=== PATIENT | female | born 1995 | race Caucasian/White ===

== ENCOUNTER 2016-06-18 18:47 | Emergency (ER) | payer OTHER ==
[2016-06-18] MEDS ORDERED: Ondansetron ODT TAB* 4 MG PO ONE (19:26)
[2016-06-18] MEDS ORDERED: Ondansetron INJ* 2 MG/ML VIAL IV ONE (22:05)
[2016-06-18] MEDS ORDERED: NS 0.9% 1000 ML* 2,000 ML IV ONE (22:05)
[2016-06-18] MEDS ORDERED: Ketorolac INJ* 30 MG/ML 1 ML VIAL IM ONE (22:05)
[2016-06-18] MEDS ORDERED: Meclizine TAB* 12.5 MG PO ONE (22:14)
[2016-06-18] MEDS ORDERED: Ketorolac INJ* 30 MG/ML 1 ML VIAL IV PUSH ONE (23:06)
[2016-06-18] MEDS ORDERED: Albuterol/Ipratropium NEB.SOL* Albuterol 2.5 MG/Ipratropium 0.5 MG 3 ML INH ONE (23:12)
[2016-06-18 23:21] LABS: Hematocrit 37 % (35-47); Hemoglobin 12.2 g/dl (12.0-16.0); Mean Corpuscular HGB Conc 33 g/dl (31-36); Mean Corpuscular Hemoglobin 28 pg (27-31); Mean Corpuscular Volume 84 fL (80-97); Mean Platelet Volume 8 um3 (7.4-10.4); Red Blood Count 4.38 10^6/ul (4.0-5.4); Red Cell Distribution Width 14 % (10.5-15); White Blood Count 8.6 10^3/ul (3.5-10.8)
[2016-06-18 23:38] LABS: ALT 16 U/L (7-52); AST 15 U/L (13-39); Albumin 3.7 g/dL (3.2-5.2); Alkaline Phosphatase 66 U/L (34-104); Anion Gap 4 mmol/L (2-11); BUN/Creatinine Ratio 9.2 (8-20); Blood Urea Nitrogen 6 mg/dL (6-24); CO2 Carbon Dioxide 30 mmol/L (22-32); Calcium 9.1 mg/dL (8.6-10.3); Chloride 103 mmol/L (101-111); EGFR African American 146.6 (>60); Globulin 2.6 g/dL (2-4); Glucose 93 mg/dL (70-100); Lipase 10 U/L (11.0-82.0); Potassium 3.8 mmol/L (3.5-5.0); Sodium 137 mmol/L (133-145); Total Protein 6.3 g/dL (6.4-8.9)
[2016-06-19] MEDS ORDERED: Meclizine TAB* 12.5 MG PO ONE ×2 (00:26)
--- NOTE | 2016-06-19 00:30 | ED ---
Indigo Jung Matthew, scribed for Ulises Barber on 06/18/16 at 2214 . GI/ HPI - HPI Summary HPI Summary: A 21 y/o female presents to the ED with nausea and vomiting since 3 days ago. Associated symptoms include vomiting - 6x today, dizziness, and headache. The patient denies diarrhea, abdominal pain, fever, sore throat, chest pain, and SOB. She was seen by her PCP for vertigo and prescribed meclazine at that time. She took her last dose of meclazine this morning, but she was unable to drive herself to the pharmacy to get more medication. She has a Hx of migraines, depression, and anxiety. - History of Current Complaint Chief Complaint: EDNauseaVomitDiarrh Time Seen by Provider: 06/18/16 21:48 Stated Complaint: VOMITING/HEADACHE Hx Obtained From: Patient Onset/Duration: Started Days Ago, Atraumatic, Still Present Timing: Constant Severity: Moderate Current Severity: Moderate Associated Signs and Symptoms: Positive: Dizziness, Nausea, Vomiting - 6x today. Negative: Diarrhea, Fever, Abdominal Pain, Chest Pain - Allergy/Home Medications Allergies/Adverse Reactions: Allergies Allergy/AdvReac Type Severity Reaction Status Date / Time Reglan Allergy Severe Itching Uncoded 03/29/16 12:29 PMH/Surg Hx/FS Hx/Imm Hx Endocrine/Hematology History: Denies: Hx Anticoagulant Therapy, Hx Diabetes, Hx Thyroid Disease Cardiovascular History: Denies: Hx Hypertension, Hx Pacemaker/ICD Respiratory History: Reports: Hx Asthma - Exercise Denies: Hx Chronic Obstructive Pulmonary Disease (COPD) GI History: Denies: Hx Ulcer History: Denies: Hx Renal Disease Neurological History: Denies: Hx Dementia, Hx Seizures Psychiatric History: Reports: Hx Anxiety - on prozac, Hx Depression - on prozac , Other Psychiatric Issues/Disorders - add and migraines takes percocet Denies: Hx Substance Abuse - Surgical History Surgery Procedure, Year, and Place: Right arm reset as a child under anesthesia. - Immunization History Date of Tetanus Vaccine: up to date per pt Infectious Disease History: No Infectious Disease History: Denies: Hx Clostridium Difficile, Hx Hepatitis, Hx Human Immunodeficiency Virus (HIV), Hx of Known/Suspected MRSA, Hx Shingles, Hx Tuberculosis, Hx Known/ Suspected VRE, Hx Known/Suspected VRSA, History Other Infectious Disease, Traveled Outside the [place] in Last 30 Days - Family History Known Family History: Positive: Respiratory Disease - asthma - Social History Alcohol Use: Rare Substance Use Type: Reports: None Substance Use Comment - Amount & Last Used: HX MARIJUANA USE; NOT SINCE FOUND OUT SHE WAS Smoking Status (MU): Former Smoker Type: Cigarettes Amount Used/How Often: 1 pk/wk Have You Smoked in the Last Year: Yes Review of Systems Constitutional: Negative Negative: Fever Eyes: Negative ENT: Negative Negative: Sore Throat Cardiovascular: Negative Negative: Chest Pain Respiratory: Negative Negative: Shortness Of Breath Positive: Vomiting, Nausea. Negative: Abdominal Pain Musculoskeletal: Negative Skin: Negative Neurological: Other - Dizziness Positive: Headache Psychological: Normal All Other Systems Reviewed And Are Negative: Yes Physical Exam Triage Information Reviewed: Yes Vital Signs On Initial Exam: Initial Vitals Temp Pulse Resp BP Pulse Ox 98.5 F 83 16 132/66 93 06/18/16 18:58 06/18/16 18:58 06/18/16 18:58 06/18/16 18:58 06/18/16 18:58 Vital Signs Reviewed: Yes Appearance: Positive: Well-Appearing, No Pain Distress Skin: Positive: Warm, Skin Color Reflects Adequate Perfusion, Dry Head/Face: Positive: Normal Head/Face Inspection Eyes: Positive: EOMI, PATO ENT: Positive: Normal ENT inspection, TMs normal. Negative: TM dull, TM red Neck: Positive: Supple, Nontender Respiratory/Lung Sounds: Positive: Clear to Auscultation, Breath Sounds Present Cardiovascular: Positive: RRR Abdomen Description: Positive: Nontender, Soft. Negative: Distended, Guarding Bowel Sounds: Positive: Present Musculoskeletal: Positive: Normal, Strength/ROM Intact Neurological: Positive: Normal, Sensory/Motor Intact, Alert, Oriented to Person Place, Time Psychiatric: Positive: Normal, Affect/Mood Appropriate Diagnostics - Vital Signs Vital Signs Temp Pulse Resp BP Pulse Ox 06/18/16 21:26 98.2 F 76 20 94 06/18/16 18:58 98.5 F 83 16 132/66 93 - Laboratory Result Diagrams: 06/18/16 22:56 06/18/16 22:56 Lab Statement: Any lab studies that have been ordered have been reviewed, and results considered in the medical decision making process. GIGU Course/Dx - Course Assessment/Plan: A 21 y/o female presents to the ED with vertigo, dizziness, and vomiting. Labs were reviewed. IV fluids were given along with Zofran and meclizine. The patient feels better and she will be discharged home on Zofran and meclizine. She is to follow-up with her PCP in three days. - Diagnoses Provider Diagnoses: Vertigo, Vomiting, Dizziness Discharge - Discharge Plan Condition: Stable Disposition: HOME Patient Education Materials: Ondansetron (By mouth), Meclizine (By mouth), Vertigo (ED) Referrals: Ky Dominguez OIL BURNER INSTALLER [Primary Care Provider] - 3 Days Additional Instructions: Please follow-up with your primary care physician in 3 days. The documentation as recorded by the Indigo whitman Matthew accurately reflects the service I personally performed and the decisions made by , Ulises Barber.
[2016-06-19 01:39] VITALS: BP 126/74
== END 2016-06-19 01:10 | disposition home or self-care (01) ==
LOC: ED 18:47
DX: R42 Dizziness and giddiness (principal); R11.10 Vomiting, unspecified; F41.9 Anxiety disorder, unspecified; F32.9 Major depressive disorder, single episode, unspecified; Z87.891 Personal history of nicotine dependence
CPT/HCPCS: 36415; 80053; 83690; 84702; 85025; 96360; 96374; 96375; 99284; A9270-GY; J1885; J2405

== ENCOUNTER 2017-02-12 16:04 | Emergency (ER) | payer OTHER ==
--- NOTE | 2017-02-12 17:11 | UC ---
Skin Complaint HPI - HPI Summary HPI Summary: ONSET OF PAINFUL VESICULAR LESIONS PERINEAL AREA FOR ABOUT 10 DAYS. PT IS IN A MONOGAMOUS RELATIONSHIP WITH HER BF WHO HAS KNOWN GENITAL HERPES AND TAKES DAILY VALTREX. THEY THINK HE MAYBE MISSED A FEW DAYS AND THEN SHE BROKE OUT. IS MOSTLY BETTER NOW EXCEPT FOR A SMALL PATCH ON THE RIGHT SIDE. - History of Current Complaint Chief Complaint: UCGeneralIllness Time Seen by Provider: 02/12/17 16:28 Stated Complaint: PERSONAL Hx Obtained From: Patient Hx Last Menstrual Period: 02/05/17 Onset/Duration: Sudden Onset, Lasting Days, Still Present Skin Exposure Onset/Duration: Days Ago Timing: Constant Onset Severity: Moderate Current Severity: Moderate Pain Intensity: 9 Pain Scale Used: 0-10 Numeric Location: Discrete - PERINEUM Character: Pain Aggravating Factor(s): Clothing, Touch Alleviating Factor(s): Nothing Associated Signs & Symptoms: Positive: Rash, Tenderness - Allergy/Home Medications Allergies/Adverse Reactions: Allergies Allergy/AdvReac Type Severity Reaction Status Date / Time Reglan Allergy Severe Itching Uncoded 02/12/17 16:08 Home Medications: Home Medications FLUoxetine CAP* [Prozac CAP*] 60 mg PO DAILY 02/12/17 [History Confirmed ] Lisdexamfetamine(NF) [Vyvanse(NF)] 70 mg PO DAILY 02/12/17 [History Confirmed ] Review of Systems Constitutional: Negative Respiratory: Negative Cardiovascular: Negative Gastrointestinal: Negative Genitourinary: Ulceration/Lesion All Other Systems Reviewed And Are Negative: Yes PMH/Surg Hx/FS Hx/Imm Hx Previously Healthy: Yes Other History Of: Negative For: Anticoagulant Therapy - Surgical History Surgical History: Yes Surgery Procedure, Year, and Place: Right arm reset as a child under anesthesia. - Family History Known Family History: Positive: Respiratory Disease - asthma - Social History Alcohol Use: Rare Substance Use Type: None Substance Use Comment - Amount & Last Used: HX MARIJUANA USE; NOT SINCE FOUND OUT SHE WAS Smoking Status (MU): Current Some Day Smoker Type: Cigarettes Amount Used/How Often: 1 pk/wk Have You Smoked in the Last Year: Yes When Did the Patient Quit Smoking/Using Tobacco: 05/30/2014 - Immunization History Most Recent Influenza Vaccination: Most Recent Tetanus Shot: 11/06/14 Most Recent Pneumonia Vaccination: none Physical Exam Triage Information Reviewed: Yes Appearance: Well-Appearing, No Pain Distress, Well-Nourished Vital Signs: Initial Vital Signs Temp 96.8 F 02/12/17 16:08 Pulse 103 02/12/17 16:08 Resp 16 02/12/17 16:08 Pulse Ox 99 02/12/17 16:08 Vital Signs Reviewed: Yes Eyes: Positive: Conjunctiva Clear ENT: Positive: Hearing grossly normal Neck: Positive: Supple, Nontender, No Lymphadenopathy Respiratory Exam: Normal Cardiovascular Exam: Normal Abdomen Description: Positive: Soft Musculoskeletal: Positive: No Edema Neurological: Positive: Alert Psychological: Positive: Age Appropriate Behavior Skin: Positive: Other - 2CM IRREGULAR SHALLOW ULCERATION RIGHT PERINEUM. TENDER. Course/Dx - Diagnoses Provider Diagnoses: GENITAL HERPES - INITIAL OUTBREAK Discharge - Discharge Plan Condition: Stable Disposition: HOME Prescriptions: Acyclovir OINT 5%(NF) [Zovirax Oint 5%(NF)] 1 applic TOPICAL .SIX TIMES A DAY # 1 tube ValACYclovir (*) [Valtrex 1 GM(*)] 1 gm PO BID #14 tab Patient Education Materials: Genital Herpes Simplex (ED) Forms: *Work Release Referrals: Ky Dominguez NP [Primary Care Provider] - 2 Weeks Additional Instructions: FOLLOW-UP WITH YOUR PCP TO DISCUSS DAILY PROPHYLACTIC TREATMENT. THE ZOVIRAX OINTMENT MAY NEED A PRIOR AUTHORIZATION. IF SO YOU WILL NEED TO GET THIS FROM YOUR PCP.
== END 2017-02-12 17:19 | disposition home or self-care (01) ==
LOC: UCEAST 16:04
DX: A60.04 Herpesviral vulvovaginitis (principal); F17.210 Nicotine dependence, cigarettes, uncomplicated; Z88.8 Allergy status to other drugs, medicaments and biological substances
CPT/HCPCS: 99212; G0463

== ENCOUNTER 2017-03-09 22:28 | Observation (INO) | payer OTHER ==
[2017-03-09] MEDS ORDERED: Albuterol/Ipratropium NEB.SOL* Albuterol 2.5 MG/Ipratropium 0.5 MG 3 ML INH ONE (22:40)
[2017-03-10] MEDS ORDERED: guaiFENesin/CODIEN 100MG-10MG* 5 ML UDC PO ONE (00:01)
[2017-03-10] MEDS ORDERED: methylPREDNISolone 125 MG* 2 ML VIAL IV ONE (00:01)
[2017-03-10] MEDS ORDERED: Albuterol 2.5 MG/3 ML NEB.SOL* (0.083%) ONE ×2 (00:47)
[2017-03-10] MEDS: Albuterol 2.5 MG/3 ML NEB.SOL* (0.083%) INH SCH ×3 (00:51→01:28)
[2017-03-10 01:03] LABS: Hematocrit 37 % (35-47); Hemoglobin 12.4 g/dl (12.0-16.0); Mean Corpuscular HGB Conc 33 g/dl (31-36); Mean Corpuscular Hemoglobin 29 pg (27-31); Mean Corpuscular Volume 88 fL (80-97); Mean Platelet Volume 8 um3 (7.4-10.4); Red Blood Count 4.22 10^6/ul (4.0-5.4); Red Cell Distribution Width 14 % (10.5-15); White Blood Count 9.9 10^3/ul (3.5-10.8)
[2017-03-10 01:10] LABS: Urine Bacteria Absent (Absent); Urine Bilirubin Negative (Negative); Urine Glucose Negative (Negative); Urine Nitrite Negative (Negative)
[2017-03-10 01:20] LABS: ALT 19 U/L (7-52); AST 19 U/L (13-39); Albumin 3.8 g/dL (3.2-5.2); Alkaline Phosphatase 80 U/L (34-104); Anion Gap 5 mmol/L (2-11); BUN/Creatinine Ratio 11.9 (8-20); Blood Urea Nitrogen 7 mg/dL (6-24); CO2 Carbon Dioxide 25 mmol/L (22-32); Calcium 8.8 mg/dL (8.6-10.3); Chloride 107 mmol/L (101-111); EGFR African American 162.4 (>60); EGFR Non-African American 126.3 (>60); Globulin 2.7 g/dL (2-4); Glucose 83 mg/dL (70-100); Potassium 3.8 mmol/L (3.5-5.0); Sodium 137 mmol/L (133-145); Total Protein 6.5 g/dL (6.4-8.9)
[2017-03-10] MEDS ORDERED: Azithromycin IV(*) 500 MG in NS 0.9% 250 ML* 250 ML IVPB ONE (01:41)
--- NOTE | 2017-03-10 01:59 | ED ---
Katty Jung Rebecca, scribed for Denise Macias MD on 03/09/17 at 2350 . Shortness of Breath - HPI Summary HPI Summary: Pt is a 22 y/o F who presents to ED c/o nonproductive cough and SOB. Sx have been present for multiple days, worsening last night. Sx aggravated by nothing, alleviated temporarily by nebulizer. Notes CP characterized as tightness. Additionally c/o rash on her back that has been present for "weeks going on months" as well as L foot tingling that has been present for "a while." Denies fever. PMHx asthma - Dx at age 9 and she has a nebulizer which she has been alternating duonebs and albuterol every hour. She has never been admitted for asthma. Recent Dx of UTI but she did not picker feeder her meds. PCP is Dr. Dominguez where she had labs done a few weeks ago. Has not gotten her flu vaccination. Recent Dx of UTI. Uses Advair, Ventolin (rescue inhaler), Zyrtec, Fluticasone, Prozac, Vyvanse, Adderall, Ativan, Gabapentin (started a few weeks ago) and scopolamine patch. Uses Nexplanon for contraception. - History of Current Complaint Chief Complaint: EDShortnessOfBreath Time Seen by Provider: 03/09/17 23:15 Hx Obtained From: Patient, Family/Physician [facility] - mother is with pt Onset/Duration: Gradual Onset, Lasting Days, Still Present, Worse Since - Last night Timing: Constant Current Severity: Severe Dyspnea At: Rest Aggrevating Factors: Nothing Alleviating Factors: Bronchodilators, Other - Nebulizer Associated Signs & Symptoms: Cough (Nonproductive) - Allergy/Home Medications Allergies/Adverse Reactions: Allergies Allergy/AdvReac Type Severity Reaction Status Date / Time Reglan Allergy Severe Itching Uncoded 02/12/17 16:08 PMH/Surg Hx/FS Hx/Imm Hx Previously Healthy: No Endocrine/Hematology History: Denies: Hx Anticoagulant Therapy, Hx Diabetes, Hx Thyroid Disease Cardiovascular History: Denies: Hx Hypertension, Hx Pacemaker/ICD Respiratory History: Reports: Hx Asthma - Exercise, Hx Seasonal Allergies Denies: Hx Chronic Obstructive Pulmonary Disease (COPD) GI History: Denies: Hx Ulcer History: Denies: Hx Renal Disease Neurological History: Reports: Other Neuro Impairments/Disorders - Vertigo Denies: Hx Dementia, Hx Seizures Psychiatric History: Reports: Hx Anxiety - on prozac, Hx Depression - on prozac , Other Psychiatric Issues/Disorders - ADD and migraines, takes percocet, Vyvanse and Adderal Denies: Hx Substance Abuse - Surgical History Surgery Procedure, Year, and Place: Right arm reset as a child under anesthesia. 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 Lives: With Family Alcohol Use: Rare Substance Use Type: Reports: None Substance Use Comment - Amount & Last Used: HX MARIJUANA USE in past Smoking Status (MU): Current Some Day Smoker Type: Cigarettes Amount Used/How Often: 1 pk/wk Have You Smoked in the Last Year: Yes Review of Systems Negative: Fever Positive: Chest Pain - tightness Positive: Shortness Of Breath, Cough - nonproductive Gastrointestinal: Negative Positive: dysuria Positive: Rash - Back Neurological: Other - L foot tingling Psychological: Normal All Other Systems Reviewed And Are Negative: Yes Physical Exam Triage Information Reviewed: Yes Vital Signs On Initial Exam: Initial Vitals Temp Pulse Resp BP Pulse Ox 98.3 F 88 20 124/74 88 03/09/17 22:35 03/09/17 22:35 03/09/17 22:35 03/09/17 22:35 03/09/17 22:35 Vital Signs Reviewed: Yes Appearance: Positive: No Pain Distress, Well-Nourished, Ill-Appearing - mildly Skin: Positive: Warm, Skin Color Reflects Adequate Perfusion, Other - Ecchymosis on her L anterior tibia that is old, macular streaky rash on her back Head/Face: Positive: Normal Head/Face Inspection Eyes: Positive: Normal ENT: Positive: Normal ENT inspection, Pharynx normal, TMs normal. Negative: Nasal congestion, Nasal drainage, Muffled/hoarse voice Neck: Positive: Supple, Nontender, No Lymphadenopathy Respiratory/Lung Sounds: Positive: Breath Sounds Present, Wheezes - Inspiratory and expiratory wheezing, Other - She cannot take a deep breath without coughing , she has shallow respirations that are not labored Cardiovascular: Positive: RRR, Pulses are Symmetrical in both Upper and Lower Extremities. Negative: Leg Edema Left, Leg Edema Right Abdomen Description: Positive: Nontender, No Organomegaly, Soft. Negative: Distended, Guarding Bowel Sounds: Positive: Present Musculoskeletal: Positive: Strength/ROM Intact, Other - No calf tenderness. Negative: Edema Left, Edema Right Neurological: Positive: Sensory/Motor Intact, Alert, Oriented to Person Place, Time, Facial Symmetry, Speech Normal Psychiatric: Positive: Normal Diagnostics - Vital Signs Vital Signs Temp Pulse Resp BP Pulse Ox 03/09/17 22:57 85 16 97 03/09/17 22:35 98.3 F 88 20 124/74 88 - Laboratory Lab Results: Lab Results 03/10/17 03/10/17 03/10/17 Range/Units 00:40 00:40 00:40 WBC 9.9 (3.5-10.8) 10^3/ul RBC 4.22 (4.0-5.4) 10^6/ul Hgb 12.4 (12.0-16.0) g/dl Hct 37 (35-47) % MCV 88 (80-97) fL MCH 29 (27-31) pg MCHC 33 (31-36) g/dl RDW 14 (10.5-15) % Plt Count 246 (150-450) 10^3/ul MPV 8 (7.4-10.4) um3 Neut % (Auto) 60.9 (38-83) % Lymph % (Auto) 26.4 (25-47) % Pope % (Auto) 5.7 (1-9) % Eos % (Auto) 6.3 H (0-6) % Baso % (Auto) 0.7 (0-2) % Absolute Neuts (auto) 6.0 (1.5-7.7) 10^3/ul Absolute Lymphs (auto) 2.6 (1.0-4.8) 10^3/ul Absolute Monos (auto) 0.6 (0-0.8) 10^3/ul Absolute Eos (auto) 0.6 (0-0.6) 10^3/ul Absolute Basos (auto) 0.1 (0-0.2) 10^3/ul Absolute Nucleated RBC 0 10^3/ul Nucleated RBC % 0 INR (Anticoag Therapy) (0.89-1.11) D-Dimer, Quantitative (Less Than 230) ng/mL Sodium 137 (133-145) mmol/L Potassium 3.8 (3.5-5.0) mmol/L Chloride 107 (101-111) mmol/L Carbon Dioxide 25 (22-32) mmol/L Anion Gap 5 (2-11) mmol/L BUN 7 (6-24) mg/dL Creatinine 0.59 (0.51-0.95) mg/dL Est GFR ( Amer) 162.4 (>60) Est GFR (Non-Af Amer) 126.3 (>60) BUN/Creatinine Ratio 11.9 (8-20) Glucose 83 (70-100) mg/dL Lactic Acid 0.8 (0.5-2.0) mmol/L Calcium 8.8 (8.6-10.3) mg/dL Total Bilirubin 0.40 (0.2-1.0) mg/dL AST 19 (13-39) U/L ALT 19 (7-52) U/L Alkaline Phosphatase 80 (34-104) U/L Troponin I 0.00 (<0.04) ng/mL C-Reactive Protein 36.10 H (< 5.00) mg/L Total Protein 6.5 (6.4-8.9) g/dL Albumin 3.8 (3.2-5.2) g/dL Globulin 2.7 (2-4) g/dL Albumin/Globulin Ratio 1.4 (1-3) Beta HCG, Quant < 0.60 mIU/mL Urine Color Urine Appearance Urine pH (5-9) Ur Specific Delia (1.010-1.030) Urine Protein (Negative) Urine Ketones (Negative) Urine Blood (Negative) Urine Nitrate (Negative) Urine Bilirubin (Negative) Urine Urobilinogen (Negative) Ur Leukocyte Esterase (Negative) Urine WBC (Auto) (Absent) Urine RBC (Auto) (Absent) Ur Squamous Epith Cells (Absent) Urine Bacteria (Absent) Urine Glucose (Negative) Urine Ascorbic Acid (Negative) Influenza A (Rapid) (Negative) Influenza B (Rapid) (Negative) 03/10/17 03/10/17 03/10/17 Range/Units 00:40 00:50 01:06 WBC (3.5-10.8) 10^3/ul RBC (4.0-5.4) 10^6/ul Hgb (12.0-16.0) g/dl Hct (35-47) % MCV (80-97) fL MCH (27-31) pg MCHC (31-36) g/dl RDW (10.5-15) % Plt Count (150-450) 10^3/ul MPV (7.4-10.4) um3 Neut % (Auto) (38-83) % Lymph % (Auto) (25-47) % Pope % (Auto) (1-9) % Eos % (Auto) (0-6) % Baso % (Auto) (0-2) % Absolute Neuts (auto) (1.5-7.7) 10^3/ul Absolute Lymphs (auto) (1.0-4.8) 10^3/ul Absolute Monos (auto) (0-0.8) 10^3/ul Absolute Eos (auto) (0-0.6) 10^3/ul Absolute Basos (auto) (0-0.2) 10^3/ul Absolute Nucleated RBC 10^3/ul Nucleated RBC % INR (Anticoag Therapy) 1.07 (0.89-1.11) D-Dimer, Quantitative 239 H (Less Than 230) ng/mL Sodium (133-145) mmol/L Potassium (3.5-5.0) mmol/L Chloride (101-111) mmol/L Carbon Dioxide (22-32) mmol/L Anion Gap (2-11) mmol/L BUN (6-24) mg/dL Creatinine (0.51-0.95) mg/dL Est GFR ( Amer) (>60) Est GFR (Non-Af Amer) (>60) BUN/Creatinine Ratio (8-20) Glucose (70-100) mg/dL Lactic Acid (0.5-2.0) mmol/L Calcium (8.6-10.3) mg/dL Total Bilirubin (0.2-1.0) mg/dL AST (13-39) U/L ALT (7-52) U/L Alkaline Phosphatase (34-104) U/L Troponin I (<0.04) ng/mL C-Reactive Protein (< 5.00) mg/L Total Protein (6.4-8.9) g/dL Albumin (3.2-5.2) g/dL Globulin (2-4) g/dL Albumin/Globulin Ratio (1-3) Beta HCG, Quant mIU/mL Urine Color Yellow Urine Appearance Clear Urine pH 7.0 (5-9) Ur Specific Delia 1.024 (1.010-1.030) Urine Protein Negative (Negative) Urine Ketones Negative (Negative) Urine Blood Negative (Negative) Urine Nitrate Negative (Negative) Urine Bilirubin Negative (Negative) Urine Urobilinogen Negative (Negative) Ur Leukocyte Esterase Trace H (Negative) Urine WBC (Auto) 2+(11-20/hpf) H (Absent) Urine RBC (Auto) 2+(6-10/hpf) H (Absent) Ur Squamous Epith Cells Present H (Absent) Urine Bacteria Absent (Absent) Urine Glucose Negative (Negative) Urine Ascorbic Acid * H (Negative) Influenza A (Rapid) Negative (Negative) Influenza B (Rapid) Negative (Negative) Result Diagrams: 03/10/17 00:40 03/10/17 00:40 Lab Statement: Any lab studies that have been ordered have been reviewed, and results considered in the medical decision making process. - Radiology CXR Xray Interpretation: Positive (See Comments) - RML infiltrate Radiology Interpretation Completed By: ED Physician - EKG 0028 Cardiac Rate: NL - 79 bpm EKG Rhythm: Sinus Rhythm EKG Interpretation: Nl AV CT, nl QTC, nl axis, Prolonged IV CT (118) Re-Evaluation - Re-Evaluation First Eval Re-Evaluation Time: 01:39 Comment: O2 saturation 95% on 4L nasal cannula with 3rd albuterol neb going (8L O2). Pt still with inspiratory wheezes after 3rd albuterol nebulizer, talking to Dr. Marr for admission. Course/Dx - Course Assessment/Plan: D-Dimer is abnormal, CTA considered and discussed with Dr. Marr, will hold off at this time. Allergy noted. Pt medications reviewed this visit. Elevated BP noted. Given duoneb on presentation with some relief fo O2 sat 88%. Given 3 albuterol nebs. O2 4L NC. Solumedrol 125mg IV x 1. Robitussin with codeine 10ml po given with good relief - Diagnoses Differential Diagnosis/HQI/PQRI: Positive: Asthma, Bronchitis, Pneumonia, Pulmonary Embolism Provider Diagnoses: Acute asthma exacerbation, Pneumonia, Hypoxia - Physician Notifications Discussed Care of Patient With: Jaye Marr Time Discussed With Above Provider: 01:40 Instructed by Provider To: Other - Accepts pt for admission. - Critical Care Time Critical Care Time: 30-74 min - 30 minutes Discharge - Discharge Plan Condition: Stable Disposition: ADMITTED TO [facility] Referrals: Ky Dominguez, IMAGING ENGINEER [Primary Care Provider] - The documentation as recorded by the Katty whitman Rebecca accurately reflects the service I personally performed and the decisions made by , Denise Macias MD.
[2017-03-10] MEDS ORDERED: Acetaminophen TAB* 325 MG PO PRN (02:29)
[2017-03-10] MEDS ORDERED: HYDROcodone/ACETAMIN 5-325 MG* 1 TAB PO PRN (02:29)
[2017-03-10] MEDS ORDERED: guaiFENesin/CODIEN 100MG-10MG* 5 ML UDC PO PRN (02:31)
[2017-03-10] MEDS ORDERED: Iohexol 350* (CONTRAST) 500 ML MDV IV ONE (02:47)
[2017-03-10] MEDS: Albuterol/Ipratropium NEB.SOL* Albuterol 2.5 MG/Ipratropium 0.5 MG 3 ML INH SCH ×6 (03:00→23:40)
[2017-03-10] MEDS: NS 0.9% 1000 ML* 1,000 ML IV SCH ×3 (03:40→23:59)
[2017-03-10] MEDS: Albuterol 2.5 MG/3 ML NEB.SOL* (0.083%) INH PRN (04:41)
--- NOTE | 2017-03-10 06:06 | HP ---
CC: Ky Dominguez NP * HISTORY AND PHYSICAL: DATE OF ADMISSION: 03/10/17 PRIMARY CARE PROVIDER: Ky Dominguez NP CHIEF COMPLAINT: Shortness of breath and wheezing. HISTORY OF PRESENT ILLNESS: Ms. Herr is a 22-year-old female who has a history of asthma that she states is worsening over the last several months, who presents to the emergency room with progressive shortness of breath and wheezing. The patient states that over the last 1 week or so, she has developed shortness of breath that has progressively worsened. She states that she, over the last 2 days or so, has been using her nebulizer approximately every 2 hours. The patient states that her breathing is so bad that she would take half a nebulizer treatment to get out of bed to go to the bathroom and then take the other half of the nebulizer treatment when she got back into bed due to her severe shortness of breath. The patient finally decided that she would present to the emergency room for evaluation. In addition to the severe shortness of breath, the patient has had significant coughing. She states that she has been vomiting due to the coughing fits that she has been having. She denies any sputum production. She denies any fevers or chills. She states that she does work at [employer]. The patient states that her asthma has been so bad that she used 1 rescue inhaler completely in the last 1 week. She denies any recent long distance travel history. She does complain of a feeling of restricted breathing and pressure-like chest discomfort. She has had intermittent swelling of her legs, though none now. She notes that the swelling of the legs comes on when she is standing. The patient had been a smoker, but states that she quit 2 days ago due to being so severely short of breath. The patient was smoking routinely over the last 6 months, approximately a pack per day. PAST MEDICAL HISTORY: 1. Asthma. 2. Migraines. 3. Depression. PAST SURGICAL HISTORY: None. ALLERGIES: REGLAN. MEDICATIONS: 1. Advair 250/50 two puffs inhaled daily. 2. Albuterol neb 1 neb inhaled q.4 hours p.r.n. shortness of breath. 3. DuoNeb 1 neb inhaled q.4 hours p.r.n. shortness of breath. 4. Gabapentin 300 mg p.o. q.h.s. 5. Prozac 60 mg p.o. daily. 6. Flonase 2 squirts to each nostril daily. 7. Zyrtec 10 mg p.o. daily. FAMILY HISTORY: Mom is living. She has a history of hypertension and depression. Dad is also living. He has a history of thyroid issues. SOCIAL HISTORY: The patient is a current smoker who states that she quit 2 days prior to admission. She does see this as a jumping off point to quit smoking. She drinks alcohol on occasion. 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 She has a boyfriend. She has 2 children. She does indicate that her mom would be her healthcare proxy. REVIEW OF SYSTEMS: In addition to the review of systems as in the HPI, the patient also complains of very poor appetite over the last several days, tingling in the left foot and occasionally the right foot, and a rash on her back. She states the rash comes and goes. She does describe it as being itchy. PHYSICAL EXAMINATION GENERAL: The patient is a well-developed, obese, young female sitting in the stretcher, appearing to be in no acute distress. VITAL SIGNS: Blood pressure 123/81, pulse 95, respirations 20, temp 98.3, O2 sat 92% on 4 L of oxygen. HEENT: Pupils are equal. They are round and react to light. Extraocular muscles are intact. Oropharynx is clear. Oral mucosa is moist. The patient's tongue does have some white patches on it. She feels this is from being dehydrated. There is no submandibular, cervical, or supraclavicular adenopathy. Thyroid is not enlarged. No thyroid nodules are noted. PULMONARY: Breath sounds are markedly diminished at the bases, but otherwise clear. CARDIAC: Normal S1, S2. Heart rate is tachycardic, but regular. I do not appreciate any murmurs. There is no lower extremity edema. ABDOMEN: Bowel sounds are present. Abdomen is soft, nontender, and nondistended. MUSCULOSKELETAL: There is no cyanosis or clubbing of the digits. There is full active range of motion of all 4 extremities. SKIN: Warm and dry. The patient has a salmon-colored rash to her back with a very fine scale consistent with tinea versicolor. NEUROLOGIC: Cranial nerves II through XII are grossly intact. Sensation is intact to light touch throughout. Strength is 5/5 and symmetric in both upper and lower extremities bilaterally. PSYCH: The patient is alert. She is oriented x3. Affect appears appropriate. DIAGNOSTIC STUDIES/LABORATORY DATA: WBC 9.9, hemoglobin 12.4, hematocrit 37, platelets 246. INR 1.07. D-dimer 239. Sodium 137, potassium 3.8, chloride 107 , CO2 25, BUN 7, creatinine 0.59, glucose 83, lactic acid 0.8, calcium 8.8. Bilirubin 0.4, AST 19, ALT 19, alk phos 80. Troponin 0. CRP 36.1. Albumin 3.8. Urinalysis reveals specific gravity of 1.024, trace leukocyte esterase, 2+ wbc's, 2+ rbc's, negative bacteria. Influenza A and B negative. ASSESSMENT AND PLAN: Ms. Herr is a 22-year-old female who has had at least 1 week of progressive shortness of breath in the setting of likely poorly controlled asthma. 1. Acute asthma exacerbation with associated hypoxia. The patient is likely short of breath and hypoxic related to her asthma exacerbation. She is feeling much better since being in the emergency room, especially that her coughing has subsided after having Robitussin A-C. The patient does continue to feel tightness in her chest, however. We will admit her under observation status and provide DuoNeb treatments every 4 hours while awake and albuterol every 4 hours as needed for shortness of breath. The patient will also continue on Solu -Medrol 40 mg IV q.12 hours. The patient's chest x-ray has a questionable right middle lobe infiltrate. I will be getting a CTA to rule out pulmonary embolism, which will better characterize this. I will have the patient on azithromycin for this possible pneumonia. I will go ahead and send a sputum culture if the patient is able to produce one as well as send urine for Strep pneumo and Legionella antigens. 2. Hypoxia. I suspect this is related to the patient's asthma exacerbation and possible pneumonia; however, given how severely short of breath she is and how hypoxic she is, I do think it is warranted to rule out pulmonary embolism given her elevated D-dimer. The patient will go for this test momentarily. 3. Depression. The patient will be maintained on her usual dose of Prozac. 4. Probable tinea versicolor. The patient should be started on selenium sulfide 2.5% shampoo. She can apply to her rash for 10 minutes daily for a week and hopefully this will help with the rash. 5. DVT prophylaxis. According to the Adult Thrombosis Prophylaxis Risk Factor Assessment Guide, the patient has a total risk factor score of 1, making her low risk. Ambulation will be utilized for DVT prophylaxis. 6. Code status is full and again, the patient indicates that her mom would be her healthcare proxy. TIME SPENT: Fifty-five minutes were spent admitting this patient. [id number]/[facility] #: [id number] CANDY
[2017-03-10] MEDS: cefTRIAXone VIAL(*) 1,000 MG in NS 0.9% 50 ML* 50 ML IVPB SCH (07:53)
[2017-03-10] MEDS: Mometasone/Formoter 200/5 MDI INH SCH ×2 (07:58→19:55)
[2017-03-10] MEDS: Fluticasone NASAL SPRAY 50MCG* 16 gm SPRAY BTL BOTH NARES SCH (07:59)
[2017-03-10] MEDS: methylPREDNISolone SOD 40 MG* 1 ML VIAL IV SCH ×2 (08:00→21:09)
[2017-03-10] MEDS: FLUoxetine CAP* 20 MG PO SCH (08:00)
--- NOTE | 2017-03-10 08:11 | RAD ---
INDICATION: Short of breath COMPARISON: March 29, 2016 TECHNIQUE: PA and lateral dual-energy views were obtained. FINDINGS: Bones/Soft Tissues: There are no acute bony findings. Cardiomediastinal: The cardiomediastinal silhouette is normal. Lungs: There is patchy infiltrative change in the right lower lobe compatible with acute pneumonitis. There is right middle lobe infiltrate. Pleura: There are no pleural effusions. Other: None IMPRESSION: BILATERAL PNEUMONIA. SUGGEST FOLLOW-UP.
--- NOTE | 2017-03-10 08:47 | RAD ---
INDICATION: Nonproductive cough x3 days. Patient reports history of asthma. COMPARISON: Same day chest x-ray which shows infiltrate at the right lower lung. TECHNIQUE: Axial source images were acquired following the administration of 79 mL Omnipaque [address] angiographic technique. Coronal and sagittal reconstructed images were constructed and reviewed. FINDINGS: There there are no filling defects in the pulmonary arteries to indicate acute pulmonary embolic disease. There is patchy infiltrate in the medial aspect of the right middle lobe, the dependent lateral aspect of the left lower lobe and potentially at the left lung apex. There are tiny bibasilar pleural effusions. The heart is normal in size. There is no evidence of pericardial effusion. There is no evidence of aortic aneurysm or dissection. There is no mediastinal, hilar, or axillary lymphadenopathy. The spleen measures up to 14.8 cm in greatest axial dimension. IMPRESSION: 1. No CT of evidence of pulmonary embolism. 2. Multifocal pneumonia and tiny pleural effusions. 3. Splenomegaly.
--- NOTE | 2017-03-10 15:40 | PN ---
Subjective Date of Service: 03/10/17 Interval History: Patient seen and examined at bedside. Denies fever, chills, chest discomfort, N/ V/D. Pt states that she continues to have shortness of breath, worse with exertion. Family History: Unchanged from Admission Social History: Unchanged from Admission Past Medical History: Unchanged from Admission Objective Active Medications: Acetaminophen (Tylenol Tab*) 650 mg PO Q4H PRN Reason: PAIN Hydrocodone Bitart/Acetaminophen ([place] 5-325 Tab*) 1 tab PO Q6H PRN Reason: PAIN Albuterol (Ventolin 2.5 Mg/3 Ml Neb.Rajwinder*) 2.5 mg INH Q2H PRN Reason: SOB/ WHEEZING Albuterol/Ipratropium (Duoneb (Albuterol 2.5 Mg/Ipratropium 0.5 Mg)) 1 neb INH [id number] AWAKE NELLY Fluoxetine HCl (Prozac Cap*) 60 mg PO DAILY [facility] Fluticasone Propionate (Flonase Nasal [place] 50mcg*) 2 spray BOTH NARES DAILY [facility] Gabapentin (Neurontin Cap(*)) 300 mg PO BEDTIME NELLY Guaifenesin/Codeine Phosphate (Robitussin Ac 100mg-10mg*) 5 ml PO Q4H PRN Reason: COUGH Sodium Chloride (Ns 0.9% 1000 Ml*) 1,000 mls @ 125 mls/hr IV PER RATE NELLY Azithromycin 500 mg/ Sodium (Chloride) 250 mls @ 250 mls/hr IVPB Q24H NELLY Ceftriaxone Sodium 1,000 mg/ (Sodium Chloride) 50 mls @ 200 mls/hr IVPB Q24H [facility] Methylprednisolone Sodium Succinate (Solu-Medrol 40 Mg) 40 mg IV Q12H NELLY Mometasone Furoate/Formoterol Fumar (Dulera 200/5 Mdi*) 2 puff INH BID NLELY Vital Signs 03/10/17 03/10/17 03/10/17 02:41 03:20 03:34 Temperature 98.2 F 98.2 F Pulse Rate 101 107 107 Respiratory 24 24 24 Rate Blood Pressure 116/78 116/71 116/71 (mmHg) O2 Sat by Pulse 92 95 95 Oximetry 03/10/17 03/10/17 03/10/17 03:45 04:40 07:24 Temperature 98.3 F Pulse Rate 95 77 Respiratory 24 16 17 Rate Blood Pressure 127/69 (mmHg) O2 Sat by Pulse 94 91 Oximetry 03/10/17 03/10/17 03/10/17 07:36 08:00 11:12 Temperature Pulse Rate 100 94 Respiratory 18 18 16 Rate Blood Pressure (mmHg) O2 Sat by Pulse 94 95 Oximetry Oxygen Devices in Use Now: None Appearance: NAD, sitting up in bed Respiratory: Symmetrical Chest Expansion and Respiratory Effort, Clear to Auscultation - , diminished with few exp wheezes Cardiovascular: NL Sounds; No Murmurs; No JVD, RRR Abdominal: NL Sounds; No Tenderness; No Distention Extremities: No Edema Skin: No Rash or Ulcers Neurological: Alert and Oriented x 3, NL Muscle Strength and Tone Lines/Tubes/Other Access: Clean, Dry and Intact Peripheral IV - site benign Nutrition: Taking PO's Result Diagrams: 03/10/17 00:40 03/10/17 00:40 Additional Lab and Data: Assess/Plan/Problems-Billing Assessment: Ms. Herr is a 22 yo female with PMH significant for asthma, migraines, and depression who presented to the emergency room with 1 week of progressive shortness of breath. - Patient Problems (1) Asthma exacerbation Code(s): J45.901 - UNSPECIFIED ASTHMA WITH (ACUTE) EXACERBATION SNOMED Code(s) : 114057654 Comment: - With hypoxia - Continue nebs, steroids, ceftriaxone and azithromycin (2) Pneumonia Code(s): J18.9 - PNEUMONIA, UNSPECIFIED ORGANISM SNOMED Code(s): 583538936 Comment: - Afebrile and no leukocytosis - Urine for legionella and Strep pneumo negative - Sputum culture pending - Continue ceftriaxone and azithromycin (3) Hypoxia Code(s): R09.02 - HYPOXEMIA SNOMED Code(s): 535435001 Comment: - Improving - Suspect secondary to asthma exacerbation and PNA - CTA chest - No PE (4) Depression Code(s): F32.9 - MAJOR DEPRESSIVE DISORDER, SINGLE EPISODE, UNSPECIFIED SNOMED Code(s): 13680847 Comment: - Continue Prozac (5) Tinea versicolor Comment: - Continue selenium sulfide for 1 week (6) DVT prophylaxis Code(s): MKT2847 - SNOMED Code(s): 194052487 Comment: - Ambulation (7) Full code status Code(s): Z78.9 - OTHER SPECIFIED HEALTH STATUS SNOMED Code(s): 300623872 Status and Disposition: OBV. Discharge to home when medically stable.
[2017-03-10] MEDS ORDERED: Gabapentin CAP(*) 300 MG PO SCH (21:00)
[2017-03-11] MEDS ORDERED: Azithromycin IV(*) 500 MG in NS 0.9% 250 ML* 250 ML IVPB SCH (03:00)
[2017-03-11] MEDS: Albuterol/Ipratropium NEB.SOL* Albuterol 2.5 MG/Ipratropium 0.5 MG 3 ML INH SCH ×3 (03:00→11:36)
[2017-03-11] MEDS: Albuterol 2.5 MG/3 ML NEB.SOL* (0.083%) INH PRN (04:15)
[2017-03-11 07:04] LABS: Hematocrit 35 % (35-47); Hemoglobin 11.4 g/dl (12.0-16.0); Mean Corpuscular HGB Conc 32 g/dl (31-36); Mean Corpuscular Hemoglobin 29 pg (27-31); Mean Corpuscular Volume 89 fL (80-97); Mean Platelet Volume 8 um3 (7.4-10.4); Red Blood Count 3.94 10^6/ul (4.0-5.4); Red Cell Distribution Width 14 % (10.5-15); White Blood Count 19.9 10^3/ul (3.5-10.8)
[2017-03-11] MEDS: Mometasone/Formoter 200/5 MDI INH SCH (08:06)
[2017-03-11] MEDS: cefTRIAXone VIAL(*) 1,000 MG in NS 0.9% 50 ML* 50 ML IVPB SCH (08:09)
[2017-03-11] MEDS: FLUoxetine CAP* 20 MG PO SCH (08:10)
[2017-03-11] MEDS: NS 0.9% 1000 ML* 1,000 ML IV SCH (08:21)
[2017-03-11] MEDS ORDERED: predniSONE TAB* 50 MG PO SCH (09:00)
[2017-03-11] MEDS: Fluticasone NASAL SPRAY 50MCG* 16 gm SPRAY BTL BOTH NARES SCH (09:26)
[2017-03-11 12:39] VITALS: BP 121/72
--- NOTE | 2017-03-11 13:12 | PN ---
Subjective Date of Service: 03/11/17 Interval History: Patient seen and examined at bedside. Pt states that she is feeling much better today and has not been needing oxygen to ambulate to the bathroom. Pt reports that she has been needing nebs every 4 hours and starts to feel tight and cough when getting close. Denies fever, chills, chest discomfort, N/V/D. Reports mild shortness of breath. Denies urinary symptoms, Pt states that she was diagnosed 2 weeks ago with an UTI and never took the ABX. Family History: Unchanged from Admission Social History: Unchanged from Admission Past Medical History: Unchanged from Admission Objective Active Medications: Acetaminophen (Tylenol Tab*) 650 mg PO Q4H PRN Reason: PAIN Hydrocodone Bitart/Acetaminophen ([place] 5-325 Tab*) 1 tab PO Q6H PRN Reason: PAIN Albuterol (Ventolin 2.5 Mg/3 Ml Neb.Rajwinder*) 2.5 mg INH Q2H PRN Reason: SOB/ WHEEZING Albuterol/Ipratropium (Duoneb (Albuterol 2.5 Mg/Ipratropium 0.5 Mg)) 1 neb INH [id number] AWAKE NELLY Fluoxetine HCl (Prozac Cap*) 60 mg PO DAILY NE[facility] Fluticasone Propionate (Flonase Nasal [place] 50mcg*) 2 spray BOTH NARES DAILY NE[facility] Gabapentin (Neurontin Cap(*)) 300 mg PO BEDTIME NELLY Guaifenesin/Codeine Phosphate (Robitussin Ac 100mg-10mg*) 5 ml PO Q4H PRN Reason: COUGH Sodium Chloride (Ns 0.9% 1000 Ml*) 1,000 mls @ 125 mls/hr IV PER RATE NELLY Azithromycin 500 mg/ Sodium (Chloride) 250 mls @ 250 mls/hr IVPB Q24H NELLY Ceftriaxone Sodium 1,000 mg/ (Sodium Chloride) 50 mls @ 200 mls/hr IVPB Q24H NE[facility] Mometasone Furoate/Formoterol Fumar (Dulera 200/5 Mdi*) 2 puff INH BID NELLY Prednisone (Deltasone Tab*) 50 mg PO DAILY NELLY Vital Signs 03/10/17 03/10/17 03/10/17 16:07 19:16 19:23 Temperature 99.4 F Pulse Rate 88 87 Respiratory 14 20 Rate Blood Pressure 137/83 (mmHg) O2 Sat by Pulse 95 97 Oximetry 03/10/17 03/10/17 03/10/17 19:55 19:57 21:09 Temperature Pulse Rate 86 Respiratory 16 18 Rate Blood Pressure (mmHg) O2 Sat by Pulse 98 97 Oximetry 03/10/17 03/10/17 03/11/17 23:09 23:21 04:25 Temperature 98.0 F Pulse Rate 92 119 Respiratory 16 16 Rate Blood Pressure 134/74 (mmHg) O2 Sat by Pulse 94 94 Oximetry 03/11/17 03/11/17 03/11/17 04:49 05:08 07:36 Temperature 98.1 F 98.1 F Pulse Rate 103 119 88 Respiratory 24 28 16 Rate Blood Pressure 117/64 97/56 (mmHg) O2 Sat by Pulse 94 94 94 Oximetry 03/11/17 03/11/17 03/11/17 08:00 08:09 11:32 Temperature 97.9 F Pulse Rate 81 77 Respiratory 16 16 18 Rate Blood Pressure 121/72 (mmHg) O2 Sat by Pulse 96 97 Oximetry 03/11/17 11:36 Temperature Pulse Rate 75 Respiratory 16 Rate Blood Pressure (mmHg) O2 Sat by Pulse 98 Oximetry Oxygen Devices in Use Now: None Appearance: NAD, sitting up in bed Ears/Nose/Mouth/Throat: Mucous Membranes Moist Respiratory: Symmetrical Chest Expansion and Respiratory Effort, Clear to Auscultation - , diminished Cardiovascular: NL Sounds; No Murmurs; No JVD, RRR Abdominal: NL Sounds; No Tenderness; No Distention Extremities: No Edema Skin: - - [place] rash to back Neurological: Alert and Oriented x 3, NL Muscle Strength and Tone Lines/Tubes/Other Access: Clean, Dry and Intact Peripheral IV - site benign Nutrition: Taking PO's Result Diagrams: 03/11/17 06:29 03/10/17 00:40 Additional Lab and Data: Assess/Plan/Problems-Billing Assessment: Ms. Herr is a 22 yo female with PMH significant for asthma, migraines, and depression who presented to the emergency room with 1 week of progressive shortness of breath. - Patient Problems (1) Asthma exacerbation Code(s): J45.901 - UNSPECIFIED ASTHMA WITH (ACUTE) EXACERBATION SNOMED Code(s) : 288473767 Comment: - With hypoxia on admission - Continue nebs, steroids, abx (2) Pneumonia Code(s): J18.9 - PNEUMONIA, UNSPECIFIED ORGANISM SNOMED Code(s): 212115775 Comment: - Afebrile and leukocytosis (suspect secondary to steroids) - Urine for legionella and Strep pneumo negative - Sputum culture pending - Continue azithromycin and change to Augmentin (3) Hypoxia Code(s): R09.02 - HYPOXEMIA SNOMED Code(s): 180286711 Comment: - Improving - Suspect secondary to asthma exacerbation and PNA - CTA chest - No PE (4) UTI (urinary tract infection) Comment: - Urine culture with Staph saprophyticus - Asymptomatic - Started on Augmentin (5) Depression Code(s): F32.9 - MAJOR DEPRESSIVE DISORDER, SINGLE EPISODE, UNSPECIFIED SNOMED Code(s): 53952102 Comment: - Continue Prozac (6) Tinea versicolor Comment: - Continue selenium sulfide for 1 week (7) DVT prophylaxis Code(s): XXD7444 - SNOMED Code(s): 002984063 Comment: - Ambulation (8) Full code status Code(s): Z78.9 - OTHER SPECIFIED HEALTH STATUS SNOMED Code(s): 245784320 Status and Disposition: OBV. Stable for discharge to home today.
--- NOTE | 2017-03-12 20:14 | DS ---
CC: Ky Dominguez NP* DISCHARGE SUMMARY: DATE OF ADMISSION: 03/10/17 DATE OF DISCHARGE: 03/11/17 ATTENDING PHYSICIAN: Bianca Fna MD* (dictated by Cornelius Anthony NP). PRIMARY CARE PROVIDER: Ky Dominguez NP PRIMARY DIAGNOSES: 1. Asthma exacerbation. 2. Pneumonia. 3. Hypoxia, resolved. 4. Tinea versicolor. SECONDARY DIAGNOSES: 1. Asthma. 2. Depression. STUDIES WHILE IN THE HOSPITAL: 1. Chest x-ray on 03/10/17. Radiologist's impression, bilateral pneumonia, suggest followup. 2. Chest thoracic CTA on 03/10/17. Radiologist's impression, no CT evidence of pulmonary embolism, multifocal pneumonia, and tiny pleural effusions. DISCHARGE MEDICATIONS: New home medications: 1. Augmentin 875 mg oral twice daily for 5 days. 2. Azithromycin 250 mg oral daily for 4 days. 3. Prednisone 20 mg tablets, take 50 mg oral daily for 2 days, followed by 40 mg oral daily for 3 days, followed by 3 mg oral daily for 3 days, followed by 20 mg oral daily for 3 days, followed by 10 mg oral daily for 3 days and then stop. Continued home medications: 1. Gabapentin 300 mg oral daily at bedtime. 2. Fluticasone 2 sprays to both nares daily. 3. Prozac 60 mg oral daily. 4. Cetirizine 10 mg oral daily. 5. Advair Diskus 250/50 two puffs inhalation daily. 6. Albuterol 2.5 mg/3 mL 0.083% nebulizer, 2.5 mg inhalation every 4 hours as needed for shortness of breath or wheeze. 7. DuoNeb 2.5 mg/0.5 mg 1 neb inhalation every 4 hours as needed for shortness of breath or wheeze. HISTORY OF PRESENT ILLNESS/HOSPITAL COURSE: Ms. Herr is a 22-year-old female with past medical history significant for asthma, migraines, and depression. Asthma has been uncontrolled and worsening over the last several months. The patient reported progressive shortness of breath and wheezing especially over the last week and then over the last 2 days she had been needing to use her nebulizer approximately every 2 hours. The patient's breathing was so bad, she would use approximately half a nebulizer just to get out of bed to go to the bathroom and the other half of the nebulizer when she got back due to her severe shortness of breath. The patient denied any fever or chills. She has had some vomiting due to coughing fit. Patient reported the feeling of restricted breathing and pressure in her chest. She also reported intermittent swelling in her legs though that had resolved at the time of her presentation. The patient is a former smoker quitting 2 days ago when her shortness of breath became severe. Patient has been smoking approximately a pack a day over the last 6 months. Due to the patient's symptoms, she presented to the emergency room for further evaluation of her symptoms. While in the emergency room, the patient had labs that were significant for negative flu swab. Urinalysis negative for bacteria with 2+ RBC, 2+ WBC, and trace leukocyte esterase. Her white blood cell count was 9.9. The hospitalists were asked to evaluate the patient for admission. While in the hospital, the patient was treated for an acute asthma exacerbation with associated hypoxia. Patient was able to be weaned off of her oxygen during her stay. She was treated with Solu-Medrol initially and then transitioned to prednisone taper. Patient was requiring DuoNeb every 4 hours while awake. She had a CTA of her chest, ruled out pulmonary embolism. Patient also was found to have a right-sided pneumonia and she was placed on ceftriaxone and azithromycin. The patient was also found to have a probable tinea versicolor and was started on selenium sulfide 2.5% shampoo. During her stay, the patient's white blood cell count actually increased from 9.9 to 19.9. Patient was very adamant that she was feeling well. She has been afebrile. No longer requiring supplemental oxygen. It is suspected the part of the patient's bump in leukocytosis was related to her steroids. Ms. Herr is stable for discharge to home today. Vital signs are as follows: Temperature 97.9, heart rate is 77, respiratory rate 18, O2 sat 97% on room air , blood pressure 121/72. DISCHARGE PLAN: Ms. Herr will be discharged to home today. Activity as tolerated. Regular diet. As far as the patient's pneumonia, she has been continued on Augmentin 875 mg oral twice daily for 5 more days, in addition to azithromycin 250 mg oral daily for 4 more days. She has been placed on a prednisone taper 20 mg tablets. She has been instructed to take 50 mg oral daily for 2 days, followed by 40 mg oral daily for 3 days, followed by 30 mg oral daily for 3 days, followed by 20 mg oral daily for 3 days, followed by 10 mg oral daily for 3 days. The patient reports being almost out of her nebulizers. I have re- sent in refills on those for her. As far as the patient 's possible tinea versicolor, she has been started on selenium sulfide 2.5% shampoo, she has been asked to apply that for 10 minutes daily to her rash for a week. I recommend getting the patient in for a pulmonology consult to try to better control her asthma. Patient has been set up with the followup appointment with her primary care provider, ARGENTINA Garzon. She has an appointment on March 19 at 10:10 a.m. I recommend doing a follow up CBC to make sure that the patient's leukocytosis is resolving. She would also benefit from a followup chest x-ray to ensure that her pneumonia has resolved. Patient has been asked to return to the emergency room for any chest pain, shortness of breath. This is a summarized report of a complex medical history and hospital stay. For further details, please see the entire medical record. TIME SPENT: Time for this discharge was approximately 50 minutes, greater than half of that was spent with the patient and boyfriend, discussing discharge plans and instructions. CONDITION ON DISCHARGE: Stable. CORNELIUS ANTHONY NP [id number]/[facility] #: [id number] CANDY
== END 2017-03-11 14:40 | disposition home or self-care (01) ==
LOC: ED 22:28 → MED 03-10 02:29
PROVIDERS: ADMIT Hospitalist; ATTEND Internal Medicine
DX: J45.901 Unspecified asthma with (acute) exacerbation (principal); J18.9 Pneumonia, unspecified organism; R09.02 Hypoxemia; N39.0 Urinary tract infection, site not specified; Z72.0 Tobacco use; Z79.899 Other long term (current) drug therapy; F32.9 Major depressive disorder, single episode, unspecified; R05 Cough; J90 Pleural effusion, not elsewhere classified; R16.1 Splenomegaly, not elsewhere classified; B36.0 Pityriasis versicolor
CPT/HCPCS: 36415; 71020; 71275; 80053; 81003; 81015; 83605; 84484; 84702; 85025; 85379; 85610; 86140; 87086; 87088; 87502; 87899; 93005; 94640; 94760; 96365; 96366; 96367; 96375; 96376; 99291; A9270-GY; G0378; J0456; J0696; J2920; J2930; J7512; Q9967

== ENCOUNTER 2017-05-19 17:54 | Observation (INO) | payer MEDICAID, OTHER ==
[2017-05-19] MEDS ORDERED: predniSONE TAB* 20 MG PO ONE (18:55)
[2017-05-19] MEDS ORDERED: NS 0.9% 1000 ML* 1,000 ML IV ONE (18:59)
[2017-05-19] MEDS: Albuterol/Ipratropium NEB.SOL* Albuterol 2.5 MG/Ipratropium 0.5 MG 3 ML INH ONE ×2 (19:32→20:09)
--- NOTE | 2017-05-19 19:55 | RAD ---
INDICATION: Asthma, shortness of breath, upper respiratory infection. COMPARISON: Comparison is made with a prior chest x-ray study from March 10, 2017. TECHNIQUE: Dual-energy PA and lateral views of the chest were obtained. FINDINGS: The heart is within normal limits in size. Mediastinal and hilar contours appear within normal limits. There is a patchy infiltrate present in the right upper and middle lobes most consistent with pneumonia. The left lung appears clear. No pleural effusion is seen. IMPRESSION: PATCHY RIGHT UPPER AND MIDDLE LOBE INFILTRATES MOST CONSISTENT WITH PNEUMONIA.
[2017-05-19] MEDS ORDERED: Albuterol/Ipratropium NEB.SOL* Albuterol 2.5 MG/Ipratropium 0.5 MG 3 ML ONE (20:06)
[2017-05-19] MEDS ORDERED: Levofloxacin TAB* 250 MG PO ONE (20:17)
[2017-05-19] MEDS ORDERED: EPINEPHrine,Rac 2.25% NEB.SOL* 0.5 ML INH ONE (20:17)
[2017-05-19] MEDS ORDERED: NS 0.9% 1000 ML*IV.FLUID IV ONE (20:51)
[2017-05-19] MEDS ORDERED: Magnesium Sulfate 1 GM IV* 1 GM/100 ML BAG IV ONE (20:52)
[2017-05-19 21:30] LABS: ABS Basophils 0.1 10^3/ul (0-0.2); ABS Lymphocytes 2.7 10^3/ul (1.0-4.8); ABS Monocytes 0.5 10^3/ul (0-0.8); ABS Neutrophils 5.3 10^3/ul (1.5-7.7); ABS Nucleated RBC 0.01 10^3/ul; Eosinophil % 10.4 % (0-6); Hematocrit 37 % (35-47); Hemoglobin 12.7 g/dl (12.0-16.0); Lymphocyte % 28.4 % (25-47); Mean Corpuscular HGB Conc 34 g/dl (31-36); Mean Corpuscular Hemoglobin 30 pg (27-31); Mean Corpuscular Volume 88 fL (80-97); Mean Platelet Volume 8 um3 (7.4-10.4); Nucleated Red Blood Cells % 0.1; Platelet Count 243 10^3/ul (150-450); Red Blood Count 4.24 10^6/ul (4.0-5.4); Red Cell Distribution Width 14 % (10.5-15); White Blood Count 9.7 10^3/ul (3.5-10.8)
[2017-05-19 21:41] LABS: EGFR Non-African American 131.4 (>60)
--- NOTE | 2017-05-19 21:44 | ED ---
Kush Jung Gabriel, scribed for Rakan Jalloh MD on 05/19/17 at 1859 . Respiratory - HPI Summary HPI Summary: This patient is a 22 year old F presenting to [facility] with a chief complaint of SOB since 05/16/17. Patient denies fever. Patient has a history of asthma and has been hospitalized for it previously. She has been using a duoneb and albuterol inhaler at home with no relief. Previously admitted for similar, had pneumonia then. Ill in total almost 2wks now with upper respiratory sx including hoarse voice, nasal discharge and cough. Now deteriorated. - History of Current Complaint Chief Complaint: EDShortnessOfBreath Stated Complaint: DIFFICULTY BREATHING Time Seen by Provider: 05/19/17 18:54 Hx Obtained From: Patient Onset/Duration: Lasting Days - since 05/16/17, Still Present Timing: Constant Initial Severity: Moderate Current Severity: Moderate Pain Intensity: 0 Character: Wheezing Sputum Amount: None Aggravating Factor(s): Nothing Alleviating Factor(s): Nothing Associated Signs and Symptoms: Negative - fever, SOB - Allergy/Home Medications Allergies/Adverse Reactions: Allergies Allergy/AdvReac Type Severity Reaction Status Date / Time Reglan Allergy Severe Itching Uncoded 02/12/17 16:08 PMH/Surg Hx/FS Hx/Imm Hx Previously Healthy: No Endocrine/Hematology History: Denies: Hx Anticoagulant Therapy, Hx Diabetes, Hx Thyroid Disease Cardiovascular History: Denies: Hx Hypertension, Hx Pacemaker/ICD Respiratory History: Reports: Hx Asthma - Exercise, Hx Seasonal Allergies Denies: Hx Chronic Obstructive Pulmonary Disease (COPD) GI History: Denies: Hx Ulcer History: Denies: Hx Renal Disease Sensory History: Reports: Hx Contacts or Glasses Denies: Hx Hearing Aid Opthamlomology History: Reports: Hx Contacts or Glasses Neurological History: Reports: Other Neuro Impairments/Disorders - Vertigo Denies: Hx Dementia, Hx Seizures Psychiatric History: Reports: Hx Anxiety - on prozac, Hx Depression - on prozac , Other Psychiatric Issues/Disorders - ADD and migraines, takes percocet, Vyvanse and Adderal Denies: Hx Substance Abuse - Surgical History Surgery Procedure, Year, and Place: Right arm reset as a child under anesthesia. - Immunization History Date of Tetanus Vaccine: up to date per pt Immunizations Up to Date: Yes Infectious Disease History: No Infectious Disease History: Denies: Hx Clostridium Difficile, Hx Hepatitis, Hx Human Immunodeficiency Virus (HIV), Hx of Known/Suspected MRSA, Hx Shingles, Hx Tuberculosis, Hx Known/ Suspected VRE, Hx Known/Suspected VRSA, History Other Infectious Disease, Traveled Outside the [place] in Last 30 Days - Family History Known Family History: Positive: Respiratory Disease - asthma in brother - Social History Lives: With Family Alcohol Use: Weekly Substance Use Type: Reports: None Substance Use Comment - Amount & Last Used: HX MARIJUANA USE in past Smoking Status (MU): Former Smoker Type: Cigarettes Amount Used/How Often: 1 pk/wk Have You Smoked in the Last Year: Yes Review of Systems Negative: Fever Positive: Shortness Of Breath All Other Systems Reviewed And Are Negative: Yes Physical Exam - Summary Physical Exam Summary: Appearance: Well appearing, no pain distress Skin: warm, dry, reflects adequate perfusion Head/face: normal Eyes: EOMI, PATO ENT: normal Neck: supple, non-tender Respiratory: diffuse wheezes, decreased aeration Cardiovascular: RRR, pulses symmetrical Abdomen: non-tender, soft Bowel: present Musculoskeletal: normal, strength/ROM intact Neuro: normal, sensory motor intact, A&Ox3 Triage Information Reviewed: Yes Vital Signs On Initial Exam: Initial Vitals Temp Pulse Resp BP Pulse Ox 97.6 F 92 24 134/87 91 05/19/17 18:02 05/19/17 18:02 05/19/17 18:02 05/19/17 18:02 05/19/17 18:02 Vital Signs Reviewed: Yes - Neftali Coma Scale Coma Scale Total: 15 Diagnostics - Vital Signs Vital Signs Temp Pulse Resp BP Pulse Ox 05/19/17 18:02 97.6 F 92 24 134/87 91 - Laboratory Lab Results: Lab Results 05/19/17 Range/Units 21:07 WBC 9.7 (3.5-10.8) 10^3/ul RBC 4.24 (4.0-5.4) 10^6/ul Hgb 12.7 (12.0-16.0) g/dl Hct 37 (35-47) % MCV 88 (80-97) fL MCH 30 (27-31) pg MCHC 34 (31-36) g/dl RDW 14 (10.5-15) % Plt Count 243 (150-450) 10^3/ul MPV 8 (7.4-10.4) um3 Neut % (Auto) 55.2 (38-83) % Lymph % (Auto) 28.4 (25-47) % [place] % (Auto) 4.8 (1-9) % Eos % (Auto) 10.4 H (0-6) % Baso % (Auto) 1.2 (0-2) % Absolute Neuts (auto) 5.3 (1.5-7.7) 10^3/ul Absolute Lymphs (auto) 2.7 (1.0-4.8) 10^3/ul Absolute Monos (auto) 0.5 (0-0.8) 10^3/ul Absolute Eos (auto) 1.0 H (0-0.6) 10^3/ul Absolute Basos (auto) 0.1 (0-0.2) 10^3/ul Absolute Nucleated RBC 0.01 10^3/ul Nucleated RBC % 0.1 Result Diagrams: 05/19/17 21:07 Lab Statement: Any lab studies that have been ordered have been reviewed, and results considered in the medical decision making process. - Radiology CXR Radiology Interpretation Completed By: Radiologist - PATCHY RIGHT UPPER AND MIDDLE LOBE INFILTRATES MOST CONSISTENT WITH PNEUMONIA. ED physician has reviewed this radiology report. Re-Evaluation - Re-Evaluation First Eval Re-Evaluation Time: 20:12 Change: Improved - Patient has improved with treatment. Second Eval Re-Evaluation Time: 20:51 Change: Worse - She still has poor aeration but her wheezing is better. The patients rate of breathing is higher after walking and became hypoxic. Disposition - Course Course Of Treatment: Pt with asthma and diffuse wheezing/SOB. 91% on room air. 2 duoNebs followed by racemic epi helped objective exam. Pt was hoping to be discharged and so oral prednisone and levaquin given. Pt then walked only a short distance to rest room with significant difficulty, resulting increased WOB and hypoxia. She got pale and weak as well. Labs obtained including cx. Added IV hydration that she had refused earlier in the visit. Hospitalist contacted and will see pt in ED for admission. - Differential Dx - Cardiopulmonary Differential Diagnoses - Cardiopulmonary: Asthma, Pneumothorax, Other - flu/ viral syndrome - Diagnoses Provider Diagnoses: PNA (pneumonia), Asthma exacerbation, Hypoxia - Physician Notifications Discussed Care Of Patient With: Andriy Neal Time Discussed With Above Provider: 21:05 Instructed by Provider To: Admit As Inpatient - Critical Care Time Critical Care Time: 30-74 min - CCT is EXCLUSIVE of separately billable procedures Discharge - Discharge Plan Condition: Guarded Disposition: ADMITTED TO [facility] Prescriptions: Levofloxacin TAB* [Levaquin TAB*] 750 mg PO DAILY #6 tab predniSONE TAB* [Deltasone TAB*] 50 mg PO DAILY #4 tab Patient Education Materials: Asthma (ED), Community Acquired Pneumonia (ED) Referrals: Tequila Neal MD [Primary Care Provider] - Additional Instructions: Use breathing treatments every 4hrs until well. DuoNeb can be given every 6hrs. Drink plenty of fluids. Return with fever, increased difficulty of breathing, worse or other concerns as discussed. Call your doctor first thing in the morning for follow up appt. The documentation as recorded by the Kush whitman Gabriel accurately reflects the service I personally performed and the decisions made by me, Rakan Jalloh MD.
[2017-05-19] MEDS ORDERED: Acetaminophen TAB* 325 MG PO PRN (22:00)
[2017-05-19] MEDS ORDERED: Nicotine Inhaler* 10 MG AMP INH PRN (22:15)
[2017-05-19] MEDS ORDERED: Mouth Piece, Nicotine* 1 EACH CARTRIDGE INH ONE (23:00)
--- NOTE | 2017-05-19 23:18 | HP ---
CC: Dr. Tequila Neal * [facility] MEDICINE HISTORY AND PHYSICAL: DATE OF ADMISSION: 05/19/17 PRIMARY CARE PHYSICIAN: Dr. Tequila Neal. ATTENDING PHYSICIAN: Dr. Andriy Neal * (dictation provided by Jeanne Canales NP ). CHIEF COMPLAINT: Shortness of breath and cough. HISTORY OF PRESENT ILLNESS: Ms. Herr is a 22-year-old female with a past medical history of asthma, who is a continued smoker, and presents to the hospital today with concern for cough and shortness of breath. Ms. Herr states that she has been feeling unwell for about a week. She has had worsening cough, but most prominently, she has noted wheezing and shortness of breath. She has had no fever. She is a continued vrkc-h-moyv-a-day smoker, but has not smoked in the past couple of days because she has been feeling unwell. She has been "getting by" using her nebulizer q.2 hours as well as Robitussin and Ativan for anxiety related to her shortness of breath. She has tried to stay out of the hospital because it is the [place] and she has small children. Today, she "finally had enough" and decided to come to the emergency room for evaluation. In the emergency room, Ms. Herr had a chest x-ray that showed concern for a right middle and upper lobe infiltrates. She had a new requirement for 2 L nasal cannula. She was given racemic epinephrine, prednisone, and Levaquin. Despite this, when she ambulated in the emergency room, she became quite lightheaded and short of breath. Her labs are unremarkable. She has no leukocytosis. Her CRP is pending. PAST MEDICAL HISTORY: 1. Asthma. 2. Migraines. 3. Depression. MEDICATIONS: 1. Albuterol nebulizer p.r.n. 2. Duo nebulizer p.r.n. 3. Cetirizine 10 mg p.o. daily. 4. Fluticasone nasal spray, 2 sprays both nares daily. 5. Fluoxetine 60 mg p.o. daily. 6. Fluticasone with salmeterol 2 puffs inhaled daily that is 250/50 dose. 7. Gabapentin 300 mg p.o. at bedtime. 8. Latuda 40 mg p.o. daily. ALLERGIES: To REGLAN. FAMILY HISTORY: The patient reports her mother and father alive, but mother has hypertension, dad is a former smoker. She reports her brother has asthma and both her personal children have asthma and her boyfriend is also a smoker. SOCIAL HISTORY: She is a continued cfgn-t-prre-a-day smoker. She denies alcohol or drug use, though she does confirm some very intermittent marijuana use. Her boyfriend or her mom will be the healthcare proxy. Her boyfriend's name is Bharat. REVIEW OF SYSTEMS: A 14-point review of systems was completed with Ms. Herr and all that mentioned above were negative. PHYSICAL EXAMINATION GENERAL: Ms. Herr is sitting at the bed, she is speaking in complete sentences, is in no acute distress. VITAL SIGNS: Temperature 97.6, pulse rate 84, respiratory rate 16, oxygen saturation 96% on 2 L nasal cannula, and blood pressure 130/81. LUNGS: Diminished in the bases bilaterally. She has minimal wheezing noted in the upper harmon. She has reasonable aeration. There is no accessory muscle use. HEART: S1 and S2. No murmur, rub, or gallop, and regular. ABDOMEN: Soft and nontender. Bowel sounds positive x4. EXTREMITIES: No cyanosis or edema. NEURO: She is awake, she is oriented x3. She moves all extremities equally. There is no facial asymmetry or focal weakness. Extraocular movements intact. SKIN: Intact. DIAGNOSTIC STUDIES/LAB DATA: WBC 9.7, hemoglobin 12.7, hematocrit 37, platelet count 243. Sodium 138, potassium 3.4, chloride 107, serum bicarbonate 23, BUN 8, creatinine 0.57, glucose 103, lactic acid 1.1. CRP is pending. Chest x-ray is read as follows: "Patchy right upper and middle lobe infiltrates , most consistent with pneumonia." I will also note that the patient had a CTA of the chest and thorax on 03/10/17 during her last admission for pneumonia which is read as follows: "No CT evidence of pulmonary embolism, multifocal pneumonia, and tiny pleural effusions , splenomegaly." ASSESSMENT AND PLAN: Ms. Herr is a 22-year-old female with the past medical history of asthma and continued smoking as well as admission to our hospital in February of 2017 for pneumonia, who presents today to the hospital with shortness of breath, found to have pneumonia and likely asthma exacerbation. Despite treatment in the emergency room, she remains short of breath with limited exertion and has 2 L nasal cannula O2 requirement. Our plans are for observation in the hospital for the followin. Pneumonia with asthma exacerbation: The patient has acute hypoxic respiratory failure requiring 2 L nasal cannula in the ED. On room air, her O2 saturation drops to approximately 88%. She is breathing easily and able to speak in complete sentences on my examination. Plan to treat with Levaquin, Solu-Medrol, oxygen, Duo nebulizers, and guaifenesin. I strongly encouraged the patient to stop smoking and am providing nicotine replacement therapy which should be prescribed at discharge. I also strongly recommended that she follows up with her new primary care physician, Dr. Tequila Neal, for support with smoking cessation and also to ensure resolution of her pneumonia especially given her recent bout of pneumonia back in February of this year. 2. Tobacco abuse. Again, smoking cessation counseling and nicotine replacement therapy was offered. Patient could benefit from referral to [facility] for tobacco cessation as well. 3. Depression. Continue Latuda and Prozac. 4. Code status is full code. 5. Disposition: To the medical floor. TIME SPENT: Approximately 60 minutes was spent in the admission of this patient , more than half the time was spent with the patient at the bedside reviewing the events leading up to this hospitalization, performing the physical examination, and reviewing my plan of care. JEANNE CANALES NP [id number]/CPS #: [id number] CANDY
[2017-05-19] MEDS: methylPREDNISolone SOD 40 MG* 1 ML VIAL IV SCH (23:51)
[2017-05-19] MEDS: guaiFENesin LIQ* 100 MG/5 ML UDC PO PRN (23:51)
[2017-05-20] MEDS ORDERED: Gabapentin CAP(*) 300 MG PO ONE (00:25)
[2017-05-20 00:31] LABS: Urine Appearance Clear; Urine Blood Negative (Negative); Urine Color Yellow; Urine Ketones Trace (Negative); Urine Protein Negative (Negative); Urine Specific Gravity 1.018 (1.010-1.030); Urine Urobilinogen Negative (Negative)
[2017-05-20] MEDS: Saline NASAL SPRAY 0.65%* BTL BOTH NARES PRN ×2 (00:42→19:55)
[2017-05-20] MEDS: Albuterol/Ipratropium NEB.SOL* Albuterol 2.5 MG/Ipratropium 0.5 MG 3 ML INH PRN ×4 (00:50→20:02)
[2017-05-20] MEDS: NS 0.9% 1000 ML* 1,000 ML IV SCH ×2 (01:09→09:29)
[2017-05-20] MEDS: methylPREDNISolone SOD 40 MG* 1 ML VIAL IV SCH ×3 (05:40→21:48)
[2017-05-20] MEDS ORDERED: cefTRIAXone(*) 1 GM in NS 0.9% 50 ML* 50 ML IVPB SCH (06:00)
[2017-05-20] MEDS: Mometasone/Formoter 200/5 MDI INH SCH ×2 (07:50→20:03)
[2017-05-20] MEDS ORDERED: Potassium Chlor TAB* 20 MEQ TAB.ER PO ONE (08:22)
[2017-05-20] MEDS ORDERED: Influenza VAC *QUAD* 2017-18* 0.5 ML SYRINGE IM ONE (09:00)
[2017-05-20] MEDS ORDERED: Lurasidone(*) 20 MG TAB PO SCH ×2 (09:00→21:00)
[2017-05-20] MEDS: Levofloxacin TAB* 750 MG PO SCH (09:29)
[2017-05-20] MEDS: FLUoxetine CAP* 20 MG PO SCH (09:29)
--- NOTE | 2017-05-20 09:55 | PN ---
Subjective Date of Service: 05/20/17 Interval History: Reports that her breathing is improved today. Feels that she is unable to get rest in the hospital and would like to go home. Denies Nausea, vomiting or diarrhea or abd pain. Denies chest pain , denies increased shortness of breath. States i am able to walk without being very short of breath. Objective Active Medications: Acetaminophen (Tylenol Tab*) 650 mg PO Q6H PRN PRN Reason: PAIN Albuterol/Ipratropium (Duoneb (Albuterol 2.5 Mg/Ipratropium 0.5 Mg)) 1 neb INH Q2H PRN PRN Reason: SOB/WHEEZING Last Admin: 05/20/17 07:49 Dose: 1 neb Fluoxetine HCl (Prozac Cap*) 60 mg PO DAILY [facility] Last Admin: 05/20/17 09:29 Dose: 60 mg Gabapentin (Neurontin Cap(*)) 300 mg PO BEDTIME [facility] Guaifenesin (Robitussin*) 5 ml PO Q4H PRN PRN Reason: COUGH Last Admin: 05/19/17 23:51 Dose: 5 ml Sodium Chloride (Ns 0.9% 1000 Ml*) 1,000 mls @ 125 mls/hr IV PER RATE [facility] Stop: 05/21/17 08:38 Last Admin: 05/20/17 09:29 Dose: 125 mls/hr Influenza Virus Vaccine (Fluarix *Quad* *) 0.5 ml IM .ONCE ONE Stop: 05/21/17 09:01 Levofloxacin (Levaquin Tab*) 750 mg PO Q24H [facility] Last Admin: 05/20/17 09:29 Dose: 750 mg Lurasidone HCl (Latuda) 40 mg PO 2100 [facility] Methylprednisolone Sodium Succinate (Solu-Medrol 40 Mg) 40 mg IV Q8H [facility] Last Admin: 05/20/17 05:40 Dose: 40 mg Mometasone Furoate/Formoterol Fumar (Dulera 200/5 Mdi*) 2 puff INH BID [facility] Last Admin: 05/20/17 07:50 Dose: 2 puff Nicotine (Nicotine Inhaler*) 10 mg INH Q2H PRN PRN Reason: CRAVING Last Admin: 05/19/17 23:51 Dose: 10 mg Sodium Chloride (Sodium Chloride 0.65% Nasal [place]*) 1 spray BOTH NARES Q4H PRN PRN Reason: CONGESTION Last Admin: 05/20/17 00:42 Dose: 1 spray Vital Signs - 8 hr 05/20/17 05/20/17 05/20/17 03:15 05:34 07:45 Temperature 98.3 F Pulse Rate 92 88 Respiratory 16 18 18 Rate Blood Pressure 143/61 (mmHg) O2 Sat by Pulse 91 89 Oximetry 05/20/17 09:44 Temperature Pulse Rate Respiratory Rate Blood Pressure (mmHg) O2 Sat by Pulse 82 Oximetry Oxygen Devices in Use Now: Nasal Cannula Eyes: No Scleral Icterus Ears/Nose/Mouth/Throat: Clear Oropharnyx, Mucous Membranes Moist Neck: NL Appearance and Movements; NL JVP, Trachea Midline Respiratory: Symmetrical Chest Expansion and Respiratory Effort, - - diminshed T /O bilat/ Right with exp wheezing noted Cardiovascular: NL Sounds; No Murmurs; No JVD, RRR, No Edema Abdominal: NL Sounds; No Tenderness; No Distention Extremities: No Edema, No Clubbing, Cyanosis Skin: No Rash or Ulcers Neurological: Alert and Oriented x 3, NL Sensation, NL Gait Result Diagrams: 05/19/17 21:07 05/19/17 21:07 Additional Lab and Data: Lab Results 05/19/17 Range/Units 21:07 WBC 9.7 (3.5-10.8) 10^3/ul RBC 4.24 (4.0-5.4) 10^6/ul Hgb 12.7 (12.0-16.0) g/dl Hct 37 (35-47) % MCV 88 (80-97) fL MCH 30 (27-31) pg MCHC 34 (31-36) g/dl RDW 14 (10.5-15) % Plt Count 243 (150-450) 10^3/ul MPV 8 (7.4-10.4) um3 Neut % (Auto) 55.2 (38-83) % Lymph % (Auto) 28.4 (25-47) % [place] % (Auto) 4.8 (1-9) % Eos % (Auto) 10.4 H (0-6) % Baso % (Auto) 1.2 (0-2) % Absolute Neuts (auto) 5.3 (1.5-7.7) 10^3/ul Absolute Lymphs (auto) 2.7 (1.0-4.8) 10^3/ul Absolute Monos (auto) 0.5 (0-0.8) 10^3/ul Absolute Eos (auto) 1.0 H (0-0.6) 10^3/ul Absolute Basos (auto) 0.1 (0-0.2) 10^3/ul Absolute Nucleated RBC 0.01 10^3/ul Nucleated RBC % 0.1 Diagnostic Imaging: Patchy right upper and middle lobe infiltrates Assess/Plan/Problems-Billing Assessment: This is a 23 y.o. female that presented to the emergency room after an approx 1 week history of shortness of breath. Pt is a current smoker with a history of asthma. Chest x-ray shows right upper and middle lobe patchy pneumonia. - Patient Problems (1) Asthma exacerbation Current Visit: Yes Code(s): J45.901 - UNSPECIFIED ASTHMA WITH (ACUTE) EXACERBATION SNOMED Code(s): 387941255 Comment: Suspect this is related to underlying pneumonia and chronic lung insults related to smoking - With hypoxia on admission - Oxygen via nasal cannula to maintain sats in the 90's - Continue nebs, steroids, abx (2) Hypoxia Current Visit: Yes Code(s): R09.02 - HYPOXEMIA SNOMED Code(s): 944348973 Comment: - Improving - Suspect secondary to asthma exacerbation and PNA - Continues to require oxygen therapy to maintain oxygen saturations above 90% -walking o2 was 82-85% om room air, will continue oxygen for today. (3) Pneumonia Current Visit: Yes Code(s): J18.9 - PNEUMONIA, UNSPECIFIED ORGANISM SNOMED Code(s): 098246765 Comment: - Afebrile - Sputum culture ordered - Continue levaquin, steroids - Continue oxygen at 2 liters nasal cannula to maintain o2 sats in the 90's (4) Hypokalemia Current Visit: Yes Code(s): E87.6 - HYPOKALEMIA SNOMED Code(s): 81130495 Comment: Will give potassium po 40meq x 1 today Repeat BMP in AM Status and Disposition: Patient will be reevaluated tomorrow for oxygen needs. Possible discharge home tomorrow
[2017-05-20] MEDS ORDERED: Gabapentin CAP(*) 300 MG PO SCH (21:00)
[2017-05-20] MEDS: guaiFENesin LIQ* 100 MG/5 ML UDC PO PRN (23:11)
[2017-05-21] MEDS: methylPREDNISolone SOD 40 MG* 1 ML VIAL IV SCH (05:38)
[2017-05-21 06:33] LABS: ABS Basophils 0 10^3/ul (0-0.2); ABS Eosinophils 0 10^3/ul (0-0.6); ABS Lymphocytes 1.4 10^3/ul (1.0-4.8); ABS Monocytes 0.5 10^3/ul (0-0.8); ABS Neutrophils 15.4 10^3/ul (1.5-7.7); ABS Nucleated RBC 0.01 10^3/ul; Eosinophil % 0 % (0-6); Hematocrit 36 % (35-47); Lymphocyte % 8.2 % (25-47); Mean Corpuscular HGB Conc 33 g/dl (31-36); Mean Corpuscular Hemoglobin 29 pg (27-31); Mean Corpuscular Volume 88 fL (80-97); Mean Platelet Volume 8 um3 (7.4-10.4); Nucleated Red Blood Cells % 0; Platelet Count 249 10^3/ul (150-450); Red Blood Count 4.11 10^6/ul (4.0-5.4); Red Cell Distribution Width 14 % (10.5-15); White Blood Count 17.3 10^3/ul (3.5-10.8)
[2017-05-21 06:48] LABS: EGFR Non-African American 152.9 (>60)
[2017-05-21] MEDS: Mometasone/Formoter 200/5 MDI INH SCH (07:52)
[2017-05-21] MEDS: Albuterol/Ipratropium NEB.SOL* Albuterol 2.5 MG/Ipratropium 0.5 MG 3 ML INH PRN (08:59)
[2017-05-21] MEDS ORDERED: Influenza VAC *QUAD* 2017-18* 0.5 ML SYRINGE IM ONE (09:00)
[2017-05-21] MEDS: FLUoxetine CAP* 20 MG PO SCH (09:26)
[2017-05-21] MEDS: Levofloxacin TAB* 750 MG PO SCH (09:26)
--- NOTE | 2017-05-21 11:01 | PN ---
Subjective Date of Service: 05/21/17 Interval History: States that she feel better. States that breathing is improved. Able to ambulate without oxygen. Reports that she is starting to cough up some sputum. Denies fever. Denies nausea, vomiting or diarrhea. Denies ABD pain. Denies difficulty urinating. Does report minimal shortness of breath. Was frustrated this AM d/t not having nebulizer treatments. Family History: Unchanged from Admission Social History: Unchanged from Admission Past Medical History: Unchanged from Admission Objective Active Medications: Acetaminophen (Tylenol Tab*) 650 mg PO Q6H PRN PRN Reason: PAIN Last Admin: 05/20/17 13:00 Dose: 650 mg Albuterol/Ipratropium (Duoneb (Albuterol 2.5 Mg/Ipratropium 0.5 Mg)) 1 neb INH Q2H PRN PRN Reason: SOB/WHEEZING Last Admin: 05/21/17 08:59 Dose: 1 neb Fluoxetine HCl (Prozac Cap*) 60 mg PO DAILY [facility] Last Admin: 05/21/17 09:26 Dose: 60 mg Gabapentin (Neurontin Cap(*)) 300 mg PO BEDTIME [facility] Last Admin: 05/20/17 20:42 Dose: 300 mg Guaifenesin (Robitussin*) 5 ml PO Q4H PRN PRN Reason: COUGH Last Admin: 05/20/17 23:11 Dose: 5 ml Levofloxacin (Levaquin Tab*) 750 mg PO Q24H [facility] Last Admin: 05/21/17 09:26 Dose: 750 mg Lurasidone HCl (Latuda) 40 mg PO 2100 [facility] Last Admin: 05/20/17 20:42 Dose: 40 mg Methylprednisolone Sodium Succinate (Solu-Medrol 40 Mg) 40 mg IV Q8H [facility] Last Admin: 05/21/17 05:38 Dose: 40 mg Mometasone Furoate/Formoterol Fumar (Dulera 200/5 Mdi*) 2 puff INH BID [facility] Last Admin: 05/21/17 07:52 Dose: 2 puff Nicotine (Nicotine Inhaler*) 10 mg INH Q2H PRN PRN Reason: CRAVING Last Admin: 05/19/17 23:51 Dose: 10 mg Sodium Chloride (Sodium Chloride 0.65% Nasal [place]*) 1 spray BOTH NARES Q4H PRN PRN Reason: CONGESTION Last Admin: 05/20/17 19:55 Dose: 1 spray Vital Signs - 8 hr 05/21/17 05/21/17 05/21/17 03:33 07:20 07:53 Temperature 98.2 F Pulse Rate 62 Respiratory 15 Rate Blood Pressure 135/79 (mmHg) O2 Sat by Pulse 96 92 95 Oximetry 05/21/17 05/21/17 07:55 09:01 Temperature Pulse Rate 60 72 Respiratory 15 16 Rate Blood Pressure (mmHg) O2 Sat by Pulse 96 96 Oximetry Oxygen Devices in Use Now: None Eyes: No Scleral Icterus, PERRLA Ears/Nose/Mouth/Throat: Clear Oropharnyx, Mucous Membranes Moist Neck: NL Appearance and Movements; NL JVP, Trachea Midline Respiratory: Symmetrical Chest Expansion and Respiratory Effort, - - diminshed T /O bilat with scattered rhonchi noted Cardiovascular: NL Sounds; No Murmurs; No JVD, RRR, No Edema Abdominal: NL Sounds; No Tenderness; No Distention Result Diagrams: 05/21/17 06:13 05/21/17 06:13 Additional Lab and Data: Lab Results 05/19/17 Range/Units 21:07 WBC 9.7 (3.5-10.8) 10^3/ul RBC 4.24 (4.0-5.4) 10^6/ul Hgb 12.7 (12.0-16.0) g/dl Hct 37 (35-47) % MCV 88 (80-97) fL MCH 30 (27-31) pg MCHC 34 (31-36) g/dl RDW 14 (10.5-15) % Plt Count 243 (150-450) 10^3/ul MPV 8 (7.4-10.4) um3 Neut % (Auto) 55.2 (38-83) % Lymph % (Auto) 28.4 (25-47) % [place] % (Auto) 4.8 (1-9) % Eos % (Auto) 10.4 H (0-6) % Baso % (Auto) 1.2 (0-2) % Absolute Neuts (auto) 5.3 (1.5-7.7) 10^3/ul Absolute Lymphs (auto) 2.7 (1.0-4.8) 10^3/ul Absolute Monos (auto) 0.5 (0-0.8) 10^3/ul Absolute Eos (auto) 1.0 H (0-0.6) 10^3/ul Absolute Basos (auto) 0.1 (0-0.2) 10^3/ul Absolute Nucleated RBC 0.01 10^3/ul Nucleated RBC % 0.1 Diagnostic Imaging: Patchy right upper and middle lobe infiltrates Assess/Plan/Problems-Billing Assessment: This is a 23 y.o. female that presented to the emergency room after an approx 1 week history of shortness of breath. Pt is a current smoker with a history of asthma. Chest x-ray shows right upper and middle lobe patchy pneumonia. Feeling better today. off oxygen. will discharge home - Patient Problems (1) Asthma exacerbation Code(s): J45.901 - UNSPECIFIED ASTHMA WITH (ACUTE) EXACERBATION SNOMED Code(s) : 633853540 Comment: Suspect this is related to underlying pneumonia and chronic lung insults related to smoking - With hypoxia on admission - Oxygen via nasal cannula to maintain sats in the 90's - Continue nebs, steroids, abx (2) Hypoxia Code(s): R09.02 - HYPOXEMIA SNOMED Code(s): 473180051 Comment: - Improving - Suspect secondary to asthma exacerbation and PNA - oxygen is off, patient is able to maintain o2 saturations without oxygen. -walking o2 was 90-92% on room air. (3) Pneumonia Code(s): J18.9 - PNEUMONIA, UNSPECIFIED ORGANISM SNOMED Code(s): 866773410 Comment: Improved - will discharge home today - Afebrile - Sputum culture pending - Continue levaquin, steroids as outpatient Continue nebulizer at home as needed for shortness of breath - follow up with PMD on May 27, 2017 (4) Hypokalemia Code(s): E87.6 - HYPOKALEMIA SNOMED Code(s): 74306704 Comment: Will give potassium po 40meq x 1 today Repeat BMP in AM Status and Disposition: Discharge Home
[2017-05-21 11:17] VITALS: BP 122/68
--- NOTE | 2017-05-22 06:09 | DS ---
CC: Dr. Tequila Neal * DISCHARGE SUMMARY: DATE OF ADMISSION: 05/19/17 DATE OF DISCHARGE: 05/21/17 PROVIDER: Pratima Be NP ATTENDING PHYSICIAN WHILE IN THE HOSPITAL: Dr. Jaye Marr * (dictation by Pratima Be NP). PRIMARY CARE PROVIDER: Dr. Tequila Neal. PRIMARY DIAGNOSES: 1. Asthma exacerbation. 2. Pneumonia. SECONDARY DIAGNOSES: 1. Depression. 2. Migraines. STUDIES WHILE IN THE HOSPITAL: She had a chest x-ray done on 05/19/17. Radiologist's impression: Patchy right upper and middle lobe infiltrates most consistent with pneumonia. DISCHARGE MEDICATIONS: New home medications: 1. Levaquin 750 mg p.o. q.24 hours x5 days. 2. Prednisone 10 mg taper, days 1 through 3 she will take 50 mg, days 4 through 6 she will take 40 mg, days 7 through 9 she will take 30 mg, days 10 through 12 she will take 20 mg, and days in 13 through 15 she will take 10 mg daily. Continued home meds: 1. Albuterol nebulizer p.r.n. 2. DuoNebs p.r.n. 3. Cetirizine 10 mg p.o. daily. 4. Fluticasone nasal spray 2 sprays both nares daily. 5. Fluoxetine 60 mg p.o. daily. 6. Fluticasone with salmeterol 2 puffs inhaled daily 250/50 dose. 7. Gabapentin 300 mg p.o. at bedtime. 8. Latuda 40 mg p.o. daily. HISTORY OF PRESENT ILLNESS/HOSPITAL COURSE: Ms. Herr is a 22-year-old female with a past medical history of asthma, who is a continued smoker, who presented to the hospital with cough and shortness of breath. Ms. Herr states that she has been feeling unwell for a week prior to her presenting to the emergency room. She says that the cough had worsened and she had had increased wheezing and shortness of breath. She denied any fevers. She did continue to smoke about a half a pack a day. She had been using her nebulizer at home along with Robitussin and Ativan for the shortness of breath. While in the emergency room, Ms. Herr had a chest x-ray, which showed right upper and middle lobe infiltrates consistent with pneumonia. She has required 2 L of nasal cannula oxygen. She was given racemic epinephrine, prednisone, and Levaquin and despite the treatment when ambulating, she became lightheaded and short of breath, so she was admitted to the hospital. While in the hospital, the patient was monitored. Her oxygen level was monitored. She was hypoxic during the day yesterday and walking O2 sat was completed. Her O2 sat was 82% to 85% without oxygen. She was continued on Levaquin antibiotics and placed back on oxygen. She received nebulizer treatments and steroids. Her flu swabs were negative for both A and B. Urinalysis was also negative. She was hypokalemic on the with a potassium level of 3.4. Her potassium was replaced with 40 mEq of potassium and her repeat potassium on 05/21/17 was 4.3. She did not have an elevated white count on admission and on the and on the , she did have elevated white count of 17.3. I suspect that this is related to her steroids that she has received in the hospital, as she has been afebrile and has no further complaints. Ms. Herr was awake and alert this morning and asking to be discharge. A repeat walking O2 saturation was done off of oxygen. She had been off oxygen 40 minutes prior to the walking saturation and her oxygen saturation was 89% to 92 % on room air. Her shortness of breath is resolving. She is now able to tolerate being off of supplemental oxygen. Ms. Herr is stable for discharge home today and vital signs are as follows: Temperature was 98.2 orally, blood pressure 122/68, heart rate is 75, respirations were 18, and O2 sat on room air was 94% to 96%. DISCHARGE PLAN: Ms. Herr will be discharged back to home with her family. Activity as tolerated. She can resume a regular diet. For her pneumonia, she has been placed on Levaquin. She should take Levaquin 750 mg for the next 5 days. She also has been placed on a prednisone taper, which she will continue, days 1 through 3, she will take 50 mg daily; days 4 through 6, she will take 40 mg daily; days 7 through 9, she will take 30 mg daily; days 10 through 12, she will take 20 mg daily; and days 13 through 15, she will take 10 mg daily. The patient has an appointment with her primary care provider, Dr. Tequila Neal on 05/27/17 at 9 a.m. The patient was advised to return to the emergency room with any increased shortness of breath. This is a summarized report of Ms. Herr's hospital stay. For further details , please see the entire medical record. TIME SPENT: Time spent on this discharge was approximately 60 minutes, greater than half the time was spent with the patient discussing discharge plans and instructions. CONDITION AT DISCHARGE: Stable. PRATIMA BE, VICK [id number]/CPS #: [id number] CANDY
== END 2017-05-21 11:00 | disposition home or self-care (01) ==
LOC: ED 17:54 → INTOOBSV 22:25 → MED 22:25
PROVIDERS: ADMIT Internal Medicine; ATTEND Internal Medicine
DX: J45.901 Unspecified asthma with (acute) exacerbation (principal); J18.9 Pneumonia, unspecified organism; F17.210 Nicotine dependence, cigarettes, uncomplicated; F32.9 Major depressive disorder, single episode, unspecified; Z79.899 Other long term (current) drug therapy; R06.02 Shortness of breath; R09.02 Hypoxemia; G43.909 Migraine, unspecified, not intractable, without status migrainosus
CPT/HCPCS: 36415; 71020; 80048; 80053; 81003; 82550; 83605; 83735; 84702; 85025; 86140; 87040; 87502; 94640; 94760; 94761; 96365; 96375; 99285; A9270-GY; G0378; J2920; J3475; J7512

== ENCOUNTER 2017-08-25 16:12 | Emergency (ER) | payer OTHER ==
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
[2017-08-25 16:34] VITALS: BP 147/78
[2017-08-25] MEDS ORDERED: Levalbuterol 1.25MG/0.5ML NEB INH ONE (16:46)
[2017-08-25] MEDS ORDERED: methylPREDNISolone 125 MG* 2 ML VIAL IV ONE (16:46)
[2017-08-25] MEDS ORDERED: Albuterol 2.5 MG/3 ML NEB.SOL* (0.083%) ONE (16:52)
[2017-08-25] MEDS ORDERED: Albuterol 2.5 MG/3 ML NEB.SOL* (0.083%) INH ONE (16:53)
[2017-08-25] MEDS: Ipratropium 0.5MG/2.5ML NEB* 0.5 MG/2.5 ML NEB.SOLN INH ONE ×2 (17:01→17:02)
--- NOTE | 2017-08-25 18:11 | RAD ---
HISTORY: Chest tightness, wheezing, shortness of breath COMPARISONS: June 17, 2017 VIEWS: 4: Frontal dual-energy and lateral views of the chest. FINDINGS: CARDIOMEDIASTINAL SILHOUETTE: The cardiomediastinal silhouette is normal. ISREAL: The isreal are normal. PLEURA: The costophrenic angles are sharp. No pleural abnormalities are noted. LUNG PARENCHYMA: The lungs are clear. ABDOMEN: The upper abdomen is clear. There is no subphrenic gas. BONES AND SOFT TISSUES: No bone or soft tissue abnormalities are noted. OTHER: None. IMPRESSION: NO ACTIVE CARDIOPULMONARY DISEASE.
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
== END 2017-08-25 18:25 | disposition home or self-care (01) ==
LOC: UCEAST 16:12
DX: J45.901 Unspecified asthma with (acute) exacerbation (principal); G43.909 Migraine, unspecified, not intractable, without status migrainosus; Z87.442 Personal history of urinary calculi; F41.9 Anxiety disorder, unspecified; F31.9 Bipolar disorder, unspecified; F98.8 Other specified behavioral and emotional disorders with onset usually occurring in childhood and adolescence; Z88.8 Allergy status to other drugs, medicaments and biological substances; Z87.891 Personal history of nicotine dependence
CPT/HCPCS: 71046; 96374; 99213; A9270-GY; G0463; J2930

== ENCOUNTER → 2017-12-07 10:23 | Emergency (ER) | payer OTHER ==
[~2017-12-07 10:23] MED LIST: LORazepam TAB(*) 1 MG PO ONE; Mouth Piece, Nicotine* 1 EACH CARTRIDGE INH PRN; Nicotine Inhaler* 10 MG AMP INH PRN; hydrOXYzine HCL TAB* 50 MG PO ONE
--- NOTE | 2017-12-07 10:43 | ED ---
Psychiatric Complaint - HPI Summary HPI Summary: This is j carlos Kaufman documenting for attending Maikol Harrison MD. This patient is a 22 year old F presenting to [facility] accompanied by her boyfriend seeking a mental health evaluation for depression and SI that began 6 months ago. Pt reports that she has a long history of these episodes and PMHx of bipolar, anxiety, and borderline personality disorder. Pt denies current EtOH or drug use, injuries, and overdose. Pt has taken Lorazepam and Hydroxyzine in the past but is not currently taking either. - History Of Current Complaint Chief Complaint: EDMentalHealth Time Seen by Provider: 12/07/17 10:33 Hx Obtained From: Patient Hx Last Menstrual Period: today Onset/Duration: Gradual Onset, Lasting Weeks - 6 months Timing: Intermittent Episode Lasting - several months Severity Initially: Moderate Severity Currently: Moderate Character: Depressed - SI, Anxious - Allergies/Home Medications Allergies/Adverse Reactions: Allergies Allergy/AdvReac Type Severity Reaction Status Date / Time metoclopramide [From Reglan] Allergy Itching Verified 12/07/17 10:32 Home Medications: Home Medications Albuterol HFA INHALER* [Ventolin HFA Inhaler*] 1 puff INH Q6H PRN 12/07/17 [ History Confirmed 12/07/17] Amphetamine MIXED SALTS TAB* [Adderall TAB*] 30 mg PO QPM 12/07/17 [History Confirmed 12/07/17] Ascorbic Acid TAB* [Vitamin C TAB*] 500 mg PO QPM 12/07/17 [History Confirmed 12/07/17] Cholecalciferol TAB* [Vitamin D TAB*] 1,000 unit PO QAM 12/07/17 [History Confirmed 12/07/17] FLUoxetine CAP* [PROzac CAP*] 60 mg PO DAILY 12/07/17 [History Confirmed ] Fluticasone-Salmeterol 250-50* [Advair Diskus 250-50*] 1 puff INH BID 12/07/17 [ History Confirmed 12/07/17] Gabapentin CAP(*) [Neurontin 300 CAP(*)] 300 mg PO TID 12/07/17 [History Confirmed 12/07/17] Lisdexamfetamine (NF) [Vyvanse (NF)] 70 mg PO QAM 12/07/17 [History Confirmed ] Pantoprazole TAB (NF) [Protonix TAB (NF)] 20 mg PO QAM 12/07/17 [History Confirmed 12/07/17] ValACYclovir (*) [Valtrex 500 mg (*)] 500 mg PO QAM 12/07/17 [History Confirmed 12/07/17] PMH/Surg Hx/FS Hx/Imm Hx Endocrine/Hematology History: Denies: Hx Anticoagulant Therapy, Hx Diabetes, Hx Thyroid Disease Cardiovascular History: Denies: Hx Hypertension, Hx Pacemaker/ICD Respiratory History: Reports: Hx Asthma, Hx Pneumonia, Hx Seasonal Allergies Denies: Hx Chronic Obstructive Pulmonary Disease (COPD) GI History: Denies: Hx Ulcer History: Reports: Hx Kidney Stones Denies: Hx Renal Disease Sensory History: Reports: Hx Contacts or Glasses Denies: Hx Hearing Aid Opthamlomology History: Reports: Hx Contacts or Glasses Neurological History: Reports: Hx Migraine, Other Neuro Impairments/Disorders - Vertigo Denies: Hx Dementia, Hx Seizures Psychiatric History: Reports: Hx Anxiety - on prozac, Hx Depression - on prozac , Hx Bipolar Disorder, Other Psychiatric Issues/Disorders - ADD and migraines, takes percocet, Vyvanse and Adderal Denies: Hx Substance Abuse - Surgical History Surgery Procedure, Year, and Place: Right arm reset as a child under anesthesia. - Immunization History Date of Tetanus Vaccine: up to date per pt Infectious Disease History: No Infectious Disease History: Denies: Hx Clostridium Difficile, Hx Hepatitis, Hx Human Immunodeficiency Virus (HIV), Hx of Known/Suspected MRSA, Hx Shingles, Hx Tuberculosis, Hx Known/ Suspected VRE, Hx Known/Suspected VRSA, History Other Infectious Disease, Traveled Outside the [place] in Last 30 Days - Family History Known Family History: Positive: Respiratory Disease - asthma in brother - Social History Alcohol Use: Occasionally Substance Use Type: Reports: Marijuana Substance Use Comment - Amount & Last Used: HX MARIJUANA USE in past Hx Tobacco Use: Yes - quit 2 weeks ago Smoking Status (MU): Former Smoker Type: Cigarettes Amount Used/How Often: 1 pk/wk Have You Smoked in the Last Year: Yes Review of Systems Negative: Fever Positive: Anxious, Depressed All Other Systems Reviewed And Are Negative: Yes Physical Exam - Summary Physical Exam Summary: General: well-appearing, no pain distress Skin: warm, color reflects adequate perfusion, dry Head: normal Eyes: EOMI, PATO ENT: normal Neck: supple, nontender Respiratory: CTA, breath sounds present Cardiovascular: RRR Abdomen: soft, nontender Bowel: present Musculoskeletal: normal, strength/ROM intact Neurological: sensory/motor intact, A&O x3 Psychological: affect/mood appropriate Triage Information Reviewed: Yes Vital Signs On Initial Exam: Initial Vitals Temp Pulse Resp BP Pulse Ox 97.7 F 114 20 123/104 99 12/07/17 10:25 12/07/17 10:25 12/07/17 10:25 12/07/17 10:25 12/07/17 10:25 Vital Signs Reviewed: Yes Diagnostics - Vital Signs Vital Signs Temp Pulse Resp BP Pulse Ox 12/07/17 10:25 97.7 F 114 20 123/104 99 - Laboratory Result Diagrams: 12/07/17 10:51 12/07/17 10:51 Lab Statement: Any lab studies that have been ordered have been reviewed, and results considered in the medical decision making process. Course/Dx - Differential Dx/Clinical Impression Provider Diagnosis: Mental health problem Discharge - Sign-Out/Discharge Documenting (check all that apply): Patient Departure - Discharge Plan Condition: Stable Disposition: HOME Patient Education Materials: Mood Disorders (ED), Polysubstance Abuse (ED) Referrals: [facility] [Outside] (Please inquire about services for Rehab) [facility] [Outside] (Please schedule an appointment with psychiatrist to discuss medications as soon as possible) Shea Suazo NP [Primary Care Provider] - - Billing Disposition and Condition Condition: STABLE Disposition: Home
[2017-12-07 11:07] LABS: ABS Basophils 0.1 10^3/ul (0-0.2); ABS Eosinophils 0.7 10^3/ul (0-0.6); ABS Lymphocytes 2.5 10^3/ul (1.0-4.8); ABS Monocytes 0.5 10^3/ul (0-0.8); ABS Neutrophils 5.9 10^3/ul (1.5-7.7); ABS Nucleated RBC 0 10^3/ul; Eosinophil % 6.9 % (0-6); Hematocrit 42 % (35-47); Lymphocyte % 25.7 % (25-47); Mean Corpuscular HGB Conc 34 g/dl (31-36); Mean Corpuscular Hemoglobin 30 pg (27-31); Mean Corpuscular Volume 88 fL (80-97); Mean Platelet Volume 7.9 um3 (7.4-10.4); Nucleated Red Blood Cells % 0; Platelet Count 270 10^3/ul (150-450); Red Blood Count 4.74 10^6/ul (4.00-5.40); Red Cell Distribution Width 14 % (10.5-15); White Blood Count 9.7 10^3/ul (3.5-10.8)
[2017-12-07 11:09] LABS: Urine Appearance Cloudy; Urine Blood Negative (Negative); Urine Color Yellow; Urine Ketones Negative (Negative); Urine Protein Negative (Negative); Urine Specific Gravity 1.017 (1.010-1.030); Urine Urobilinogen Negative (Negative)
[2017-12-07 11:35] LABS: EGFR Non-African American 109.1 (>60)
[2017-12-07 20:30] VITALS: BP 128/91
== END | disposition home or self-care (01) ==
LOC: ED 10:23
DX: F39 Unspecified mood [affective] disorder (principal); F31.9 Bipolar disorder, unspecified; F41.9 Anxiety disorder, unspecified; F60.3 Borderline personality disorder; J45.909 Unspecified asthma, uncomplicated; G43.909 Migraine, unspecified, not intractable, without status migrainosus; Z88.8 Allergy status to other drugs, medicaments and biological substances; Z82.5 Family history of asthma and other chronic lower respiratory diseases; Z87.891 Personal history of nicotine dependence
CPT/HCPCS: 36415; 80053; 80307; 80320; 80329; 81003; 84443; 84702; 85025; 99284; A9270-GY; G0480

== ENCOUNTER 2018-03-24 08:49 | Inpatient (IN) | payer OTHER ==
[2018-03-24] MEDS ORDERED: Albuterol/Ipratropium NEB.SOL* Albuterol 2.5 MG/Ipratropium 0.5 MG 3 ML INH ONE ×2 (09:24→11:10)
[2018-03-24] MEDS ORDERED: NS 0.9% 1000 ML* 1,000 ML IV ONE (09:24)
[2018-03-24] MEDS ORDERED: methylPREDNISolone 125 MG* 2 ML VIAL IV ONE (09:24)
--- NOTE | 2018-03-24 09:47 | RAD ---
HISTORY: sob, cough COMPARISONS: August 25, 2017 VIEWS: 4: Frontal dual-energy and lateral views of the chest. FINDINGS: CARDIOMEDIASTINAL SILHOUETTE: The cardiomediastinal silhouette is normal. ISREAL: The isreal are normal. PLEURA: The costophrenic angles are sharp. No pleural abnormalities are noted. LUNG PARENCHYMA: The lungs are clear. ABDOMEN: The upper abdomen is clear. There is no subphrenic gas. BONES AND SOFT TISSUES: No bone or soft tissue abnormalities are noted. OTHER: None. IMPRESSION: NO ACTIVE CARDIOPULMONARY DISEASE.
[2018-03-24] MEDS ORDERED: LORazepam INJ* 2 MG/ML 1 ML VIAL IV PUSH ONE (09:49)
--- NOTE | 2018-03-24 09:49 | ED ---
Asthma - HPI Summary HPI Summary: Patient is a 23-year-old female who presents emergency department for increased cough and wheezing times several days. Has a history of asthma and is currently on Advair and uses a belies his at home when necessary. Patient states this is her fourth asthma exacerbation this year. Patient states she stopped smoking a couple weeks ago and she has had a more productive cough and wheeze symptoms. She denies fever, chills, abdominal pain, vomiting, diarrhea. Symptoms are moderate in severity. No current modifying factors. - History of Current Complaint Chief Complaint: EDShortnessOfBreath Stated Complaint: SOB Time Seen by Provider: 03/24/18 09:17 Hx Obtained From: Patient Hx Last Menstrual Period: today Pain Intensity: 0 - Allergy/Home Medications Allergies/Adverse Reactions: Allergies Allergy/AdvReac Type Severity Reaction Status Date / Time metoclopramide [From Reglan] Allergy Itching Verified 03/24/18 08:57 Home Medications: Home Medications Amphetamine MIXED SALT TAB* [Adderall TAB*] 20 mg PO DAILY 03/24/18 [History Confirmed 03/24/18] Fexofenadine (NF) [Tina 180 (NF)] 180 mg PO DAILY 03/24/18 [History Confirmed 03/24/18] Lisdexamfetamine (NF) [Vyvanse (NF)] 70 mg PO DAILY 03/24/18 [History Confirmed 03/24/18] [place] Carbonate ER (NF) [[place] Carbonate ER] 600 mg PO BID 03/24/18 [ History Confirmed 03/24/18] buPROPion SR TAB* [Wellbutrin SR TAB*] 200 mg PO DAILY 03/24/18 [History Confirmed 03/24/18] traZODone TAB* [Desyrel TAB*] 100 mg PO BEDTIME PRN 03/24/18 [History Confirmed 03/24/18] PMH/Surg Hx/FS Hx/Imm Hx Previously Healthy: Yes Endocrine/Hematology History: Denies: Hx Anticoagulant Therapy, Hx Diabetes, Hx Thyroid Disease Cardiovascular History: Denies: Hx Hypertension, Hx Pacemaker/ICD Respiratory History: Reports: Hx Asthma, Hx Pneumonia, Hx Seasonal Allergies Denies: Hx Chronic Obstructive Pulmonary Disease (COPD) GI History: Denies: Hx Ulcer History: Reports: Hx Kidney Stones Denies: Hx Renal Disease Sensory History: Reports: Hx Contacts or Glasses Denies: Hx Hearing Aid Opthamlomology History: Reports: Hx Contacts or Glasses Neurological History: Reports: Hx Migraine, Other Neuro Impairments/Disorders - Vertigo Denies: Hx Dementia, Hx Seizures Psychiatric History: Reports: Hx Anxiety - on prozac, Hx Eating Disorder - used to purge, Hx Depression - on prozac, Hx Bipolar Disorder, Hx of Violent Episodes Against Others, Other Psychiatric Issues/Disorders - ADD and migraines , takes percocet, Vyvanse and Adderal Denies: Hx Substance Abuse - Surgical History Surgery Procedure, Year, and Place: Right arm reset as a child under anesthesia. - Immunization History Date of Tetanus Vaccine: up to date per pt Infectious Disease History: No Infectious Disease History: Denies: Hx Clostridium Difficile, Hx Hepatitis, Hx Human Immunodeficiency Virus (HIV), Hx of Known/Suspected MRSA, Hx Shingles, Hx Tuberculosis, Hx Known/ Suspected VRE, Hx Known/Suspected VRSA, History Other Infectious Disease, Traveled Outside the in Last 30 Days - Family History Known Family History: Positive: Respiratory Disease - asthma in brother - Social History Occupation: Unemployed Alcohol Use: Occasionally Substance Use Type: Reports: Marijuana Substance Use Comment - Amount & Last Used: HX MARIJUANA USE in past Hx Tobacco Use: Yes - quit 2 weeks ago Smoking Status (MU): Former Smoker Type: Cigarettes Amount Used/How Often: 1 pk/wk Have You Smoked in the Last Year: Yes Review of Systems Constitutional: Negative Negative: Fever, Chills Eyes: Negative ENT: Negative Cardiovascular: Negative Positive: Shortness Of Breath, Cough Gastrointestinal: Negative Genitourinary: Negative Musculoskeletal: Negative Skin: Negative Neurological: Negative All Other Systems Reviewed And Are Negative: Yes Physical Exam Triage Information Reviewed: Yes Vital Signs On Initial Exam: Initial Vitals Temp Pulse Resp BP Pulse Ox 98.1 F 108 18 123/79 91 03/24/18 08:54 03/24/18 08:54 03/24/18 08:54 03/24/18 08:54 03/24/18 08:54 Vital Signs Reviewed: Yes Appearance: Positive: No Pain Distress - Pt. sitting up in bed wearin o2 mask. Speaking in full sentences but appears anxious. Skin: Positive: Warm, Dry Head/Face: Positive: Normal Head/Face Inspection Eyes: Positive: Normal, EOMI Neck: Positive: Supple Respiratory/Lung Sounds: Positive: Other - Diffuse inspiratory expiratory wheeze throughout. No accessory muscle use. No stridor. Cardiovascular: Positive: Tachycardia Neurological: Positive: Normal, CN Intact II-III Psychiatric: Positive: Affect/Mood Appropriate Diagnostics - Vital Signs Vital Signs Temp Pulse Resp BP Pulse Ox 03/24/18 09:38 100 32 95 03/24/18 08:54 98.1 F 108 18 123/79 91 - Laboratory Result Diagrams: 03/24/18 09:47 03/24/18 09:47 Lab Statement: Any lab studies that have been ordered have been reviewed, and results considered in the medical decision making process. Asthma Course/Dx - Course Course Of Treatment: Pt. presenting for asthma exacerbation. She is in mild respiratory distress. Her O2 saturation is on the low 90s on 2 L face mask. Was started on DuoNeb given IV Solu-Medrol and fluids. Labs and chest x-ray ordered. 1110: Patient reexamined. She states she is feeling that her. On re- auscultation she still has wheezing throughout which is slightly improved. We' ll give another DuoNeb treatment. Blood work is unremarkable including negative d-dimer. Chest x-ray is negative for acute findings, reading per radiology. Negative influenza. On re-exam patient still wheezing, she was given IV magnesium. Attempted to ambulate and she became very short of breath. Patient is now satting in the low 90s on 3 L and is fairly uncomfortable. Hospitalist was consulted for admission. I spoke with Dr. Frost and pt. has been accepted to her service. - Diagnoses Differential Diagnosis/HQI/PQRI: Positive: Airway Obstruction, Anaphylaxis, Acute Asthma, Bronchitis, Pneumonia, Pulmonary Embolism, Reactive Airway Disease Provider Diagnoses: Asthma exacerbation Discharge - Sign-Out/Discharge Documenting (check all that apply): Patient Departure - Discharge Plan Condition: Stable Disposition: ADMITTED TO [facility] - Billing Disposition and Condition Condition: STABLE Disposition: Admitted to [facility]
[2018-03-24 09:57] LABS: ABS Basophils 0.1 10^3/ul (0-0.2); ABS Eosinophils 0.6 10^3/ul (0-0.6); ABS Lymphocytes 1.5 10^3/ul (1.0-4.8); ABS Monocytes 0.6 10^3/ul (0-0.8); ABS Neutrophils 9.2 10^3/ul (1.5-7.7); ABS Nucleated RBC 0 10^3/ul; Eosinophil % 5.4 % (0-6); Hematocrit 39 % (35-47); Hemoglobin 12.7 g/dl (12.0-16.0); Lymphocyte % 12.3 % (25-47); Mean Corpuscular HGB Conc 33 g/dl (31-36); Mean Corpuscular Hemoglobin 30 pg (27-31); Mean Corpuscular Volume 90 fL (80-97); Mean Platelet Volume 6.9 um3 (7.4-10.4); Nucleated Red Blood Cells % 0; Platelet Count 292 10^3/ul (150-450); Red Blood Count 4.26 10^6/ul (4.00-5.40); Red Cell Distribution Width 14 % (10.5-15); White Blood Count 11.9 10^3/ul (3.5-10.8)
[2018-03-24 10:30] LABS: EGFR Non-African American 106.3 (>60)
[2018-03-24] MEDS ORDERED: Magnesium Sulfate 2 GM IV* 2 GM/50 ML BAG IVPB ONE (12:19)
[2018-03-24] MEDS ORDERED: cefTRIAXone(*) 1 GM in NS 0.9% 50 ML* 50 ML IVPB ONE (14:23)
[2018-03-24] MEDS ORDERED: Azithromycin IV(*) 500 MG in NS 0.9% 250 ML* 250 ML IVPB ONE (14:24)
[2018-03-24] MEDS ORDERED: Albuterol 2.5 MG/3 ML NEB.SOL* (0.083%) INH PRN (14:25)
[2018-03-24] MEDS: methylPREDNISolone SOD 40 MG* 1 ML VIAL IV SCH (15:54)
[2018-03-24] MEDS: Albuterol 2.5 MG/3 ML NEB.SOL* (0.083%) INH SCH ×2 (16:05→21:37)
[2018-03-24] MEDS: Azithromycin IV(*) 500 MG in NS 0.9% 250 ML* 250 ML IVPB SCH (16:11)
[2018-03-24] MEDS ORDERED: Albuterol HFA INHALER* 8 gm MDI INH PRN (16:16)
[2018-03-24] MEDS ORDERED: Nicotine GUM* 2 MG PO PRN (16:35)
[2018-03-24] MEDS: CMCS Lithium Carbonate ER (NF) 300 MG TAB.ER PO SCH (20:58)
[2018-03-24] MEDS: LORazepam TAB(*) 1 MG PO PRN (20:59)
[2018-03-24] MEDS: Gabapentin CAP(*) 300 MG PO SCH (20:59)
[2018-03-24] MEDS: traZODone TAB* 100 MG PO PRN (20:59)
[2018-03-24] MEDS: Heparin VIAL(*) 5000 UNITS/ML VIAL (FIVE THOUSAND) SUBCUT SCH (21:00)
[2018-03-24] MEDS: Mometasone/Formoter 200/5 MDI INH SCH (21:37)
--- NOTE | 2018-03-24 21:50 | HP ---
CC: Shea Suazo NP * HISTORY AND PHYSICAL: DATE OF ADMISSION: 03/24/18 TIME OF EVALUATION: 4 p.m. PRIMARY CARE PROVIDER: Shea Suazo NP, at [facility]. CHIEF COMPLAINT: Shortness of breath. HISTORY OF PRESENT ILLNESS: Ms. Herr is a 23-year-old lady with a past medical history of asthma, migraines, depression, obesity with a BMI of 39, tobacco abuse, who presents to the emergency room with complaints of shortness of breath. She states that she quit smoking a couple weeks ago and she was actually feeling better, but yesterday morning she woke up with shortness of breath, dry cough that progressed during the day. At night, she did not have the means to come to the emergency room, so she had albuterol nebulizers every hour so she could breathe better and today she came to the emergency room. She denies fever, chills. There are no sick contacts. No chest pain, palpitations, or other complaints. PAST MEDICAL HISTORY: 1. Asthma. The patient was admitted 3 times last year, was never intubated, does not know her best peak flow. 2. Migraines. 3. Depression. 4. Obesity with a BMI of 39. MEDICATION LIST: 1. Albuterol HFA 1 puff inhaled q.6 hours p.r.n. shortness of breath. 2. Adderall 20 mg p.o. daily. 3. Bupropion SR 200 mg p.o. daily. 4. Fexofenadine 180 mg p.o. daily. 5. Advair Diskus 250/50 one puff inhaled b.i.d. 6. Gabapentin 300 mg p.o. t.i.d. 7. Vyvanse 70 mg p.o. daily. 8. [place] carbonate ER 600 mg p.o. b.i.d. 9. Pantoprazole 20 mg p.o. daily. 10. Trazodone 100 mg p.o. at bedtime as needed for insomnia. 11. Valtrex 500 mg p.o. daily. ALLERGIES: To METOCLOPRAMIDE. FAMILY HISTORY: Mother has hypertension, brother has asthma, and her kids have asthma too. SOCIAL HISTORY: She was a smoker half-a-pack a day and quit a couple weeks ago. No history of alcohol or drug use. Surrogate decision maker is her significant other, Bharat Danielle, phone number is [phone]. REVIEW OF SYSTEMS: A 14-point review of systems was performed and all the pertinent negative and positive findings are in the HPI. PHYSICAL EXAMINATION GENERAL: The patient is a pleasant, young lady, sitting up in the bed, in no acute distress. VITAL SIGNS: Temperature 98.4, heart rate is 104, respiratory rate is 22, oxygen saturation is 94% on 4 L nasal cannula, blood pressure is 145/70. CHEST: Breath sounds present bilaterally with diffuse wheezing and rhonchi bilaterally. CVS: Normal S1, S2. Regular rate and rhythm. ABDOMEN: Obese. Bowel sounds are present. EXTREMITIES: No edema. NEURO: She is alert and oriented x3. Able to move all 4 extremities. DIAGNOSTIC STUDIES/LAB DATA: The patient had a CBC that showed WBC of 11.9, hemoglobin of 12.7, hematocrit of 39, platelets of 292 with 75% neutrophils. D - dimer is 220. Chemistry showed a sodium of 140, potassium of 4.2, chloride of 110, bicarb of 25, BUN of 5, creatinine of 0.6, glucose of 105, calcium of 9. LFTs are normal. HCG is negative. Influenza rapid test was negative. Chest x-ray showed no active cardiopulmonary disease. ASSESSMENT AND PLAN: Ms. Herr is a 23-year-old lady with past medical history of asthma, migraines, depression, obesity with a BMI of 39, tobacco abuse, who presents to the emergency room with complaints of shortness of breath , found to have acute asthma exacerbation secondary to bronchitis. 1. Acute asthma exacerbation secondary to bronchitis. The patient will be admitted as observation to the medical floor and she will be started on ceftriaxone and Zithromax, continued on steroids and bronchodilators. We are going to check peak flow pre and post treatment. 2. Tobacco abuse. The patient states that she quit recently, but still has some cravings and she uses nicotine gum at home and this will be offered while in the hospital. 3. Depression. We will continue Adderall, bupropion, Vyvanse. 4. DVT prophylaxis: The patient has a score of 2 on the DVT Prophylaxis Risk Assessment Guide and she will be started on subcutaneous heparin. 5. Code status is full. TIME SPENT: Approximately 45 minutes was spent with the patient's interview, medical records review, physical examination to complete this admission, more than half of this time was spent [id number] with the patient and coordination of care. [id number]/[facility] #: [id number] CANDY
[2018-03-25] MEDS: Albuterol/Ipratropium NEB.SOL* Albuterol 2.5 MG/Ipratropium 0.5 MG 3 ML INH SCH ×6 (00:27→20:41)
[2018-03-25] MEDS: methylPREDNISolone SOD 40 MG* 1 ML VIAL IV SCH ×2 (05:13→16:59)
[2018-03-25] MEDS: Gabapentin CAP(*) 300 MG PO SCH ×3 (07:19→21:24)
[2018-03-25] MEDS: CMCS Lithium Carbonate ER (NF) 300 MG TAB.ER PO SCH ×2 (07:20→21:25)
[2018-03-25] MEDS: buPROPion SR TAB.SR* 100 MG PO SCH (07:20)
[2018-03-25] MEDS: Cetirizine* 10 MG TAB PO SCH (07:20)
[2018-03-25] MEDS: Amphetamine MIXED SALT TAB* 10 MG TAB PO SCH (07:21)
[2018-03-25] MEDS: Heparin VIAL(*) 5000 UNITS/ML VIAL (FIVE THOUSAND) SUBCUT SCH ×3 (07:25→21:32)
[2018-03-25] MEDS: ValACYclovir (*) 500 MG TAB PO SCH (07:29)
[2018-03-25] MEDS: Mometasone/Formoter 200/5 MDI INH SCH ×2 (07:44→19:57)
[2018-03-25] MEDS: LISDEXAMFETAMINE 10 MG PO SCH (08:57)
[2018-03-25] MEDS ORDERED: Albuterol/Ipratropium NEB.SOL* Albuterol 2.5 MG/Ipratropium 0.5 MG 3 ML INH SCH (09:00)
[2018-03-25] MEDS ORDERED: Pantoprazole TAB (NF) 20 MG TAB PO SCH (09:00)
--- NOTE | 2018-03-25 13:35 | PN ---
Subjective Date of Service: 03/25/18 Interval History: HOSPITALIST PROGRESS NOTE Patient seen and examined at bedside. Care reviewed and d/w Heather Alfaro RN. She feels a little better today, but still dyspneic. Received a nebulizer treatment a couple hours ago and already feels her chest is tight again. Dry cough persists. Family History: Unchanged from Admission Social History: Unchanged from Admission Past Medical History: Unchanged from Admission Objective Active Medications: Albuterol (Ventolin 2.5 Mg/3 Ml Neb.Rajwinder*) 2.5 mg INH Q4H PRN PRN Reason: SOB/WHEEZING Last Admin: 03/24/18 16:05 Dose: 2.5 mg Albuterol (Ventolin Hfa Inhaler*) 2 puff INH Q4H PRN PRN Reason: SOB/WHEEZING Albuterol/Ipratropium (Duoneb (Albuterol 2.5 Mg/Ipratropium 0.5 Mg)) 1 neb INH [id number] AWAKE [facility] Last Admin: 03/25/18 11:19 Dose: 1 neb Amphetamine/Dextroamphetamine (Adderall Tab*) 20 mg PO DAILY [facility] Last Admin: 03/25/18 07:21 Dose: 20 mg Bupropion HCl (Wellbutrin Sr Tab*) 200 mg PO DAILY [facility] Last Admin: 03/25/18 07:20 Dose: 200 mg Cetirizine HCl (Zyrtec*) 10 mg PO DAILY [facility]; Protocol Last Admin: 03/25/18 07:20 Dose: 10 mg Gabapentin (Neurontin Cap(*)) 300 mg PO TID [facility] Last Admin: 03/25/18 12:41 Dose: 300 mg Heparin Sodium (Porcine) (Heparin Vial(*)) 5,000 units SUBCUT Q8HR [facility] Last Admin: 03/25/18 12:55 Dose: Not Given Ceftriaxone Sodium 1 gm/ (Sodium Chloride) 50 mls @ 200 mls/hr IVPB Q24H [facility] Azithromycin 500 mg/ Sodium (Chloride) 250 mls @ 250 mls/hr IVPB Q24H [facility] Last Admin: 03/24/18 16:11 Dose: 250 mls/hr Lisdexamfetamine Dimesylate (Vyvanse(Nf)) 70 mg PO DAILY [facility] Last Admin: 03/25/18 08:57 Dose: 70 mg [place] Carbonate ([place] Carbonate Er (Nf)) 600 mg PO BID [facility]; Protocol Last Admin: 03/25/18 07:20 Dose: 600 mg Lorazepam (Ativan Tab(*)) 1 mg PO Q6H PRN PRN Reason: ANXIETY Last Admin: 03/24/18 20:59 Dose: 1 mg Methylprednisolone Sodium Succinate (Solu-Medrol 40 Mg) 40 mg IV Q12H [facility] Last Admin: 03/25/18 05:13 Dose: 40 mg Mometasone Furoate/Formoterol Fumar (Dulera 200/5 Mdi*) 2 puff INH BID [facility] Last Admin: 03/25/18 07:44 Dose: 2 puff Nicotine Polacrilex (Nicotine Gum*) 2 mg PO Q2H PRN PRN Reason: CRAVING Pantoprazole Sodium (Protonix Tab (Nf)) 20 mg PO QAM [facility] Last Admin: 03/25/18 07:29 Dose: Not Given Trazodone HCl (Desyrel Tab*) 100 mg PO BEDTIME PRN PRN Reason: SLEEP Last Admin: 03/24/18 20:59 Dose: 100 mg Valacyclovir HCl (Valtrex 500 Mg (*)) 500 mg PO QAM [facility]; Protocol Last Admin: 03/25/18 07:29 Dose: Not Given Vital Signs - 8 hr 03/25/18 03/25/18 03/25/18 07:15 07:19 07:39 Temperature Pulse Rate 68 87 Respiratory 18 18 18 Rate Blood Pressure 114/72 (mmHg) O2 Sat by Pulse 97 Oximetry 03/25/18 03/25/18 03/25/18 07:46 07:57 08:59 Temperature 97.8 F Pulse Rate 93 Respiratory 18 17 18 Rate Blood Pressure 108/67 (mmHg) O2 Sat by Pulse 95 Oximetry 03/25/18 03/25/18 03/25/18 11:21 11:53 11:55 Temperature 98.0 F Pulse Rate 114 86 Respiratory 18 18 Rate Blood Pressure 130/65 (mmHg) O2 Sat by Pulse 96 96 Oximetry 03/25/18 03/25/18 03/25/18 12:10 12:25 12:41 Temperature Pulse Rate Respiratory 16 16 Rate Blood Pressure (mmHg) O2 Sat by Pulse 97 95 Oximetry Oxygen Devices in Use Now: Nasal Cannula - 3 liters Appearance: Young obese lady lying in bed in NAD Eyes: No Scleral Icterus Ears/Nose/Mouth/Throat: Mucous Membranes Moist Neck: Trachea Midline Respiratory: Symmetrical Chest Expansion and Respiratory Effort, - - BS+ bilaterally with diffuse wheezing and rhonchi Cardiovascular: RRR - Normal S1 and S2 Neurological: Alert and Oriented x 3, NL Muscle Strength and Tone Result Diagrams: 03/24/18 09:47 03/24/18 09:47 Assess/Plan/Problems-Billing Assessment: Mrs Herr is a 23yo F with PMH of obesity with BMI 39, migraines, depression, asthma, tobacco abuse, who presented to ED with c/o dyspnea, found to have asthma exacerbation secondary to bronchitis. - Patient Problems (1) Asthma exacerbation Comment: - Improving slowly. - Continue Ceftriaxone, Zithromax, steroids, and bronchodilators. - Peak flow around 240 - continue to monitor. (2) Tobacco abuse Comment: - States she quit recently, and uses Nicotine gum for cravings. Will continue while in the hospital. (3) Depression Comment: - Continue Bupropion, Vyvanse, and Adderall. (4) DVT prophylaxis Comment: - SQ heparin. (5) Full code status Status and Disposition: Observation
[2018-03-25] MEDS ORDERED: CMC:Pantoprazole TAB (NF) 40 MG TAB PO SCH (15:00)
[2018-03-25] MEDS ORDERED: cefTRIAXone(*) 1 GM in NS 0.9% 50 ML* 50 ML IVPB SCH (15:00)
[2018-03-25] MEDS: Azithromycin IV(*) 500 MG in NS 0.9% 250 ML* 250 ML IVPB SCH (15:39)
[2018-03-25] MEDS: CMC:Pantoprazole TAB (NF) 40 MG TAB PO SCH (15:59)
[2018-03-25] MEDS: LORazepam TAB(*) 1 MG PO PRN (21:25)
[2018-03-25] MEDS: traZODone TAB* 100 MG PO PRN (21:25)
[2018-03-26] MEDS: Albuterol/Ipratropium NEB.SOL* Albuterol 2.5 MG/Ipratropium 0.5 MG 3 ML INH SCH ×3 (01:03→07:21)
[2018-03-26] MEDS: Heparin VIAL(*) 5000 UNITS/ML VIAL (FIVE THOUSAND) SUBCUT SCH ×2 (05:39→12:57)
[2018-03-26] MEDS: methylPREDNISolone SOD 40 MG* 1 ML VIAL IV SCH (05:39)
[2018-03-26] MEDS: Mometasone/Formoter 200/5 MDI INH SCH (07:21)
[2018-03-26] MEDS ORDERED: Albuterol/Ipratropium NEB.SOL* Albuterol 2.5 MG/Ipratropium 0.5 MG 3 ML INH PRN (09:15)
--- NOTE | 2018-03-26 09:19 | PN ---
Subjective Date of Service: 03/26/18 Interval History: Feels like "mucous is breaking up in lungs" making it easier to breath Remains wheezy but better No SOB Family History: Unchanged from Admission Social History: Unchanged from Admission Past Medical History: Unchanged from Admission Objective Active Medications: Albuterol (Ventolin 2.5 Mg/3 Ml Neb.Rajwinder*) 2.5 mg INH Q4H PRN PRN Reason: SOB/WHEEZING Last Admin: 03/24/18 16:05 Dose: 2.5 mg Albuterol (Ventolin Hfa Inhaler*) 2 puff INH Q4H PRN PRN Reason: SOB/WHEEZING Albuterol/Ipratropium (Duoneb (Albuterol 2.5 Mg/Ipratropium 0.5 Mg)) 1 neb INH [id number] AWAKE [facility] Amphetamine/Dextroamphetamine (Adderall Tab*) 20 mg PO DAILY [facility] Last Admin: 03/25/18 07:21 Dose: 20 mg Bupropion HCl (Wellbutrin Sr Tab*) 200 mg PO DAILY [facility] Last Admin: 03/25/18 07:20 Dose: 200 mg Cetirizine HCl (Zyrtec*) 10 mg PO DAILY [facility]; Protocol Last Admin: 03/25/18 07:20 Dose: 10 mg Gabapentin (Neurontin Cap(*)) 300 mg PO TID [facility] Last Admin: 03/25/18 21:24 Dose: 300 mg Heparin Sodium (Porcine) (Heparin Vial(*)) 5,000 units SUBCUT Q8HR [facility] Last Admin: 03/26/18 05:39 Dose: Not Given Ceftriaxone Sodium 1 gm/ (Sodium Chloride) 50 mls @ 200 mls/hr IVPB Q24H [facility] Last Admin: 03/25/18 15:03 Dose: 200 mls/hr Azithromycin 500 mg/ Sodium (Chloride) 250 mls @ 250 mls/hr IVPB Q24H [facility] Last Admin: 03/25/18 15:39 Dose: 250 mls/hr Lisdexamfetamine Dimesylate (Vyvanse(Nf)) 70 mg PO DAILY [facility] Last Admin: 03/25/18 08:57 Dose: 70 mg Morenci Carbonate (Morenci Carbonate Er (Nf)) 600 mg PO BID [facility]; Protocol Last Admin: 03/25/18 21:25 Dose: 600 mg Lorazepam (Ativan Tab(*)) 1 mg PO Q6H PRN PRN Reason: ANXIETY Last Admin: 03/25/18 21:25 Dose: 1 mg Methylprednisolone Sodium Succinate (Solu-Medrol 40 Mg) 40 mg IV Q12H [facility] Last Admin: 03/26/18 05:39 Dose: 40 mg Mometasone Furoate/Formoterol Fumar (Dulera 200/5 Mdi*) 2 puff INH BID [facility] Last Admin: 03/26/18 07:21 Dose: 2 puff Nicotine Polacrilex (Nicotine Gum*) 2 mg PO Q2H PRN PRN Reason: CRAVING Pantoprazole Sodium (Protonix Tab (Nf)) 40 mg PO QAM [facility] Last Admin: 03/25/18 15:59 Dose: 40 mg Trazodone HCl (Desyrel Tab*) 100 mg PO BEDTIME PRN PRN Reason: SLEEP Last Admin: 03/25/18 21:25 Dose: 100 mg [place]acyclovir HCl ([facility]altrex 500 Mg (*)) [facility] [place] [facility] [place] Last Admin: 03/25/18 07:29 Dose: Not Given Vital Signs - 8 hr 03/26/18 03/26/18 03/26/18 02:15 03:04 03:17 Temperature 97.9 F Pulse Rate 91 88 Respiratory 18 20 20 Rate Blood Pressure 113/70 (mmHg) O2 Sat by Pulse 97 95 Oximetry 03/26/18 07:24 Temperature Pulse Rate 81 Respiratory 16 Rate Blood Pressure (mmHg) O2 Sat by Pulse 89 Oximetry Oxygen Devices in Use Now: None - 95 % RA Appearance: sitting up NAD Eyes: No Scleral Icterus, PERRLA Ears/Nose/Mouth/Throat: NL Teeth, Lips, Gums, Clear Oropharnyx Neck: NL Appearance and Movements; NL JVP, Trachea Midline Respiratory: - - diffuse wheeze, mildly prolonged expiratory phase Cardiovascular: RRR Abdominal: NL Sounds; No Tenderness; No Distention, No Hepatosplenomegaly Lymphatic: No Cervical Adenopathy Extremities: No Edema Skin: No Rash or Ulcers Neurological: Alert and Oriented x 3 Result Diagrams: 03/24/18 09:47 03/24/18 09:47 Microbiology and Other Data: Microbiology 03/24/18 09:47 Influenza Types A,B Antigen - Final Nasopharyngeal Specimen received for Influenza A/B Molecular testing Assess/Plan/Problems-Billing Assessment: Mrs Herr is a 23yo F with PMH of obesity with BMI 39, migraines, depression, asthma, tobacco abuse, who presented to ED with c/o dyspnea, found to have asthma exacerbation secondary to bronchitis. - Patient Problems (1) Asthma exacerbation Comment: - Continue Ceftriaxone, Zithromax, steroids, and bronchodilators. -Change standing nebs to PRN -off oxygen - Peak flow improved from 240 to 300 today - continue to monitor. -c/w IV steroids with plan for oral taper on discharge -discussed with pt. If she does not require frequent nebs, oxygen, and can ambulate around unit without distress today she can potentially be discharged later this afternoon (2) Tobacco abuse Current Visit: Yes Status: Acute Code(s): Z72.0 - TOBACCO USE SNOMED Code( s): 079902655 Comment: - States she quit recently, and uses Nicotine gum for cravings. Will continue while in the hospital. (3) Depression Comment: - Continue Bupropion, Vyvanse, and Adderall. (4) DVT prophylaxis Comment: - SQ heparin. Status and Disposition: Observation
[2018-03-26] MEDS: CMCS Lithium Carbonate ER (NF) 300 MG TAB.ER PO SCH (09:53)
[2018-03-26] MEDS: Cetirizine* 10 MG TAB PO SCH (09:53)
[2018-03-26] MEDS: LISDEXAMFETAMINE 10 MG PO SCH (09:53)
[2018-03-26] MEDS: Amphetamine MIXED SALT TAB* 10 MG TAB PO SCH (09:53)
[2018-03-26] MEDS: CMC:Pantoprazole TAB (NF) 40 MG TAB PO SCH (09:53)
[2018-03-26] MEDS: buPROPion SR TAB.SR* 100 MG PO SCH (09:53)
[2018-03-26] MEDS: Gabapentin CAP(*) 300 MG PO SCH ×2 (09:53→14:56)
[2018-03-26] MEDS: ValACYclovir (*) 500 MG TAB PO SCH (09:54)
[2018-03-26] MEDS ORDERED: Albuterol/Ipratropium NEB.SOL* Albuterol 2.5 MG/Ipratropium 0.5 MG 3 ML INH SCH (13:00)
[2018-03-26 13:26] VITALS: BP 118/69
--- NOTE | 2018-03-27 02:46 | DS ---
CC: Shea Suazo NP * DISCHARGE SUMMARY: DATE OF ADMISSION: DATE OF DISCHARGE: 03/26/18. PRIMARY CARE PROVIDER: Shea Suazo NP. PRIMARY DIAGNOSIS: Acute asthma exacerbation. SECONDARY DIAGNOSES: Include: 1. Mild persistent asthma. 2. Migraines. 3. Depression. 4. Obesity. MEDICATIONS AT DISCHARGE: 1. Prednisone 50 mg daily for 5 additional days. 2. Gabapentin 300 mg three times a day. 3. Adderall 20 mg daily. 4. Vyvanse 70 mg daily. 5. Tina 180 mg daily. 6. Valacyclovir 500 mg in the morning. 7. Protonix 20 mg daily. 8. Bupropion SR 200 mg daily. 9. Albuterol HFA one puff every 6 hours as needed. 10. [place] 600 mg twice daily. 11. Trazodone 100 mg daily at bedtime as needed. 12. Advair 500/50 one puff twice daily. Please note the increased dose of Advair from 200/50 to 500/50. PERTINENT LABORATORY DATA: White blood cell count on presentation is 11.9. Influenza A and B were negative. PERTINENT IMAGING: Chest x-ray. Impression: No active cardiopulmonary disease. HISTORY OF PRESENT ILLNESS AND HOSPITAL COURSE: This is a 23-year-old female with a past medical history as outlined in the history of present illness on the day of admission presented to the hospital with increased shortness of breath that had been starting steadily over the last weeks, but noted acute worsening on the day of admission requiring frequent nebulized albuterol with only intermittent relief. Of note, the patient has a 3 and 6-year-old at home, although they have not been ill. Additionally of note, the patient has concerns of mold in her basement with "sewage problems" with water backing up in the lower level of their duplex. Additionally, her mother has a new boyfriend who is living with the family and has a Malay good also that could potentially a trigger for her asthma. The patient was admitted to the hospital, treated with IV methylprednisolone as well as ceftriaxone and azithromycin. She improved and on the day of discharge, was ambulating around the unit multiple times without shortness of breath, fell back to her baseline, did not use any nebulizer therapy on the day of discharge, except for one in the morning that was still scheduled. After changing to p.r.n. she requested no more throughout the course of the day. The patient has not been using peak flow meter at home. On the day prior to discharge, her peak flow was 260. On the day of discharge , it was slightly over 300. She will be leaving with her peak flow and was given instructions how to use it and she is to use it daily until she feels back to her baseline. Her predicted peak flow is 478 based on height of 160 cm and her gender. Unknown what her baseline is when she is well. There were no complications during the course of this hospital stay. 1. At followup, please evaluate for stability of lung exam, extend steroid course if necessary. 2. Continue to surveil for smoking cessation which the patient has accomplished several weeks prior to presentation. 3. No other specific labs or vitals that needed follow up. REASONS TO RETURN TO THE HOSPITAL: Including but not limited to recurrent or worsening symptoms, decreasing peak flow volume, fevers, chills, night sweats, shortness of breath, increased wheezing, decreased exercise tolerance, chest pain, nausea, vomiting, lightheadedness, loss of consciousness, near loss of consciousness, inability to obtain or tolerate medications discussed with the patient. She acknowledged understanding. TIME SPENT: Greater than 60 minutes was spent discharging the patient, greater than half was spent [id number] with the patient. [id number]/[facility] #: [id number] MARYCARMEND
== END 2018-03-26 15:05 | disposition home or self-care (01) | DRG 141 ==
LOC: ED 08:49 → MED 14:17 → OBSVTOIN 03-25 10:00
PROVIDERS: ADMIT Internal Medicine; ATTEND Internal Medicine
DX: J45.901 Unspecified asthma with (acute) exacerbation (principal); G43.909 Migraine, unspecified, not intractable, without status migrainosus; F32.9 Major depressive disorder, single episode, unspecified; E66.9 Obesity, unspecified; Z68.39 Body mass index [BMI] 39.0-39.9, adult; Z87.891 Personal history of nicotine dependence; Z79.899 Other long term (current) drug therapy; Z88.8 Allergy status to other drugs, medicaments and biological substances; Z82.49 Family history of ischemic heart disease and other diseases of the circulatory system; Z82.5 Family history of asthma and other chronic lower respiratory diseases
CPT/HCPCS: 36415; 71046; 80053; 84702; 85025; 85379; 94640; 96374; 96375; 99284; A9270-GY; G0378; J0456; J0696; J1644; J2060; J2920; J2930; J3475

== ENCOUNTER 2018-04-26 01:22 | Inpatient (IN) | payer OTHER ==
--- NOTE | 2018-04-26 02:05 | ED ---
Psychiatric Complaint - HPI Summary HPI Summary: This patient is a 23 year old female brought in as a 941 by the [facility] police. The patient is expressing hopelessness but denies SI. She states there has been a lot of stress in her life which has increased her anxiety. She states she has not slept in 4 days and that her medications are not working. She is stressed because her mother abruptly moved out and she is responsible for her two children as well as trying to go to school. The mothers boyfriend also called CPS on her. She takes lithium, abilify, gabapentin, and hydroxyzine. Dx bipolar. Last dose of hydroxyzine 50 at 1600 - History Of Current Complaint Chief Complaint: EDMentalHealth Time Seen by Provider: 04/26/18 01:55 Hx Obtained From: Patient Hx Last Menstrual Period: today Onset/Duration: Lasting Days, Still Present Timing: Constant Severity Initially: Moderate Severity Currently: Moderate Character: Anxious Aggravating Factor(s): Recent Stress Related History: Positive For: Prior Psychiatric Issues Has Suicidal: Denies: Thoughts Has Homicidal: Denies: Thoughts - Allergies/Home Medications Allergies/Adverse Reactions: Allergies Allergy/AdvReac Type Severity Reaction Status Date / Time metoclopramide [From Reglan] Allergy Itching Verified 03/24/18 08:57 PMH/Surg Hx/FS Hx/Imm Hx Endocrine/Hematology History: Denies: Hx Anticoagulant Therapy, Hx Diabetes, Hx Thyroid Disease Cardiovascular History: Denies: Hx Hypertension, Hx Pacemaker/ICD Respiratory History: Reports: Hx Asthma, Hx Pneumonia, Hx Seasonal Allergies Denies: Hx Chronic Obstructive Pulmonary Disease (COPD) GI History: Denies: Hx Ulcer History: Reports: Hx Kidney Stones Denies: Hx Renal Disease Sensory History: Reports: Hx Contacts or Glasses Denies: Hx Hearing Aid Opthamlomology History: Reports: Hx Contacts or Glasses Neurological History: Reports: Hx Migraine, Other Neuro Impairments/Disorders - Vertigo Denies: Hx Dementia, Hx Seizures Psychiatric History: Reports: Hx Anxiety - on prozac, Hx Eating Disorder - used to purge, Hx Depression - on prozac, Hx Bipolar Disorder, Hx of Violent Episodes Against Others, Other Psychiatric Issues/Disorders Denies: Hx Substance Abuse - Surgical History Surgery Procedure, Year, and Place: Right arm reset as a child under anesthesia. - Immunization History Date of Tetanus Vaccine: up to date per pt Infectious Disease History: No Infectious Disease History: Denies: Hx Clostridium Difficile, Hx Hepatitis, Hx Human Immunodeficiency Virus (HIV), Hx of Known/Suspected MRSA, Hx Shingles, Hx Tuberculosis, Hx Known/ Suspected VRE, Hx Known/Suspected VRSA, History Other Infectious Disease, Traveled Outside the [place] in Last 30 Days - Family History Known Family History: Positive: Respiratory Disease - asthma in brother - Social History Alcohol Use: Occasionally Substance Use Type: Reports: Marijuana Substance Use Comment - Amount & Last Used: HX MARIJUANA USE in past Hx Tobacco Use: Yes - quit 2 weeks ago Smoking Status (MU): Heavy Every Day Tobacco Smoker Type: Cigarettes Amount Used/How Often: 1 pk/wk Have You Smoked in the Last Year: Yes Review of Systems Negative: Fever Psychological: Other - stressed Positive: Anxious, Other - hopelessness but denies SI All Other Systems Reviewed And Are Negative: Yes Physical Exam - Summary Physical Exam Summary: VITAL SIGNS: Reviewed. GENERAL: Patient is a well-developed and nourished FEMALE who is lying comfortable in the stretcher. Patient is not in any acute respiratory distress. Pt is tearful and upset HEAD AND FACE: No signs of trauma. No ecchymosis, hematomas or skull depressions. No sinus tenderness. EYES: PERRLA, EOMI x 2, No injected conjunctiva, no nystagmus. EARS: Hearing grossly intact. Ear canals and tympanic membranes are within normal limits. MOUTH: Oropharynx within normal limits. NECK: Supple, trachea is midline, no adenopathy, no JVD, no carotid bruit, no c- spine tenderness, neck with full ROM. CHEST: Symmetric, no tenderness at palpation LUNGS: Clear to auscultation bilaterally. No wheezing or crackles. CVS: Regular rate and rhythm, S1 and S2 present, no murmurs or gallops appreciated. ABDOMEN: Soft, non-tender. No signs of distention. No rebound no guarding, and no masses palpated. Bowel sounds are normal. EXTREMITIES: FROM in all major joints, no edema, no cyanosis or clubbing. NEURO: Alert and oriented x 3. No acute neurological deficits. Speech is normal and follows commands. SKIN: Dry and warm Triage Information Reviewed: Yes Vital Signs On Initial Exam: Initial Vitals Temp Pulse Resp BP Pulse Ox 97.4 F 107 20 132/93 99 04/26/18 01:22 04/26/18 01:22 04/26/18 01:22 04/26/18 01:22 04/26/18 01:22 Vital Signs Reviewed: Yes Diagnostics - Vital Signs Vital Signs Temp Pulse Resp BP Pulse Ox 04/26/18 01:22 97.4 F 107 20 132/93 99 - Laboratory Result Diagrams: 04/26/18 02:41 04/26/18 02:41 Lab Statement: Any lab studies that have been ordered have been reviewed, and results considered in the medical decision making process. Course/Dx - Course Assessment/Plan: This patient is a 23 year old female brought in as a 941 by the [facility] police. The patient is expressing hopelessness but denies SI. She states there has been a lot of stress in her life which has increased her anxiety. She states she has not slept in 4 days and that her medications are not working. She is stressed because her mother abruptly moved out and she is responsible for her two children as well as trying to go to school. The mothers boyfriend also called CPS on her. She takes lithium, abilify, gabapentin, and hydroxyzine. Dx bipolar. Last dose of hydroxyzine 50 at 1600. This patient will be signed out to Dr. Barnard on shift change awaiting MHE. - Differential Dx/Clinical Impression Provider Diagnosis: Depression Discharge - Sign-Out/Discharge Documenting (check all that apply): Sign-Out Patient Signing out patient TO: Hugh Barnard - Discharge Plan Referrals: Shea Suazo NP [Primary Care Provider] - - Attestation Statements Document Initiated by Scribe: Yes Documenting Scribe: Paul Currie Provider For Whom Saroj is Documenting (Include Credential): Alcira Snider MD Scribe Attestation: Paul Jung , scribed for Alcira Snider MD on 04/26/18 at 0627. Status of Scribe Document: Ready
[2018-04-26] MEDS ORDERED: LORazepam TAB(*) 1 MG PO ONE (02:17)
[2018-04-26 02:39] LABS: Urine Appearance Cloudy; Urine Blood Negative (Negative); Urine Color Amber; Urine Ketones Trace (Negative); Urine Protein 2+(100 mg/dL) (Negative); Urine Red Blood Cell Absent (Absent); Urine Specific Gravity 1.031 (1.010-1.030); Urine Urobilinogen Negative (Negative); Urine White Blood Cell 1+(6-10/hpf) (Absent)
[2018-04-26 02:58] LABS: ABS Basophils 0 10^3/ul (0-0.2); ABS Eosinophils 0.1 10^3/ul (0-0.6); ABS Lymphocytes 3.1 10^3/ul (1.0-4.8); ABS Monocytes 0.5 10^3/ul (0-0.8); ABS Neutrophils 4.6 10^3/ul (1.5-7.7); ABS Nucleated RBC 0 10^3/ul; Eosinophil % 1.6 %; Hematocrit 39 % (35-47); Lymphocyte % 37.2 %; Mean Corpuscular HGB Conc 33 g/dl (31-36); Mean Corpuscular Hemoglobin 29 pg (27-31); Mean Corpuscular Volume 88 fL (80-97); Mean Platelet Volume 7.7 fL (7.4-10.4); Nucleated Red Blood Cells % 0.1; Platelet Count 290 10^3/ul (150-450); Red Blood Count 4.47 10^6/ul (4.00-5.40); Red Cell Distribution Width 14 % (10.5-15); White Blood Count 8.4 10^3/ul (3.5-10.8)
[2018-04-26 03:30] LABS: Lithium < 0.10 mmol/L (0.6-1.2)
--- NOTE | 2018-04-26 07:21 | ED ---
Progress - Progress Note Progress Note: This pt was signed out by Dr. Snider, pending disposition, awaiting mental health evaluation. Course/Dx - Course Course Of Treatment: Pt was signed out by Dr. Snider at shift change pending MHE. Pt had a mental health evaluation and her case was reviewed by Dr. Keating, psychiatrist. Dr. Keating will admit the pt voluntarily to [facility] with diagnosis of unspecified depressive disorder. - Diagnoses Provider Diagnoses: Depressive disorder Discharge - Sign-Out/Discharge Documenting (check all that apply): Patient Departure - Admit to [facility], Receiving Sign-Out Receiving patient FROM: Alcira Snider - Discharge Plan Condition: Stable Disposition: [place]IATRIC FACILITY[place] [place] - Billing Disposition and Condition Condition: STABLE Disposition: Psychiatric Facility [facility] [place] - Attestation Statements Document Initiated by Scribe: Yes Documenting Scribe: Yanet Gautam Provider For Whom Scribe is Documenting (Include Credential): Hugh Barnard MD Scribe Attestation: Yanet Jung, scribed for Hugh Barnard MD on 04/26/18 at 1839. Scribe Documentation Reviewed: Yes Provider Attestation: The documentation as recorded by the Yanet whitman accurately reflects the service I personally performed and the decisions made by , Hugh Barnard MD Status of Scribe Document: Viewed
[2018-04-26] MEDS ORDERED: Mouth Piece, Nicotine* 1 EACH CARTRIDGE INH ONE (08:00)
--- NOTE | 2018-04-26 13:32 | PN ---
ED Flex Patient Progress Note Date of Service: 04/26/18 Subjective: This is a 23 year-old F who is pending admission to [facility] / transfer to another psychiatric facility / discharge to home / or being observed secondary to increased stress, depression. Pt. examined in room 22 around 0900. She is resting comfortably. Offers no complaints. Objective: Vitals: Most recent vital signs documented below. General NAD, Alert and oriented x3. Laboratory: Current laboratory results documented below. Assessment: Pending admission Plan: Pending psychiatric or medical consultation to observe / transfer / admit / discharge will follow up daily . Vital Signs Temp Pulse Resp BP Pulse Ox 96.8 F 105 17 140/70 100 04/26/18 11:04 04/26/18 11:04 04/26/18 11:04 04/26/18 11:04 04/26/18 11:04 Lab Results - Entire Visit 04/26/18 04/26/18 04/26/18 02:41 02:41 02:27 WBC 8.4 RBC 4.47 Hgb 13.0 Hct 39 MCV 88 MCH 29 MCHC 33 RDW 14 Plt Count 290 MPV 7.7 Neut % (Auto) 54.8 Lymph % (Auto) 37.2 [place] % (Auto) 6.2 Eos % (Auto) 1.6 Baso % (Auto) 0.2 Absolute Neuts (auto) 4.6 Absolute Lymphs (auto) 3.1 Absolute Monos (auto) 0.5 Absolute Eos (auto) 0.1 Absolute Basos (auto) 0 Absolute Nucleated RBC 0 Nucleated RBC % 0.1 Sodium 137 Potassium 3.6 Chloride 110 Carbon Dioxide 18 L Anion Gap 9 BUN 12 Creatinine 0.91 Est GFR ( Amer) 91.9 Est GFR (Non-Af Amer) 76.0 BUN/Creatinine Ratio 13.2 Glucose 121 H Calcium 9.0 Total Bilirubin 0.20 AST 18 ALT 15 Alkaline Phosphatase 68 Total Protein 6.6 Albumin 3.7 Globulin 2.9 Albumin/Globulin Ratio 1.3 TSH 2.81 Beta HCG, Quant < 0.60 Urine Color Urine Appearance Urine pH Ur Specific [place] Urine Protein Urine Ketones Urine Blood Urine Nitrate Urine Bilirubin Urine Urobilinogen Ur Leukocyte Esterase Urine WBC (Auto) Urine RBC (Auto) Ur Squamous Epith Cells Urine Bacteria Hyaline Casts Urine Glucose Urine Ascorbic Acid Salicylates < 2.50 Urine Opiates Screen None detected Acetaminophen < 15 Ur Barbiturates Screen None detected Ur Phencyclidine Scrn None detected Ur Amphetamines Screen Presumptive positive A U Benzodiazepines Scrn None detected [place] < 0.10 L Urine Cocaine Screen None detected U Cannabinoids Screen Presumptive positive A Serum Alcohol < 10 04/26/18 02:27 WBC RBC Hgb Hct MCV MCH MCHC RDW Plt Count MPV Neut % (Auto) Lymph % (Auto) [place] % (Auto) Eos % (Auto) Baso % (Auto) Absolute Neuts (auto) Absolute Lymphs (auto) Absolute Monos (auto) Absolute Eos (auto) Absolute Basos (auto) Absolute Nucleated RBC Nucleated RBC % Sodium Potassium Chloride Carbon Dioxide Anion Gap BUN Creatinine Est GFR ( Amer) Est GFR (Non-Af Amer) BUN/Creatinine Ratio Glucose Calcium Total Bilirubin AST ALT Alkaline Phosphatase Total Protein Albumin Globulin Albumin/Globulin Ratio TSH Beta HCG, Quant Urine Color Katherine Urine Appearance Cloudy Urine pH 5.0 Ur Specific [place] 1.031 H Urine Protein 2+(100 mg/dl) A Urine Ketones Trace A Urine Blood Negative Urine Nitrate Negative Urine Bilirubin Negative Urine Urobilinogen Negative Ur Leukocyte Esterase Trace A Urine WBC (Auto) 1+(6-10/hpf) A Urine RBC (Auto) Absent Ur Squamous Epith Cells Present A Urine Bacteria Absent Hyaline Casts Present A Urine Glucose Negative Urine Ascorbic Acid * A Salicylates Urine Opiates Screen Acetaminophen Ur Barbiturates Screen Ur Phencyclidine Scrn Ur Amphetamines Screen U Benzodiazepines Scrn [place] Urine Cocaine Screen U Cannabinoids Screen Serum Alcohol
[2018-04-26] MEDS ORDERED: Acetaminophen TAB* 325 MG PO PRN (13:45)
[2018-04-26] MEDS ORDERED: Al Hydrox/Mg Hydrox/Simet LIQ* 30 ML UDC PO PRN (13:45)
[2018-04-26] MEDS ORDERED: traZODone TAB* 100 MG PO PRN (13:47)
[2018-04-26] MEDS ORDERED: Albuterol HFA INHALER* 8 gm MDI INH PRN (13:47)
[2018-04-26] MEDS ORDERED: hydrOXYzine HCL TAB* 50 MG PO PRN (13:48)
[2018-04-26] MEDS: Gabapentin CAP(*) 300 MG PO SCH ×2 (17:33→22:18)
[2018-04-26] MEDS ORDERED: Mouth Piece, Nicotine* 1 EACH CARTRIDGE ONE (17:56)
[2018-04-26] MEDS: Nicotine GUM* 2 MG PO PRN (17:57)
[2018-04-26] MEDS: Nicotine Inhaler* 10 MG AMP INH PRN (17:58)
[2018-04-26] MEDS: CMCS: Lithium Carbonate ER (NF) 300 MG TAB.ER PO SCH (22:20)
[2018-04-26] MEDS: Mometasone/Formoter 200/5 MDI INH SCH (22:21)
[2018-04-27] MEDS ORDERED: buPROPion SR TAB.SR* 100 MG PO SCH (09:00)
[2018-04-27] MEDS: Gabapentin CAP(*) 300 MG PO SCH ×3 (10:09→22:06)
[2018-04-27] MEDS: Cetirizine* 10 MG TAB PO SCH (10:09)
[2018-04-27] MEDS: CMCS: Lithium Carbonate ER (NF) 300 MG TAB.ER PO SCH ×2 (10:09→22:05)
[2018-04-27] MEDS: ValACYclovir (*) 500 MG TAB PO SCH (10:10)
[2018-04-27] MEDS: Mometasone/Formoter 200/5 MDI INH SCH ×2 (10:10→22:09)
[2018-04-27] MEDS: NFT: Pantoprazole TAB (NF) 20 MG TAB PO SCH (10:12)
[2018-04-27] MEDS: Nicotine GUM* 2 MG PO PRN ×3 (10:16→22:12)
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
[2018-04-27] MEDS: clonazePAM TAB(*) 0.5 MG PO SCH ×2 (15:08→22:07)
[2018-04-27] MEDS ORDERED: Mirtazapine TAB* 15 MG PO SCH (21:00)
[2018-04-27] MEDS: Nicotine Inhaler* 10 MG AMP INH PRN (22:12)
[2018-04-28] MEDS: Cetirizine* 10 MG TAB PO SCH (09:40)
[2018-04-28] MEDS: CMCS: Lithium Carbonate ER (NF) 300 MG TAB.ER PO SCH ×2 (09:40→21:38)
[2018-04-28] MEDS: ValACYclovir (*) 500 MG TAB PO SCH (09:40)
[2018-04-28] MEDS: Gabapentin CAP(*) 300 MG PO SCH ×3 (09:40→21:39)
[2018-04-28] MEDS: clonazePAM TAB(*) 0.5 MG PO SCH ×2 (09:40→21:37)
[2018-04-28] MEDS: NFT: Pantoprazole TAB (NF) 20 MG TAB PO SCH (09:41)
[2018-04-28] MEDS: Mometasone/Formoter 200/5 MDI INH SCH ×2 (09:43→22:24)
[2018-04-28] MEDS: Nicotine GUM* 2 MG PO PRN ×4 (09:46→21:42)
--- NOTE | 2018-04-28 13:55 | PN ---
Subjective - Subjective Date of Service: 04/28/18 Service Type: 81511 Hosp care 15 min low complexity Subjective: Patient was seen by self, discussed with treatment team, chart was reviewed. Patient has been compliant with her medications, no reported side effects. Patient reports continued anxiety and depression, worries about her financial situation with rent, worries about her mother taking care of her children. Patient insisted on taking Abilify to help with her mood, sleep and worries as she was taking it outpatient. Patient sleeping was better last night. Patient slept around 10 and woke up once worrying about her situation, overwhelmed was unable to fall asleep for sometime but then after falling asleep woke up around 6. Patient eating has been fair. Patient has been cooperative with staff. Patient behavior has been in control. Patient mood was anxious and dysphoric less than yesterday and reports some improvement in racing thoughts. Patient has been reporting no suicidal or homicidal ideation. No psychotic symptoms of delusions or hallucinations. Objective - Appearance Appearance: Obese Dysmorphic Features: No Hygiene: Normal Grooming: Fairly Well Kept - Behavior Psychomotor Activities: Normal Exhibits Abnormal Movement: No - Attitude and Relatedness Attitude and Relatedness: Superficially Cooperative - with some fidgety and restlessness Eye Contact: Fair - Speech Quality: Unpressured Latencies: Normal Quantity: Appropriate - Mood Patient's Decription of Mood: "Upset" - Affect Observed Affect: Tearful Affect Consistent with: Dysphoria - Thought Process Patient's Thought Process: Coherent Thought Content: No Passive Wish, No Suicidal Planning, No Homicidal Ideation, No Paranoid Ideation - Sensorium Experiencing Hallucinations: No, Sensorium is Clear Type of Hallucinations: Visual: No, Auditory: No, Command: No - Level of Consciousness Level of Consciousness: Alert Orientation: Yes Intact, Yes Orientated to Time, Yes Orientated to Place, Yes Orientated to Person - Impulse Control Impulse Control: Intact - at time of evaluation - Insight and Judgement Insight and Judgement: Fair - but ambivalent about her treatment due to stress in the community - Group Participation Particating in Group Activities: No - Medication Management Medication Management Adherence: Yes Assessment - Assessment Merits Inpatient Hospitalization: For Immediate Safety, For Stabilization, For Discharge Planning Inpatient DSM-V Dx: F31.60 Clinical Impression: Patient with history of Bipolar Disorder and ADHD. Patient currently admitted due to worsening of anxiety, depression, inability to sleep and suicidal thoughts and plan in context of multiple psychosocial stressors recently. Patient has also struggled with academic stress at school and work related stress with other social issues (including CPS involvement, mother and fianc moving out) . Patient is a danger to self if discharged hence will be stabilized on inpatient unit with medication adjustments and therapy. MHU: Problem List - Patient Problems (1) Adjustment disorder Current Visit: Yes Status: Acute Code(s): F43.20 - ADJUSTMENT DISORDER, UNSPECIFIED SNOMED Code(s): 83591657 (2) Bipolar disorder Current Visit: Yes Status: Acute (3) ADHD Current Visit: Yes Status: Acute Plan - Plan Treatment Plan: Name: GENET KELLY Birthdate: 1995 [id number] - Patient continues to be hospitalized due to recent suicidal thoughts with plan , mood instability, anxiety and insomnia. - Patient's medications were adjusted after informed consent with increment in Remeron to 30 mg at bedtime to help with depression, anxiety and sleep. Patient [place] was restarted during th hospitalization continued on 600mg BID. Patient to continue with Gabapentin 3000mg PO TID. Patient to also continue with Clonazepam 0.5 mg BID for now with plan to taper off. - Patient will be monitored for improvement and side effects. Risk and benefits were discussed. - Patient was encouraged to continue his participation in the milieu, group and individual therapy. Medications: Current Medications Acetaminophen (Tylenol Tab*) 650 mg PO Q4H PRN PRN Reason: for pain; or Temp >101 F Al Hydrox/Mg Hydrox/Simethicone (Maalox Plus*) 30 ml PO Q4H PRN PRN Reason: INDIGESTION Albuterol (Ventolin Hfa Inhaler*) 1 puff INH Q6H PRN PRN Reason: SOB/WHEEZING Cetirizine HCl (Zyrtec*) 10 mg PO DAILY [facility]; Protocol Last Admin: 04/28/18 09:40 Dose: 10 mg Clonazepam (Klonopin Tab(*)) 0.5 mg PO BID [facility] Last Admin: 04/28/18 09:40 Dose: 0.5 mg Gabapentin (Neurontin Cap(*)) 300 mg PO TID [facility] Last Admin: 04/28/18 09:40 Dose: 300 mg Hydroxyzine HCl (Atarax Tab*) 50 mg PO Q6H PRN PRN Reason: ANXIETY Last Admin: 04/26/18 17:59 Dose: 50 mg [place] Carbonate ([place] Carbonate Er (Nf)) 600 mg PO BID [facility]; Protocol Last Admin: 04/28/18 09:40 Dose: 600 mg Mirtazapine (Remeron Tab*) 30 mg PO BEDTIME [facility] Mometasone Furoate/Formoterol Fumar (Dulera 200/5 Mdi*) 2 puff INH BID [facility] Last Admin: 04/28/18 09:43 Dose: 2 puff Nicotine (Nicotine Inhaler*) 10 mg INH Q2H PRN PRN Reason: CRAVING Last Admin: 04/27/18 22:12 Dose: 10 mg Nicotine Polacrilex (Nicotine Gum*) 2 mg PO Q2H PRN PRN Reason: CRAVING Last Admin: 04/28/18 09:46 Dose: 2 mg Pantoprazole Sodium (Protonix Tab (Nf)) 20 mg PO QAM [facility] Last Admin: 04/28/18 09:41 Dose: Not Given Valacyclovir HCl (Valtrex 500 Mg (*)) 500 mg PO QAM [facility]; Protocol Last Admin: 04/28/18 09:40 Dose: 500 mg
[2018-04-28] MEDS: Nicotine Inhaler* 10 MG AMP INH PRN (17:38)
[2018-04-28] MEDS ORDERED: Mirtazapine TAB* 15 MG PO SCH (21:00)
[2018-04-29 07:49] VITALS: BP 121/78
[2018-04-29] MEDS: ValACYclovir (*) 500 MG TAB PO SCH (09:00)
[2018-04-29] MEDS: Gabapentin CAP(*) 300 MG PO SCH ×2 (09:00→13:59)
[2018-04-29] MEDS: Nicotine GUM* 2 MG PO PRN ×2 (09:00→12:33)
[2018-04-29] MEDS: Cetirizine* 10 MG TAB PO SCH (09:00)
[2018-04-29] MEDS: clonazePAM TAB(*) 0.5 MG PO SCH (09:00)
[2018-04-29] MEDS: CMCS: Lithium Carbonate ER (NF) 300 MG TAB.ER PO SCH (09:00)
[2018-04-29] MEDS: Nicotine Inhaler* 10 MG AMP INH PRN (09:00)
[2018-04-29] MEDS: Mometasone/Formoter 200/5 MDI INH SCH (09:02)
[2018-04-29] MEDS: NFT: Pantoprazole TAB (NF) 20 MG TAB PO SCH (09:16)
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
== END 2018-04-29 14:20 | disposition home or self-care (01) | DRG 753 ==
LOC: ED 01:22 → BSU 13:45
PROVIDERS: ADMIT Psychiatry & Neurology Psychiatry; ATTEND Psychiatry & Neurology Psychiatry
DX: F31.60 Bipolar disorder, current episode mixed, unspecified (principal); R45.851 Suicidal ideations; F43.23 Adjustment disorder with mixed anxiety and depressed mood; F90.9 Attention-deficit hyperactivity disorder, unspecified type; J45.909 Unspecified asthma, uncomplicated; K21.9 Gastro-esophageal reflux disease without esophagitis; F12.10 Cannabis abuse, uncomplicated; J30.2 Other seasonal allergic rhinitis; G43.909 Migraine, unspecified, not intractable, without status migrainosus; F50.9 Eating disorder, unspecified; F17.210 Nicotine dependence, cigarettes, uncomplicated; E66.9 Obesity, unspecified; Z88.8 Allergy status to other drugs, medicaments and biological substances; Z81.1 Family history of alcohol abuse and dependence; Z83.6 Family history of other diseases of the respiratory system; Z91.5 Personal history of self-harm; Z72.89 Other problems related to lifestyle; Z87.442 Personal history of urinary calculi; Z87.01 Personal history of pneumonia (recurrent); Z81.8 Family history of other mental and behavioral disorders; Z68.39 Body mass index [BMI] 39.0-39.9, adult
CPT/HCPCS: 36415; 80053; 80061; 80178; 80307; 80320; 80329; 81003; 81015; 83036; 84443; 84702; 85025; 87086; 99222; 99231; 99283; A9270-GY; G0480

== ENCOUNTER 2018-06-30 17:08 | Emergency (ER) | payer OTHER ==
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
[2018-06-30 17:55] LABS: ABS Basophils 0.2 10^3/ul (0-0.2); ABS Eosinophils 0.6 10^3/ul (0-0.6); ABS Lymphocytes 2.2 10^3/ul (1.0-4.8); ABS Monocytes 0.8 10^3/ul (0-0.8); ABS Neutrophils 11.2 10^3/ul (1.5-7.7); ABS Nucleated RBC 0 10^3/ul; Eosinophil % 4.3 %; Hematocrit 40 % (35-47); Hemoglobin 13.2 g/dl (12.0-16.0); Lymphocyte % 14.6 %; Mean Corpuscular HGB Conc 33 g/dl (31-36); Mean Corpuscular Hemoglobin 28 pg (27-31); Mean Corpuscular Volume 86 fL (80-97); Mean Platelet Volume 7.4 fL (7.4-10.4); Nucleated Red Blood Cells % 0; Platelet Count 318 10^3/ul (150-450); Red Blood Count 4.69 10^6/ul (4.00-5.40); Red Cell Distribution Width 14 % (10.5-15)
[2018-06-30] MEDS ORDERED: predniSONE TAB* 20 MG PO ONE (17:59)
[2018-06-30] MEDS ORDERED: Albuterol/Ipratropium NEB.SOL* Albuterol 2.5 MG/Ipratropium 0.5 MG 3 ML INH ONE ×2 (17:59→20:21)
[2018-06-30 18:01] LABS: INR 1.05 (0.77-1.02)
[2018-06-30 18:10] LABS: Albumin 4.1 g/dL (3.2-5.2); Albumin/Globulin Ratio 1.6 (1-3); BUN/Creatinine Ratio 8.7 (8-20); Calcium 9.3 mg/dL (8.6-10.3); EGFR African American 126.5 (>60); EGFR Non-African American 104.5 (>60); Globulin 2.6 g/dL (2-4); Potassium 3.9 mmol/L (3.5-5.0); Total Bilirubin 0.3 mg/dL (0.2-1.0); Total Protein 6.7 g/dL (6.4-8.9)
--- NOTE | 2018-06-30 20:49 | ED ---
Influenza-Like Illness - HPI Summary HPI Summary: Patient complains of intermittent SOB, dry cough, body aches, headache 1 week. Patient has history of asthma with nebulizers and inhalers at home which she states offered no relief. Denies fever, sore throat, neck stiffness, CP, N/V/D , abdominal pain, change in urine, change in BM. Medical history is asthma, bipolar. Positive smoker. Denies EtOH or recreational drug use. - History of Current Complaint Chief Complaint: EDFluSymptoms Time Seen by Provider: 06/30/18 17:53 Hx Obtained From: Patient Onset/Duration: Gradual Onset, Lasting Days Severity: Moderate Associated Signs & Symptoms: Myalgia, Cough, Headache - Allergy/Home Medications Allergies/Adverse Reactions: Allergies Allergy/AdvReac Type Severity Reaction Status Date / Time metoclopramide [From Reglan] Allergy Itching Verified 06/30/18 17:14 PMH/Surg Hx/FS Hx/Imm Hx Endocrine/Hematology History: Denies: Hx Anticoagulant Therapy, Hx Diabetes, Hx Thyroid Disease Cardiovascular History: Denies: Hx Hypertension, Hx Pacemaker/ICD Respiratory History: Reports: Hx Asthma, Hx Pneumonia, Hx Seasonal Allergies Denies: Hx Chronic Obstructive Pulmonary Disease (COPD) GI History: Denies: Hx Ulcer History: Reports: Hx Kidney Stones Denies: Hx Renal Disease Sensory History: Reports: Hx Contacts or Glasses Denies: Hx Hearing Aid Opthamlomology History: Reports: Hx Contacts or Glasses Neurological History: Reports: Hx Migraine, Other Neuro Impairments/Disorders - Vertigo Denies: Hx Dementia, Hx Seizures Psychiatric History: Reports: Hx Anxiety - on prozac, Hx Attention Deficit Hyperactivity Disorder, 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 - Immunization History Date of Tetanus Vaccine: up to date per pt Infectious Disease History: No Infectious Disease History: Denies: Hx Clostridium Difficile, Hx Hepatitis, Hx Human Immunodeficiency Virus (HIV), Hx of Known/Suspected MRSA, Hx Shingles, Hx Tuberculosis, Hx Known/ Suspected VRE, Hx Known/Suspected VRSA, History Other Infectious Disease, Traveled Outside the [place] in Last 30 Days - Family History Known Family History: Positive: Respiratory Disease - asthma in brother - Social History Alcohol Use: Occasionally Substance Use Type: Reports: Marijuana Substance Use Comment - Amount & Last Used: HX MARIJUANA USE in past Hx Tobacco Use: Yes - quit 2 weeks ago Smoking Status (MU): Current Every Day Smoker Type: Cigarettes Amount Used/How Often: 1 pk/wk Have You Smoked in the Last Year: Yes Review of Systems Constitutional: Negative Eyes: Negative ENT: Negative Cardiovascular: Negative Positive: Shortness Of Breath, Cough Gastrointestinal: Negative Genitourinary: Negative Positive: Myalgia Skin: Negative Positive: Headache Psychological: Normal All Other Systems Reviewed And Are Negative: Yes Physical Exam - Summary Physical Exam Summary: Patient in no apparent distress. O2 sats 90 and 94%. Mild bilateral wheezing. No cough noted during exam. Abdomen soft nontender. ENT exam unremarkable. Triage Information Reviewed: Yes Vital Signs On Initial Exam: Initial Vitals Temp Pulse Resp BP Pulse Ox 97.8 F 104 26 147/88 90 06/30/18 17:12 06/30/18 17:12 06/30/18 17:12 06/30/18 17:12 06/30/18 17:12 Vital Signs Reviewed: Yes Appearance: Positive: Well-Appearing Skin: Positive: Warm Head/Face: Positive: Normal Head/Face Inspection Eyes: Positive: Normal ENT: Positive: Normal ENT inspection Neck: Positive: Supple Respiratory/Lung Sounds: Positive: Wheezes Cardiovascular: Positive: Normal Abdomen Description: Positive: Nontender Musculoskeletal: Positive: Normal Neurological: Positive: Normal Psychiatric: Positive: Normal AVPU Assessment: Alert - [place] Coma Scale Best Eye Response: 4 - Spontaneous Best Motor Response: 6 - Obeys Commands Best Verbal Response: 5 - Oriented Coma Scale Total: 15 Diagnostics - Vital Signs Vital Signs Temp Pulse Resp BP Pulse Ox 06/30/18 20:02 88 23 131/84 93 06/30/18 20:00 85 21 92 06/30/18 19:32 89 20 134/88 95 06/30/18 19:02 86 25 129/84 91 06/30/18 19:00 84 24 92 06/30/18 18:15 84 22 92 06/30/18 18:07 99 15 93 06/30/18 17:12 97.8 F 104 26 147/88 90 - Laboratory Lab Results: Lab Results 06/30/18 06/30/18 06/30/18 Range/Units 17:47 17:47 17:47 WBC 15.0 H (3.5-10.8) 10^3/ul RBC 4.69 (4.00-5.40) 10^6/ul Hgb 13.2 (12.0-16.0) g/dl Hct 40 (35-47) % MCV 86 (80-97) fL MCH 28 (27-31) pg MCHC 33 (31-36) g/dl RDW 14 (10.5-15) % Plt Count 318 (150-450) 10^3/ul MPV 7.4 (7.4-10.4) fL Neut % (Auto) 74.7 % Lymph % (Auto) 14.6 % [place] % (Auto) 5.2 % Eos % (Auto) 4.3 % Baso % (Auto) 1.2 % Absolute Neuts (auto) 11.2 H (1.5-7.7) 10^3/ul Absolute Lymphs (auto) 2.2 (1.0-4.8) 10^3/ul Absolute Monos (auto) 0.8 (0-0.8) 10^3/ul Absolute Eos (auto) 0.6 (0-0.6) 10^3/ul Absolute Basos (auto) 0.2 (0-0.2) 10^3/ul Absolute Nucleated RBC 0 10^3/ul Nucleated RBC % 0 INR (Anticoag Therapy) 1.05 H (0.77-1.02) Sodium 142 (135-145) mmol/L Potassium 3.9 (3.5-5.0) mmol/L Chloride 110 (101-111) mmol/L Carbon Dioxide 27 (22-32) mmol/L Anion Gap 5 (2-11) mmol/L BUN 6 (6-24) mg/dL Creatinine 0.69 (0.51-0.95) mg/dL Est GFR ( Amer) 126.5 (>60) Est GFR (Non-Af Amer) 104.5 (>60) BUN/Creatinine Ratio 8.7 (8-20) Glucose 102 H (70-100) mg/dL Calcium 9.3 (8.6-10.3) mg/dL Total Bilirubin 0.30 (0.2-1.0) mg/dL AST 16 (13-39) U/L ALT 23 (7-52) U/L Alkaline Phosphatase 77 (34-104) U/L Total Protein 6.7 (6.4-8.9) g/dL Albumin 4.1 (3.2-5.2) g/dL Globulin 2.6 (2-4) g/dL Albumin/Globulin Ratio 1.6 (1-3) Result Diagrams: 06/30/18 17:47 06/30/18 17:47 Lab Statement: Any lab studies that have been ordered have been reviewed, and results considered in the medical decision making process. Flu Symptom Course/Dx - Course Course Of Treatment: Patient complains of intermittent SOB, dry cough, body aches, headache 1 week. Patient has history of asthma with nebulizers and inhalers at home which she states offered no relief. Denies fever, sore throat , neck stiffness, CP, N/V/D, abdominal pain, change in urine, change in BM. Medical history is asthma, bipolar. Positive smoker. Denies EtOH or recreational drug use. Physical exam:Patient in no apparent distress. O2 sats 90 and 94%. Mild bilateral wheezing. No cough noted during exam. Abdomen soft nontender. ENT exam unremarkable. O2 sats ranged between 89 and 94% on room air.. Vital signs otherwise within normal limits. DuoNeb 3. Prednisone 60 mg by mouth. Patient prefers to go home. Patient has inhalers and nebulizers at home. Rx for prednisone. Advised patient to return for any concerning symptoms. Patient understands and approves the plan. - Diagnoses Provider Diagnoses: Viral syndrome, Asthma exacerbation, Hypoxia Discharge - Sign-Out/Discharge Documenting (check all that apply): Patient Departure Patient Received Moderate/Deep Sedation with Procedure: No - Discharge Plan Condition: Fair Disposition: HOME Prescriptions: predniSONE TAB* [Deltasone 20 MG TAB*] 40 mg PO DAILY 5 Days #10 tab Patient Education Materials: Viral Syndrome (ED), Bronchospasm (ED) Forms: *School Release, *Work Release Referrals: Shea Suazo NP [Primary Care Provider] - Additional Instructions: Take prednisone as directed. Use your inhalers and nebulizer treatments as indicated. Follow-up with primary care. Return to the ED for any new or worsening symptoms. - Billing Disposition and Condition Condition: FAIR Disposition: Home
[2018-06-30] MEDS ORDERED: Magnesium Sulfate 2 GM IV* 2 GM/50 ML BAG IVPB ONE (21:02)
[2018-06-30] MEDS ORDERED: Albuterol 0.5% CONC NEB.SOL* 5 MG/ML 20 ml BOT INH ONE (23:52)
[2018-06-30] MEDS ORDERED: guaiFENesin/CODIEN 100MG-10MG* 5 ML UDC PO ONE (23:54)
[2018-06-30] MEDS ORDERED: guaiFENesin/CODIEN 100MG-10MG* 5 ML UDC ONE (23:58)
[2018-06-30] MEDS ORDERED: Albuterol 2.5 MG/3 ML NEB.SOL* (0.083%) INH ONE ×2 (23:59)
[2018-07-01 00:41] VITALS: BP 118/74
== END 2018-07-01 00:40 | disposition home or self-care (01) ==
LOC: ED 17:08
DX: J45.901 Unspecified asthma with (acute) exacerbation (principal); R09.02 Hypoxemia; R05 Cough; R06.02 Shortness of breath; R51 Headache; F17.210 Nicotine dependence, cigarettes, uncomplicated; B34.9 Viral infection, unspecified
CPT/HCPCS: 36415; 71046; 80053; 85025; 85610; 96365; 99283; A9270-GY; J3475; J7512

== ENCOUNTER 2018-12-21 07:12 | Observation (INO) | payer OTHER ==
[2018-12-21 07:36] LABS: ABS Basophils 0.1 10^3/ul (0-0.2); ABS Eosinophils 0.3 10^3/ul (0-0.6); ABS Lymphocytes 1.6 10^3/ul (1.0-4.8); ABS Monocytes 0.2 10^3/ul (0-0.8); ABS Neutrophils 10.4 10^3/ul (1.5-7.7); Eosinophil % 2.5 %; Hematocrit 40 % (35-47); Hemoglobin 13.2 g/dL (12.0-16.0); Lymphocyte % 12.9 %; Mean Corpuscular HGB Conc 33 g/dL (31-36); Mean Corpuscular Hemoglobin 29 pg (27-31); Mean Corpuscular Volume 87 fL (80-97); Mean Platelet Volume 7.2 fL (7.4-10.4); Platelet Count 298 10^3/uL (150-450); Red Blood Count 4.53 10^6 /uL (3.70-4.87); Red Cell Distribution Width 14 % (10-15); White Blood Count 12.7 10^3/uL (3.5-10.8)
[2018-12-21] MEDS ORDERED: oxyCODONE/Acetamin 5/325 MG* TAB PO ONE (07:38)
--- NOTE | 2018-12-21 07:42 | ED ---
GI/ HPI - HPI Summary HPI Summary: The pt is a 23 yr old female presenting to [facility] c/o right flank pain beginning a few weeks ago with worsening early this morning. She has been feeling pain in her right flank with dysuria that has been manageable with ibuprofen, and her pain was alleviated by taking flexeril when it was first onset a few days ago. However, last night at 0400 while at work she had a dull back pain that worsened over time with returning right flank pain. At its worst point she was dizzy with nausea and vomiting. She describes the pain as the worst she has ever experienced with current pain rating at 9/10 in severity. She took flexeril while at work overnight but it did not help. She also reports feeling very cold but doesnt know if she has had fever. She has a Hx of kidney stones and sciatica. - History of Current Complaint Chief Complaint: EDFlankPain Stated Complaint: FLANK PAIN/VOMITING PER PT Hx Obtained From: Patient Hx Last Menstrual Period: today Onset/Duration: Started Days Ago, Still Present, Worse Since - this morning Timing: Constant, Lasting Days Severity: Severe Current Severity: Severe Pain Intensity: 9 Location of Pain: Radiates to: - Right lower back, Flank - Right flank Associated Signs and Symptoms: Positive: Back Pain, Dizziness, Nausea, Vomiting , Dysuria Aggravating Factor(s): Nothing Alleviating Factor(s): Nothing - attempted Ibuprofen and Flexeril to no relief - Additional Pertinent History Primary Care Physician: [id number] - Allergy/Home Medications Allergies/Adverse Reactions: Allergies Allergy/AdvReac Type Severity Reaction Status Date / Time metoclopramide [From Reglan] Allergy Itching Verified 12/21/18 07:18 Home Medications: Home Medications ARIPiprazole TAB* [Abilify TAB*] 10 mg PO DAILY 12/21/18 [History Confirmed ] Mirtazapine TAB* [Remeron TAB*] 30 mg PO BEDTIME PRN 12/21/18 [History Confirmed 12/21/18] Montelukast Sodium TAB* [Singulair 10 MG TAB*] 10 mg PO DAILY 12/21/18 [History Confirmed 12/21/18] PMH/Surg Hx/FS Hx/Imm Hx Endocrine/Hematology History: Denies: Hx Anticoagulant Therapy, Hx Diabetes, Hx Thyroid Disease Cardiovascular History: Denies: Hx Hypertension, Hx Pacemaker/ICD Respiratory History: Reports: Hx Asthma, Hx Pneumonia, Hx Seasonal Allergies Denies: Hx Chronic Obstructive Pulmonary Disease (COPD) GI History: Denies: Hx Ulcer History: Reports: Hx Kidney Stones Denies: Hx Renal Disease Sensory History: Reports: Hx Contacts or Glasses Denies: Hx Hearing Aid Opthamlomology History: Reports: Hx Contacts or Glasses Neurological History: Reports: Hx Migraine, Other Neuro Impairments/Disorders - Vertigo Denies: Hx Dementia, Hx Seizures Psychiatric History: Reports: Hx Anxiety - on prozac, Hx Attention Deficit Hyperactivity Disorder, 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 - Immunization History Date of Tetanus Vaccine: up to date per pt Infectious Disease History: No Infectious Disease History: Denies: Hx Clostridium Difficile, Hx Hepatitis, Hx Human Immunodeficiency Virus (HIV), Hx of Known/Suspected MRSA, Hx Shingles, Hx Tuberculosis, Hx Known/ Suspected VRE, Hx Known/Suspected VRSA, History Other Infectious Disease, Traveled Outside the [place] in Last 30 Days - Family History Known Family History: Positive: Respiratory Disease - asthma in brother - Social History Alcohol Use: Occasionally Hx Substance Use: Yes Substance Use Type: Reports: Marijuana Substance Use Comment - Amount & Last Used: HX MARIJUANA USE in past Hx Tobacco Use: Yes - quit 2 weeks ago Smoking Status (MU): Current Every Day Smoker Type: Cigarettes Amount Used/How Often: 1 pk/wk Have You Smoked in the Last Year: Yes Review of Systems Positive: Vomiting, Nausea Positive: dysuria, flank pain - right Positive: Other - Positive - right lower back pain radiating from right flank Neurological: Other - Positive - dizziness All Other Systems Reviewed And Are Negative: Yes Physical Exam - Summary Physical Exam Summary: Appearance: Obese young woman, Well-appearing, Sitting on stretch in no acute distress Skin: Warm, dry, no obvious rash Eyes: sclera anicteric, no conjunctival pallor ENT: mucous membranes moist, pharynx appears normal Neck: Supple, nontender Respiratory: Clear to auscultation, no signs of respiratory distress Cardiovascular: Normal S1, S2. No murmurs. Normal distal pulses in tibial and radial bilaterally. Abdomen: Soft, nontender, normal active bowel sounds present Musculoskeletal: Focal lower right back tenderness, Strength/ROM Intact Neurological: A&Ox3, awake and alert, mentation is normal, speech is fluent and appropriate Psychiatric: affect is normal, does not appear anxious or depressed Triage Information Reviewed: Yes Vital Signs On Initial Exam: Initial Vitals Temp Pulse Resp BP Pulse Ox 98.4 F 88 14 129/91 99 12/21/18 07:16 12/21/18 07:16 12/21/18 07:16 12/21/18 07:16 12/21/18 07:16 Vital Signs Reviewed: Yes Diagnostics - Vital Signs Vital Signs Temp Pulse Resp BP Pulse Ox 12/21/18 07:16 98.4 F 88 14 129/91 99 - Laboratory Result Diagrams: 12/22/18 06:03 12/22/18 06:03 Lab Statement: Any lab studies that have been ordered have been reviewed, and results considered in the medical decision making process. - Radiology CXR Radiology Interpretation Completed By: Radiologist Summary of Radiographic Findings: No active cardiopulmonary disease. ED physician has reviewed this imaging report. - CT CT A/P CT Interpretation Completed By: Radiologist Summary of CT Findings: IMPRESSION: 1. 0.4 CM RIGHT UVJ CALCULUS WITH ASSOCIATED RIGHT-SIDED HYDRONEPHROSIS. 2. PATCHY NODULARITY OF THE LUNG BASES MEASURING UP TO 0.6 CM. IN THE ABSENCE OF A. HISTORY OF MALIGNANCY, IN THIS DEMOGRAPHIC, THIS IS LIKELY INFECTIOUS/INFLAMMATORY. RECOMMEND FOLLOW-UP [address] OF THE CHEST. 3. HEPATOMEGALY WITH FATTY INFILTRATION OF THE LIVER. ED Physician has reviewed this report. - Ultrasound No standard instances Ultrasound Interpretation Completed By: Radiologist Summary of Ultrasound Findings: IMPRESSION: #. Moderate RIGHT hydronephrosis of uncertain etiology. ED Physician has reviewed this report. Renal US Ultrasound Interpretation Completed By: Radiologist Summary of Ultrasound Findings: IMPRESSION: #. Moderate RIGHT hydronephrosis of uncertain etiology. ED Physician has reviewed this report. Re-Evaluation - Re-Evaluation First Eval Re-Evaluation Time: 10:00 Comment: I discussed results and need for admission with the patient. GIGU Course/Dx - Course Course Of Treatment: The pt is a 23 yr old female [facility]/o right flank pain beginning a few weeks ago with worsening early this morning. She has been feeling pain in her right flank with dysuria that has been manageable with ibuprofen, and her pain was alleviated by taking flexeril when it was first onset a few days ago. However, last night at 0400 while at work she had a dull back pain that worsened over time with returning right flank pain. At its worst point she was dizzy with nausea and vomiting. She describes the pain as the worst she has ever experienced with current pain rating at 9/10 in severity. She took flexeril while at work overnight but it did not help. She also reports feeling very cold but doesnt know if she has had fever. She has a Hx of kidney stones and sciatica. The physical exam was only notable for focal lower right back tenderness. Test results normal except for WBC @ 12.7, MPV @ 7.2, Absolute Neuts @ 10.4, Glucose @ 116, 1+ Urine Protein, 3 + Ur Leukocyte Esterase, 3+ Urine WBC, 3+ Urine RBC, Ur Squamous Epith Cells Present, 1+ Urine Bacteria, and *A Urine Ascorbic Acid. CXR reveals no active cardiopulmonary disease. A CT A/P reveals: 1. 0.4 CM RIGHT UVJ CALCULUS WITH ASSOCIATED RIGHT- SIDED HYDRONEPHROSIS. 2. PATCHY NODULARITY OF THE LUNG BASES MEASURING UP TO 0.6 CM. IN THE ABSENCE OF A HISTORY OF MALIGNANCY, IN THIS DEMOGRAPHIC, THIS IS LIKELY INFECTIOUS/INFLAMMATORY. RECOMMEND FOLLOW-UP [address] OF THE CHEST. 3. HEPATOMEGALY WITH FATTY INFILTRATION OF THE LIVER. A Renal US reveals: 1. Moderate RIGHT hydronephrosis of uncertain etiology. In the ED course the pt was given 1000 mls fluids IV, 50 mls Ceftriaxone IVPB, 10mg Toradol IV, and [address] Moscoso was consulted @ 0987, and he states that the patient can be admitted with repeat UA. Repeat UA reveals 2+ blood, 3+ Leukocyte esterase, 3+ WBCs, 2+ RBCs, presence of squamous epithelial cells, and ascorbic acid. The pt was diagnosed with kidney stones and UTI, and Dr. Mccarty will admit the pt to [facility] with agreement for OBV admission at 1035. Pt agrees with this plan. - Diagnoses Provider Diagnoses: Kidney stone, UTI (urinary tract infection) - Physician Notifications Discussed Care Of Patient With: Ananya Mccarty - Dr. Mccarty with admit the pt Time Discussed With Above Provider: 10:35 Instructed by Provider To: Admit As Observation - At 0945, I discussed the pt's case with Dr. Moscoso, urology, and he reports that the pt can be admitted. Dr. Mccarty accepts the patient for admission at 1035. Discharge - Sign-Out/Discharge Documenting (check all that apply): Patient Departure - Admit Patient Received Moderate/Deep Sedation with Procedure: No - Discharge Plan Condition: Improved Disposition: ADMITTED TO [facility] - Billing Disposition and Condition Condition: IMPROVED Disposition: Admitted to [facility] - Attestation Statements Document Initiated by Saroj: Yes Documenting Scribe: Yann Niño Provider For Whom Saroj is Documenting (Include Credential): Javier Montgomery MD Scribe Attestation: IYann, scribed for Javier Montgomery MD on 12/23/18 at 0432. Scribe Documentation Reviewed: Yes Provider Attestation: The documentation as recorded by the Yann whitman accurately reflects the service I personally performed and the decisions made by me, Javier Montgomery MD Status of Scribse Document: Viewed
[2018-12-21 07:45] LABS: Urine Appearance Cloudy; Urine Bacteria 1+ (Absent); Urine Bilirubin Negative (Negative); Urine Blood Negative (Negative); Urine Color Yellow; Urine Glucose Negative (Negative); Urine Ketones Negative (Negative); Urine Nitrite Negative (Negative); Urine Protein 1+(30 mg/dL) (Negative); Urine Red Blood Cell 3+(>10/hpf) (Absent); Urine Specific Gravity 1.027 (1.010-1.030); Urine Squamous Epithelial Cell Present (Absent); Urine Urobilinogen Negative (Negative); Urine White Blood Cell 3+(>20/hpf) (Absent)
[2018-12-21 07:53] LABS: ALT 26 U/L (7-52); AST 18 U/L (13-39); Albumin 4.6 g/dL (3.2-5.2); Albumin/Globulin Ratio 1.6 (1-3); Alkaline Phosphatase 85 U/L (34-104); Anion Gap 7 mmol/L (2-11); BUN/Creatinine Ratio 12.5 (8-20); Blood Urea Nitrogen 10 mg/dL (6-24); CO2 Carbon Dioxide 25 mmol/L (22-32); Calcium 9.5 mg/dL (8.6-10.3); Chloride 107 mmol/L (101-111); EGFR African American 106.6 (>60); EGFR Non-African American 88.1 (>60); Globulin 2.8 g/dL (2-4); Glucose 116 mg/dL (70-100); Potassium 3.8 mmol/L (3.5-5.0); Sodium 139 mmol/L (135-145); Total Protein 7.4 g/dL (6.4-8.9)
[2018-12-21 08:00] LABS: HCG Pregnancy < 0.60 mIU/mL
[2018-12-21] MEDS ORDERED: NS 0.9% 1000 ML** 1,000 ML IV ONE (08:00)
[2018-12-21] MEDS ORDERED: Ketorolac INJ* 30 MG/ML 1 ML VIAL IV PUSH ONE (08:00)
[2018-12-21] MEDS ORDERED: cefTRIAXone(*) 1 GM in NS 0.9% 50 ML* 50 ML IVPB ONE (08:00)
[2018-12-21 10:46] LABS: Urine Appearance Cloudy; Urine Bacteria Absent (Absent); Urine Bilirubin Negative (Negative); Urine Blood 2+ (Negative); Urine Color Yellow; Urine Glucose Negative (Negative); Urine Ketones Negative (Negative); Urine Nitrite Negative (Negative); Urine Protein Negative (Negative); Urine Red Blood Cell 2+(6-10/hpf) (Absent); Urine Specific Gravity 1.014 (1.010-1.030); Urine Squamous Epithelial Cell Present (Absent); Urine Urobilinogen Negative (Negative); Urine White Blood Cell 3+(>20/hpf) (Absent)
[2018-12-21] MEDS ORDERED: Al Hydrox/Mg Hydrox/Simet LIQ* 30 ML UDC PO PRN (11:07)
[2018-12-21] MEDS ORDERED: Morphine INJ* 2 MG/ML 1 ML SYRINGE (TWO MG - NEW SYRINGE VERSION) IV PRN ×2 (11:07→14:15)
[2018-12-21] MEDS ORDERED: Acetaminophen TAB* 325 MG PO PRN (11:07)
[2018-12-21] MEDS ORDERED: oxyCODONE/Acetamin 5/325 MG* TAB PO PRN (11:07)
[2018-12-21] MEDS ORDERED: Ondansetron INJ* 2 MG/ML VIAL IV PRN (11:07)
[2018-12-21] MEDS ORDERED: Albuterol HFA INHALER* 8 gm MDI INH PRN (11:12)
[2018-12-21] MEDS ORDERED: Mirtazapine TAB* 15 MG PO PRN (11:12)
--- NOTE | 2018-12-21 13:55 | HP ---
CC: Dr. Shea Toussaint; Dr. Moscoso * HISTORY AND PHYSICAL: DATE OF ADMISSION: 12/21/18 PRIMARY CARE PROVIDER: Dr. Shea Toussaint. CHIEF COMPLAINT: Right flank pain. HISTORY OF PRESENT ILLNESS: Ashanti Herr is a 23-year-old female with history of asthma, depression, obesity who presented to the hospital complaining of right- sided flank pain as well as intermittent hematuria for the past several days. The patient stated that initially the flank pain was just a dull pain, but in the past 24 hours it has become more severe. She noted intermittent/ scant blood in her urine. Her urinalysis is grossly positive for UTI. A CT of the abdomen showed right-sided hydronephrosis with 4 mm ureteral stone. She is going to be placed on overnight observation with a diagnosis of hydronephrosis and likely pyelonephritis. PAST MEDICAL HISTORY: 1. History of asthma. 2. Migraines. 3. Depression. 4. Obesity. 5. History of depression with suicidal ideation and hospitalization at the end of 2018 for that. MEDICATIONS: At home includes: 1. Singulair 10 mg daily. 2. Tina 180 mg daily. 3. Albuterol inhaler on a p.r.n. basis. 4. Abilify 10 mg a day. 5. Protonix 20 mg daily. 6. Remeron 30 mg at bedtime p.r.n. 7. [place] 600 mg b.i.d. 8. Vyvanse 70 mg daily. 9. Advair 500/50 one inhalation b.i.d. 10. Valtrex 500 mg daily. ALLERGIES: METOCLOPRAMIDE. FAMILY HISTORY: Mother with hypertension. Brother with asthma. SOCIAL HISTORY: The patient smokes 1 pack per day, she started when she was 17. She denies any alcohol or drug use. She lives at home with her male significant other and two children. As a surrogate, she names her fiance, Bharat Danielle, and her mother, Ana Herr. REVIEW OF SYSTEMS: Please see history of present illness. In addition to above mentioned, the patient stated that she has been coughing with occasional green sputum production for the past several days. She denies any fevers. All the remaining 12 systems were reviewed with the patient and were otherwise negative. PHYSICAL EXAMINATION VITAL SIGNS: Blood pressure is 108/65, heart rate of 84 and regular, respiratory rate 16, oxygen saturation 95% on room air, temperature 98.4. Heart rate max was 98 beats per minutes. HEENT: Head: Atraumatic, normocephalic. Eyes: Pupils are equal, reactive to light and accommodation. Oropharynx is clear. Mucosa is moist. NECK: Supple. No JVD. No bruits bilaterally. RESPIRATORY: Coarse rhonchi at bilateral mid lung harmon. CARDIOVASCULAR: Regular rate and rhythm. No murmur. ABDOMEN: Soft, nontender. Bowel sounds are present in all 4 quadrants. BACK: On evaluation of the back, the patient has right-sided CVA tenderness. EXTREMITIES: There is no edema. Pulses are +2 bilaterally. No clubbing or cyanosis. NEURO EVALUATION: Speech is clear. Cranial nerves II through XII are grossly intact. Motor strength is 5/5 bilaterally. PSYCHIATRIC EVALUATION: Oriented x3 with no evidence of anxiety or depression. DIAGNOSTIC STUDIES/LAB DATA: Laboratory data showed white blood cell count was actually 12.7, hemoglobin of 13.2, hematocrit of 40, and platelets of 298. Sodium was 139, potassium 3.8, chloride 107, carbon dioxide 25, BUN 10, creatinine 0.8. Liver function is unremarkable. Beta HCG below detectable. Urinalysis obtained of the straight cath shows +3 esterase, +3 wbc's, +2 rbc's, +[address] of the abdomen and pelvis, impression: "A 4 mm right UVJ calculus with associated right-sided hydronephrosis. Patchy nodularity of the lung base measuring up to 0.6 cm. In the absence of history of malignancy and is demographic, this is likely infectious and inflammatory process. Recommend followup in one month of the CT of the chest. Hepatomegaly with fatty inflation of the liver." Chest x-ray is pending at the time of dictation. Renal ultrasound showed right-sided hydronephrosis. ASSESSMENT AND PLAN: 1. A 23-year-old female with history of depression, who presents with right- sided hydronephrosis due to 4 mm stone as well as urinary tract infection/ pyelonephritis. The patient is going to be placed on ceftriaxone. She is septic on admission with her heart rate and leukocytosis. Blood cultures and lactic acid are going to be obtained. She is going to be placed on intravenous hydration and we will ask nursing staff to strain the patient's urine. The case was discussed between the ED provider, Dr. Montgomery, and our urology excellence consultant, Dr. Moscoso. As per the report that I got from Dr. Montgomery, for the time being, there is no need for urgent intervention. We will continue treatment with intravenous antibiotics and pain management. Unlikely, the patient will be able to pass the stone. 2. In regards to the patient's depression, the patient's outpatient medications are going to be continued. 3. In regards to the patient's asthma as well as 6 mm nodule in the right lung. The patient was informed about the nodule. It is likely inflammatory. She had been coughing for quite sometime now. A portable chest x-ray is going to be obtained. For her smoking, she is going to be placed on nicotine patch. She was advised about harmful effects of smoking and strongly encouraged to stop. 4. For DVT prophylaxis, the patient is low risk and ambulation is going to be encouraged. 5. The patient's code status is full. Her surrogate is her boy friend as well as her mother as mentioned above. TIME SPENT: Approximately 65 minutes was spent on admission of this patient, more than half of that time was spent [id number] with the patient during the interview and physical exam. [id number]/[facility] #: [id number] CANDY
[2018-12-21] MEDS: Nicotine PATCH 21 MG/24 HR* PATCH TRANSDERM SCH (13:59)
[2018-12-21] MEDS ORDERED: Ketorolac INJ* 30 MG/ML 1 ML VIAL IV ONE (14:13)
[2018-12-21] MEDS ORDERED: Iohexol 180 (CONTRAST) 10 ML SDV IV ONE (14:56)
[2018-12-21] MEDS ORDERED: fentaNYL* 50 MCG/ML 2 ML VIAL (100 MCG VIAL) ONE (16:33)
[2018-12-21] MEDS ORDERED: Rocuronium* 10 MG/ML VIAL ONE (16:33)
[2018-12-21] MEDS ORDERED: Lidocaine 2% PF * 5 ML VIAL ONE (16:34)
[2018-12-21] MEDS ORDERED: Metoclopramide IV* 5 MG/ML 2 ML VIAL ONE (16:34)
[2018-12-21] MEDS ORDERED: Propofol* 10 MG/ML 20 ML BTL ONE (16:34)
[2018-12-21] MEDS ORDERED: cefTRIAXone(*) 1 GM ADVAN/BAG ONE (16:34)
[2018-12-21] MEDS ORDERED: Succinylcholine* 20 MG/ML 10 ML VIAL ONE (16:34)
[2018-12-21] MEDS ORDERED: Sodium Citrate/Citric Acid* 15 ML UDC ONE (16:36)
[2018-12-21] MEDS ORDERED: Sodium Citrate/Citric Acid* 15 ML UDC PO ONE ×2 (16:40→17:00)
[2018-12-21] MEDS ORDERED: Midazolam* 1 MG/ML 2 ML VIAL (2 MG) ONE (16:47)
[2018-12-21] MEDS ORDERED: Dexamethasone IV* 4 MG/ML 1 ML (4 MG) ONE (16:48)
[2018-12-21] MEDS ORDERED: DiMENhydriNATE IV* 50 MG/ML VIAL IV PUSH PRN (18:02)
[2018-12-21] MEDS ORDERED: Naloxone* 0.4 MG/ML 1 ML VIAL IV PRN (18:02)
[2018-12-21] MEDS: Mometasone/Formoter 200/5 MDI INH SCH (19:32)
[2018-12-21] MEDS: oxyCODONE/Acetamin 5/325 MG* TAB PO PRN (19:44)
[2018-12-21] MEDS: CMC:Lithium Carbonate ER (NF) 300 MG TAB.ER PO SCH (19:45)
[2018-12-21] MEDS: Docusate CAP* 100 MG PO SCH (19:45)
[2018-12-21] MEDS: cefTRIAXone(*) 1 GM in NS 0.9% 50 ML* 50 ML IVPB SCH (20:49)
[2018-12-21] MEDS: NS 0.9% 1000 ML** 1,000 ML IV SCH (20:49)
[2018-12-21] MEDS ORDERED: Nicotine Patch Removal NOTE PATCH OFF SCH (21:00)
--- NOTE | 2018-12-21 23:08 | OP ---
DATE OF OPERATION: 12/21/18 - ROOM #419 DATE OF : 89 SURGEON: Dr. Moscoso. ANESTHESIOLOGIST: Dr. Nadeem Baca. ANESTHESIA: General. PRE-OP DIAGNOSES: 1. Right renal colic. 2. Distal right ureteral calculus. 3. Urinary tract infection. POST-OP DIAGNOSES: 1. Right renal colic. 2. Distal right ureteral calculus. 3. Urinary tract infection. OPERATIVE PROCEDURES: 1. Cystoscopy. 2. Right retrograde pyelography. 3. Right ureteroscopy and extraction of right ureteral calculus. 4. Insertion of right ureteral stent (6-Burmese). INDICATION FOR PROCEDURE: Ms. Herr is a 23-year-old white female who has been having right flank pain for the last week. Yesterday, the pain became a lot worse and was associated with some chillness, but no fever. She presented to the emergency room where she was afebrile and the vital signs were normal. Non-contrast CT of the abdomen and pelvis showed a 4- to 5-mm calculus in the distal right ureter with associated right hydronephrosis, hydroureter and tortuosity of the ureter. No other abnormalities were noted. Urinalysis was positive for infection. Her white count was moderately elevated at 13,000. The patient was given IV Rocephin. She was taken to the operating room for right ureteral stent insertion. PATHOLOGY:at cystoscopy the bladder mucosa showed hyperemia consistent with changes of cystitis. There were no suspicious bladder lesions seen. No calculi or diverticula were noted. There was a single ureteral orifice on each side. Upon right retrograde pyelography, there was right hydronephrosis and there was tortuosity and dilatation of the proximal ureter and right hydronephrosis. The urine from the right kidney looked concentrated, but did not look infected. DESCRIPTION OF PROCEDURE: After successful general anesthesia, the patient was placed in the lithotomy position and was prepped and draped for a cystoscopy. Cystoscopy was performed. The bladder was inspected and the above findings were noted. A flexible tip guidewire was then introduced into the right orifice. There was some resistance in the distal right ureter at the level of the stone. The guidewire was successfully introduced into the area of the proximal ureter. At that level, there was tortuosity that could not be bypassed with the guidewire. The open-ended catheter was then fed on top of the guidewire and positioned in the area of the proximal ureter. Contrast was injected delineating the tortuosity and dilatation of the ureter and of the right hydronephrosis. A glidewire was then introduced through the open-ended catheter and after several attempts, was successfully introduced inside the renal pelvis and the tortuosity of the ureter was straightened. The glidewire was then replaced with a guidewire. The open- ended catheter was then positioned inside the renal pelvis. The collecting system was decompressed and the urine was inspected and it looked concentrated, but not infected. Because of that finding and the fact the calculus is small and located distally , it was decided to proceed with ureteroscopy. The column of irrigation fluid was lowered to the level of the table to decrease the pressure of the irrigation fluid. A size 6.5 semi- rigid ureteroscope was introduced inside the bladder. A flexible tip basket was introduced to the lumen of the ureteroscope and its flexible tip was then introduced inside the right orifice alongside the guidewire. That allowed the atraumatic introduction of the uteroscope inside the right ureter. Minimal irrigation was used just enough to visualize the lumen. The calculus was then identified. It was engaged with the basket and was pulled out with minimal trauma to the ureter. The cystoscope was then reintroduced over the guidewire. A size 6-Burmese stent was then placed with the proximal end coiling in the renal pelvis and the distal end coiling inside the bladder. There was good drainage of contrast from the kidney and no extravasation. The patient tolerated the procedure well and left the operating room in good condition. The plan is to keep the patient overnight for additional intravenous antibiotics and observation. The plan will be to remove the stent in about 7 to 10 days as an outpatient. [id number]/[facility] #: [id number] [facility]
[2018-12-22] MEDS: oxyCODONE/Acetamin 5/325 MG* TAB PO PRN ×3 (00:49→09:54)
[2018-12-22 06:30] LABS: ABS Basophils 0.1 10^3/ul (0-0.2); ABS Lymphocytes 0.7 10^3/ul (1.0-4.8); ABS Monocytes 0.3 10^3/ul (0-0.8); ABS Neutrophils 7.4 10^3/ul (1.5-7.7); Eosinophil % 0.1 %; Hematocrit 34 % (35-47); Lymphocyte % 8.7 %; Mean Corpuscular HGB Conc 33 g/dL (31-36); Mean Corpuscular Hemoglobin 29 pg (27-31); Mean Corpuscular Volume 88 fL (80-97); Mean Platelet Volume 8.1 fL (7.4-10.4); Platelet Count 215 10^3/uL (150-450); Red Blood Count 3.85 10^6 /uL (3.70-4.87); Red Cell Distribution Width 14 % (10-15); White Blood Count 8.6 10^3/uL (3.5-10.8)
[2018-12-22 06:57] LABS: Albumin 3.7 g/dL (3.2-5.2); Albumin/Globulin Ratio 1.5 (1-3); BUN/Creatinine Ratio 14.8 (8-20); Calcium 8.5 mg/dL (8.6-10.3); EGFR African American 145.8 (>60); EGFR Non-African American 120.5 (>60); Globulin 2.4 g/dL (2-4); Potassium 4.5 mmol/L (3.5-5.0); Total Bilirubin 0.2 mg/dL (0.2-1.0); Total Protein 6.1 g/dL (6.4-8.9)
[2018-12-22] MEDS: Mometasone/Formoter 200/5 MDI INH SCH (07:40)
[2018-12-22] MEDS: NS 0.9% 1000 ML** 1,000 ML IV SCH (08:02)
[2018-12-22] MEDS: cefTRIAXone(*) 1 GM in NS 0.9% 50 ML* 50 ML IVPB SCH (08:07)
[2018-12-22] MEDS: Docusate CAP* 100 MG PO SCH (08:10)
[2018-12-22] MEDS: CMC:Lithium Carbonate ER (NF) 300 MG TAB.ER PO SCH (08:10)
[2018-12-22] MEDS: Nicotine PATCH 21 MG/24 HR* PATCH TRANSDERM SCH (08:11)
[2018-12-22] MEDS ORDERED: ARIPiprazole TAB* 5 MG PO SCH (09:00)
[2018-12-22] MEDS ORDERED: LISDEXAMFETAMINE 10 MG PO SCH (09:00)
[2018-12-22] MEDS ORDERED: Montelukast Sodium TAB* 10 MG PO SCH (09:00)
[2018-12-22] MEDS ORDERED: Pantoprazole TAB * 40 MG TAB PO SCH (09:00)
[2018-12-22 10:35] VITALS: BP 111/58
--- NOTE | 2018-12-22 11:21 | DS ---
CC: Shea Suazo NP, Dr. Moscoso * DISCHARGE SUMMARY: DATE OF ADMISSION: 12/21/18 DATE OF DISCHARGE: 12/22/18 PRIMARY CARE PROVIDER: Shea Suazo NP with Dr. Levine. UROLOGY: Dr. Moscoso DISPOSITION: Discharged to home. CONDITION ON DISCHARGE: Stable. DISCHARGE DIAGNOSES: 1. Sepsis due to urinary tract infection. 2. Right-sided hydronephrosis due to 4 mm right ureteral calculus status post cystoscopy and right ureteral stent placement by Dr. Moscoso on 12/21/18. MEDICATIONS AT DISCHARGE: Include: 1. Albuterol inhaler on a p.r.n. basis. 2. Abilify 10 mg daily. 3. Tina 180 mg daily. 4. Vyvanse 70 mg daily. 5. Remeron 30 mg at bedtime. 6. Singulair 10 mg daily. 7. Protonix 20 mg daily. 8. Valtrex 500 mg daily. 9. Cefdinir 300 mg b.i.d. for a total of 7 days and stop. 10. Advair 500/50 one inhalation b.i.d. 11. [place]eteet[place] carbonate ER 600 mg b.i.d. 12. Nicotine patch 21 mg per day. LABORATORY DATA AND STUDIES PERFORMED DURING THE HOSPITAL STAY: Include: On 06/11, white blood cell count of 8.6, hemoglobin of 11.0, hematocrit of 34, and platelets of 215. Sodium was 138, potassium 4.5, chloride 112, carbon dioxide 20, BUN 9, creatinine 0.61. Liver function tests unremarkable. The patient's urinalysis was positive for esterase, wbc's, epithelial cells, and +2 blood. The patient's abdomen, pelvis CT obtained on 12/21/18, impression: "0.4 cm right UVJ calculus with associated right-sided hydronephrosis. Patchy nodularity of the lung base measuring up to 0.6 cm. In the absence of history of malignancy and its demographics, it is likely infectious inflammatory process. I would recommend followup in [address] of the chest. Hepatomegaly with fatty infiltration of the liver." PROCEDURES PERFORMED DURING THE HOSPITAL STAY: Included cystoscopy and right ureteral stent placement by Dr. Moscoso on 12/21/18. HOSPITALIZATION COURSE: Ashanti Herr is a 23-year-old female with history of asthma and depression with suicidal ideation in the past who presented to the hospital complaining of right flank pain and dysuria. The patient was noted to have right-sided ureteral calculus with hydronephrosis as well as being septic due to UTI. The patient was started on antibiotics. Dr. Moscoso took the patient for cystoscopy and stent placement on the right side. For the past 24 hours, her leukocytosis resolved; she had been afebrile. She still continues to have slight discomfort in the right flank and a sensation of "feeling descent " when she urinates, but otherwise she feels much better and she is ready to go home. Please note that the patient had a nodularity noted on her CT of the abdomen, but there was nodularity in the right lung. The patient has had troubles with asthma and smoking and she had been coughing recently. She had coarse breath sounds on evaluation at admission and somewhat improved by the time of discharge. Her portable chest x-ray was unremarkable at admission. She was advised to stop smoking and nicotine patch was prescribed. She is going to be discharged home. For followup, she is recommended: 1. To follow up with her nurse practitioner, Shea Suazo, for followup of the patient's urine cultures and blood cultures, which have not resulted yet. 2. The patient also recommended to follow up with a CT of her chest in regards to right lung nodularity noted on the initial CT. That CT is to be done in approximately 1 month. 3. The patient is recommended to follow up with Dr. Moscoso in regards to stent removal in 7 to 10 days and she was advised to call Dr. Moscoso's office to schedule the appointment. PHYSICAL EXAM AT THE TIME OF DISCHARGE: Blood pressure of 113/51, heart rate of 62 and regular, respiratory rate 16, oxygen saturation 96% on room air, temperature 97.9. General: The patient is a very pleasant 23-year-old obese female who is in no acute distress. Alert, awake, and oriented x3. HEENT: Head: Atraumatic, normocephalic. Eyes: Pupils are equal, reactive to light and accommodation. Oropharynx is clear. Mucosa moist. Neck: Supple. No JVD. No bruits bilaterally. Cardiovascular: Regular rate and rhythm. No murmur. Respiratory: Coarse breath sounds at bilateral bases, otherwise clear. Abdomen: Soft, nontender. Bowel sounds are present in all 4 quadrants. No CVA tenderness on evaluation. Extremities: There is no edema. Pulses are +2 bilaterally. No clubbing or cyanosis. Please note that this is a short summary of the patient's hospital stay. Please refer to further medical records for details. TIME SPENT: Approximately 35 minutes was spent in preparation of the patient's discharge. [id number]/[facility] #: [id number] [facility]
== END 2018-12-22 11:00 | disposition home or self-care (01) ==
LOC: ED 07:12 → SSU 11:07 → MED 12:14
PROVIDERS: ADMIT Internal Medicine; ATTEND Internal Medicine
PROC: 0TC68ZZ Extirpation of Matter from Right Ureter, Via Natural or Artificial Opening Endoscopic (ICD-10-PCS; principal; 2018-12-21 16:30)
DX: A41.9 Sepsis, unspecified organism (principal); N39.0 Urinary tract infection, site not specified; N13.6 Pyonephrosis; J45.909 Unspecified asthma, uncomplicated; G43.909 Migraine, unspecified, not intractable, without status migrainosus; F32.9 Major depressive disorder, single episode, unspecified; E66.9 Obesity, unspecified; F17.210 Nicotine dependence, cigarettes, uncomplicated; Z79.899 Other long term (current) drug therapy; Z88.8 Allergy status to other drugs, medicaments and biological substances
CPT/HCPCS: 36415; 71045; 74176; 74420; 76775; 80053; 81003; 81015; 82365; 83605; 84702; 85025; 87040; 87086; 88300; 94640; 96361; 96365; 96366; 96375; 96376; 99284; A9270-GY; C1876; G0378; J0330; J0696; J1100; J1885; J2250; J2270; J2704; J2765; J3010

== ENCOUNTER 2019-02-16 15:32 | Emergency (ER) | payer OTHER ==
[2019-02-16 15:43] VITALS: BP 127/86
[2019-02-16] MEDS ORDERED: Albuterol 2.5 MG/3 ML NEB.SOL* (0.083%) INH ONE ×2 (15:49→16:42)
[2019-02-16] MEDS ORDERED: Albuterol/Ipratropium NEB.SOL* Albuterol 2.5 MG/Ipratropium 0.5 MG 3 ML INH ONE (15:52)
[2019-02-16] MEDS ORDERED: methylPREDNISolone 125 MG* 2 ML VIAL IM ONE (15:56)
--- NOTE | 2019-02-16 15:57 | UC ---
Respiratory Complaint HPI - HPI Summary HPI Summary: 24 yo female presents with SOB and cough. She tells me that she has a long history of moderate to severe asthma and has seen Asthma and Allergy in the past for this. She is on advair and an albuterol rescue inhaler and nebulizer. About 3 weeks ago she noticed she was getting more short of breath than usual and had increased wheezing. Over the last week her symptoms have worsened and she has increased wheezing, persistent dry cough, and SOB with light to moderate activities. She is out of the solutions for her nebulizer, thus has not been using it. She has been using her advair and albuterol HFA with good short term relief. She is still smoking daily. She also mentions that she felt a muscle pull in her mid/lower back during one of her coughing episodes and has continued to cause her discomfort with movements. Ibuprofen not helping. Denies fever, chills, sinus symptoms, sore throat, chest pain, abdominal pain, n/v, numbness, tingling, saddle anesthesia, or loss of bowel/bladder control. No dysuria. - History of Current Complaint Chief Complaint: UCRespiratory Stated Complaint: ASTHMA, COUGHING, AND BACK PAIN Time Seen by Provider: 02/16/19 15:51 Hx Obtained From: Patient Hx Last Menstrual Period: [id number] Onset/Duration: Gradual Onset Severity Initially: Mild Severity Currently: Moderate Pain Intensity: 7 Pain Scale Used: 0-10 Numeric Character: Cough: Nonproductive - Allergies/Home Medications Allergies/Adverse Reactions: Allergies Allergy/AdvReac Type Severity Reaction Status Date / Time metoclopramide [From Reglan] Allergy Itching Verified 02/16/19 15:43 Home Medications: Home Medications Amphetamine MIXED SALTS TAB* [Adderall TAB*] 30 mg PO DAILY 02/16/19 [History Confirmed 02/16/19] Fluticasone-Salmeterol 250-50* [Advair Diskus 250-50*] 1 puff INH BID 02/16/19 [ History Confirmed 02/16/19] PMH/Surg Hx/FS Hx/Imm Hx Respiratory History: Asthma Psychological History: Anxiety, Depression, Bipolar Disorder Other History Of: Negative For: Anticoagulant Therapy - Surgical History Surgical History: Yes Surgery Procedure, Year, and Place: Right arm reset as a child under anesthesia. - Family History Known Family History: Positive: Respiratory Disease - asthma in brother - Social History Lives: With Family Alcohol Use: Occasionally Substance Use Type: Marijuana Substance Use Comment - Amount & Last Used: HX MARIJUANA USE in past Smoking Status (MU): Light Every Day Tobacco Smoker Type: Cigarettes Amount Used/How Often: 1 pk/wk Have You Smoked in the Last Year: Yes When Did the Patient Quit Smoking/Using Tobacco: 05/30/2014 - Immunization History Most Recent Influenza Vaccination: Fall 2015 Most Recent Tetanus Shot: 11/06/14 Most Recent Pneumonia Vaccination: none Review of Systems All Other Systems Reviewed And Are Negative: No Constitutional: Positive: Negative Skin: Positive: Negative Eyes: Positive: Negative ENT: Positive: Negative Respiratory: Positive: Shortness Of Breath, Cough Cardiovascular: Positive: Negative Gastrointestinal: Positive: Negative Neurovascular: Positive: Negative Neurological: Positive: Negative Psychological: Positive: Negative Physical Exam - Summary Physical Exam Summary: GENERAL: NAD. WDWN. No pain distress. SKIN: No rashes, sores, lesions, or open wounds. HEENT: Head: AT/NC Eyes: Conjunctiva clear without inflammation or discharge. Ears: Hearing grossly normal. TMs intact, no bulging, erythema, or edema. Nose: Nasal mucosa pink and moist. NTTP maxillary and frontal sinus. Throat: Posterior oropharynx without exudates, erythema, or tonsillar enlargement. Uvula midline. NECK: Supple. Nontender. No lymphadenopathy. CHEST: Moderate wheezing throughout. No accessory muscle use. Slight increased work of breathing. CV: RRR. Without m/r/g. Pulses intact. Cap refill <2seconds MSK: Mild TTP thoracic paraspinal muscles. Pain reproduced with truncal twisting. FROM UEs and LEs NEURO: Alert. PSYCH: Age appropriate behavior. Triage Information Reviewed: Yes Vital Signs: Initial Vital Signs Temp 99.0 F 02/16/19 15:37 Pulse 118 02/16/19 15:37 Resp 24 02/16/19 15:37 BP 127/86 02/16/19 15:37 Pulse Ox 91 02/16/19 15:37 Vital Signs Reviewed: Yes Diagnostics - Radiology CXR Radiology Interpretation Completed By: Radiologist Respiratory Course/Dx - Course Course Of Treatment: CXR as above. Suspect asthma exacerbation. In the clinic, pt was given a duoneb treatment and 125mg IM of solumedrol and had mild improvement of her wheezing and lung sounds improved. She was given another nebulizer treatment with albuterol only and this further improved her symptoms. She reported easier to breathe and she did not feel like she had to work to get a deep breath. Her O2% was 93-94% resting. She was walked on RA and O2% remained 93-94% with no desaturations. Looking back at her recent visit history, she has been around 91-94% O2% on RA since about 06/2018 - this is likely her baseline. She does not appear in any distress at rest or with ambulation. I had a long discussion with her about cutting back/quitting smoking as this will significantly improve her asthma. Also will refer her to pulm for further treatment. She is currently on advair 250/50, but has been on 500/50 in bursts when she has exacerbations in the past and felt that her asthma was much better controlled on the 500/50 dose. Will rx for advair 500/50 to take BID for 7 days in addition to prednisone for 5 days. Refill for her albuterol HFA and albuterol neb solutions. - Differential Dx/Diagnosis Provider Diagnosis: Asthma exacerbation, Muscle spasm Discharge ED - Sign-Out/Discharge Documenting (check all that apply): Patient Departure All imaging exams completed and their final reports reviewed: Yes - Discharge Plan Condition: Stable Disposition: HOME Prescriptions: Albuterol 2.5MG/3ML (0.083%)* [Ventolin 2.5 MG/3 ML NEB.[place]*] 2.5 mg INH Q6H PRN #30 [email or web address] PRN Reason: Wheezing Albuterol HFA INHALER* [Ventolin HFA Inhaler*] 1 puff INH Q6H PRN #1 mdi PRN Reason: Sob/Wheezing Cyclobenzaprine TAB* [Flexeril 10 MG TAB*] 10 mg PO BID PRN #14 tab PRN Reason: Pain - Moderate Fluticasone-Salmeterol 500-50* [Advair Diskus 500-50*] 1 puff INH BID #1 diskus predniSONE TAB* [Deltasone TAB*] 50 mg PO DAILY #5 tab Patient Education Materials: Asthma (ED) Forms: *Work Release Referrals: Markus Levine MD [Primary Care Provider] - Becka Martin MD [Medical Doctor] - As Soon As Possible Additional Instructions: If you develop a fever, shortness of breath, chest pain, new or worsening symptoms - please call your PCP or go to the ED immediately. 1) Start the prednisone tomorrow as directed 2) I recommend that you see your Asthma and Allergy doctor or schedule an appointment with a Enrolled Agent at the number below 3) Use the advair 500/50 twice a day for 7 days and then go back to your 250/50 dose as directed - Billing Disposition and Condition Condition: STABLE Disposition: Home
== END 2019-02-16 17:25 | disposition home or self-care (01) ==
LOC: UCEAST 15:32
DX: J45.901 Unspecified asthma with (acute) exacerbation (principal); M62.830 Muscle spasm of back; R05 Cough; Z88.8 Allergy status to other drugs, medicaments and biological substances; F17.210 Nicotine dependence, cigarettes, uncomplicated
CPT/HCPCS: 71046; 96372; 99213; A9270-GY; G0463; J2930

== ENCOUNTER 2019-03-12 16:26 | Observation (INO) | payer OTHER ==
[2019-03-12] MEDS ORDERED: Magnesium Sulfate 2 GM IV* 2 GM/50 ML BAG IV ONE (17:38)
[2019-03-12] MEDS ORDERED: Albuterol/Ipratropium NEB.SOL* Albuterol 2.5 MG/Ipratropium 0.5 MG 3 ML INH ONE ×3 (17:38→19:47)
[2019-03-12] MEDS ORDERED: methylPREDNISolone 125 MG* 2 ML VIAL IV ONE (17:38)
--- NOTE | 2019-03-12 17:41 | ED ---
Shortness of Breath - HPI Summary HPI Summary: 24 year old female presents with shortness of breath for the past 3 days. She states that about a 2 weeks ago she had issues with her asthma that seemed to get better. She states though past week she's been using her nebulizer treatments without any relief. She denies any chest pain. She admits to shortness breath. No bowel pain. No nausea or vomiting. No fevers. No sinus congestion. No sore throat. No one else around her is ill. She denies any recent travel. She is a smoker. - History of Current Complaint Chief Complaint: EDShortnessOfBreath Time Seen by Provider: 03/12/19 17:31 - Allergy/Home Medications Allergies/Adverse Reactions: Allergies Allergy/AdvReac Type Severity Reaction Status Date / Time metoclopramide [From Reglan] Allergy Itching Verified 02/16/19 15:43 PMH/Surg Hx/FS Hx/Imm Hx Endocrine/Hematology History: Denies: Hx Anticoagulant Therapy, Hx Diabetes, Hx Thyroid Disease Cardiovascular History: Denies: Hx Hypertension, Hx Pacemaker/ICD Respiratory History: Reports: Hx Asthma, Hx Pneumonia, Hx Seasonal Allergies Denies: Hx Chronic Obstructive Pulmonary Disease (COPD) GI History: Denies: Hx Ulcer History: Reports: Hx Kidney Stones Denies: Hx Renal Disease Sensory History: Reports: Hx Contacts or Glasses Denies: Hx Hearing Aid Opthamlomology History: Reports: Hx Contacts or Glasses Neurological History: Reports: Hx Migraine, Other Neuro Impairments/Disorders - Vertigo Denies: Hx Dementia, Hx Seizures Psychiatric History: Reports: Hx Anxiety - on prozac, Hx Attention Deficit Hyperactivity Disorder, 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 - Immunization History Date of Tetanus Vaccine: up to date per pt Infectious Disease History: No Infectious Disease History: Denies: Hx Clostridium Difficile, Hx Hepatitis, Hx Human Immunodeficiency Virus (HIV), Hx of Known/Suspected MRSA, Hx Shingles, Hx Tuberculosis, Hx Known/ Suspected VRE, Hx Known/Suspected VRSA, History Other Infectious Disease, Traveled Outside the [place] in Last 30 Days - Family History Known Family History: Positive: Respiratory Disease - asthma in brother - Social History Alcohol Use: Occasionally Hx Substance Use: Yes Substance Use Type: Reports: Marijuana Substance Use Comment - Amount & Last Used: HX MARIJUANA USE in past Hx Tobacco Use: Yes - quit 2 weeks ago Smoking Status (MU): Light Every Day Tobacco Smoker Type: Cigarettes Amount Used/How Often: 1 pk/wk Have You Smoked in the Last Year: Yes Review of Systems Negative: Fever Negative: Sore Throat, Nasal Discharge Negative: Chest Pain Positive: Shortness Of Breath, Cough Negative: Abdominal Pain All Other Systems Reviewed And Are Negative: Yes Physical Exam Triage Information Reviewed: Yes Vital Signs On Initial Exam: Initial Vitals Temp Pulse Resp BP Pulse Ox 97.2 F 114 24 127/87 92 03/12/19 16:28 03/12/19 16:28 03/12/19 16:28 03/12/19 16:28 03/12/19 16:28 Vital Signs Reviewed: Yes Appearance: Positive: Well-Appearing Skin: Positive: Warm, Dry Head/Face: Positive: Normal Head/Face Inspection Eyes: Positive: Normal, EOMI, PATO, Conjunctiva Clear ENT: Positive: Normal ENT inspection, Pharynx normal, TMs normal Respiratory/Lung Sounds: Positive: Breath Sounds Present, Wheezes Cardiovascular: Positive: Normal, RRR Abdomen Description: Positive: Nontender, Soft Bowel Sounds: Positive: Present Musculoskeletal: Positive: Normal Neurological: Positive: Normal Psychiatric: Positive: Normal Procedures - Sedation Patient Received Moderate/Deep Sedation with Procedure: No Diagnostics - Vital Signs Vital Signs Temp Pulse Resp BP Pulse Ox 03/12/19 16:28 97.2 F 114 24 127/87 92 - Laboratory Result Diagrams: 03/12/19 17:45 03/12/19 17:45 Lab Statement: Any lab studies that have been ordered have been reviewed, and results considered in the medical decision making process. - Radiology chest Radiology Interpretation Completed By: ED Physician Summary of Radiographic Findings: no pneumonia Re-Evaluation - Re-Evaluation First Eval Re-Evaluation Time: 18:22 Change: Unchanged Comment: still stat at 89 Second Eval Re-Evaluation Time: 19:44 Comment: less wheezing but o2 continues to drop, feeling better Course/Dx - Course Course Of Treatment: 24 year old female presents with shortness of breath for the past 3 days. She states that about a 2 weeks ago she had issues with her asthma that seemed to get better. She states though past week she's been using her nebulizer treatments without any relief. She denies any chest pain. She admits to shortness breath. No bowel pain. No nausea or vomiting. No fevers. No sinus congestion. No sore throat. No one else around her is ill. She denies any recent travel. She is a smoker. On exam wheezing noted. gave breathing treatment and feeling better but o2 drops to 88 when take off two liters. wbc 11. crp slightly elevated. chest xray no pneumonia. d-dimer neg. gave steriod and mg with improvement but still has slight wheeze and is hypoxic. discussed with dr kim who agrees to admit. - Diagnoses Differential Diagnosis/HQI/PQRI: Positive: Asthma, Bronchitis, Pneumonia Provider Diagnoses: Asthma exacerbation, Hypoxia Discharge ED - Sign-Out/Discharge Documenting (check all that apply): Patient Departure - Discharge Plan Condition: Stable Disposition: ADMITTED TO [facility] Referrals: Markus Levine MD [Primary Care Provider] - - Billing Disposition and Condition Condition: STABLE Disposition: Admitted to [facility]
[2019-03-12 18:01] LABS: ABS Basophils 0.1 10^3/ul (0-0.2); ABS Lymphocytes 2.3 10^3/ul (1.0-4.8); ABS Monocytes 0.5 10^3/ul (0-0.8); ABS Neutrophils 7.7 10^3/ul (1.5-7.7); Eosinophil % 8.6 %; Hematocrit 39 % (35-47); Lymphocyte % 19.9 %; Mean Corpuscular HGB Conc 33 g/dL (31-36); Mean Corpuscular Hemoglobin 29 pg (27-31); Mean Corpuscular Volume 87 fL (80-97); Mean Platelet Volume 7.4 fL (7.4-10.4); Platelet Count 255 10^3/uL (150-450); Red Blood Count 4.55 10^6 /uL (3.70-4.87); Red Cell Distribution Width 14 % (10-15); White Blood Count 11.7 10^3/uL (3.5-10.8)
--- OUTSIDE RECORDS SUMMARY | 2019-03-12 18:01 | XMS REPORT | Summary of Care ---
:1995 Author Organization [facility] Address [address] [address] Care Team Providers Name Role Phone None, Bryson Primary Care Provider Unavailable Reason for Visit Reason Comments Employment Physical w/ PPD Encounter Details Date Type Department Care Team Description 01/18/2019 Office Visit [place] Renetta Garcia, Routine general medical examination at a health care facility (Primary Dx); Practice [employer] Cigarette nicotine dependence without complication; [address] Flu vaccine need; [place] [address] Need for prophylactic vaccination with combined uogtztxyck-abfqcwv-hgnbhvuyk ( DTP) vaccine [phone] Allergies Active Allergy Reactions Severity Noted Date Comments Reglan PATIENT BILLER Reaction Medium 08/31/2018 documented as of this encounter (statuses as of 01/18/2019) Medications Medication Sig Dispensed Refills Start Date End Date Status mirtazapine (REMERON) Take 30 mg by 0 Active 30 MG Oral Tab mouth. lithium 300 MG Oral Cap Take 300 mg by 0 Active mouth TWICE DAILY. aripiprazole (ABILIFY) Take 10 mg by 0 Active 10 MG Oral Tab mouth EVERY BEDTIME. Lisdexamfetamine Take 70 mg by 0 Active Dimesylate (VYVANSE) 70 mouth DAILY. MG Oral Cap amphetamine-dextroamphe Take 30 mg by 0 Active tamine (ADDERALL XR) 30 mouth EVERY MG Oral CAPSULE SR 24 MORNING. HR albuterol HFA (VENTOLIN Take 2 Puffs by 1 Inhaler 5 08/31/2018 Active HFA) 108 (90 Base) inhalation EVERY MCG/ACT Inhalation Aero FOUR HOURS SolnIndications: Mild NEEDED (SOB). persistent asthma without complication fluticasone-salmeterol Take 1 INHL by 60 Each 5 08/31/2018 Active diskus (ADVAIR DISKUS) inhalation TWICE 250-50 MCG/DOSE DAILY. Inhalation AEROSOL POWDER, BREATH ACTIVATEDIndications: Mild persistent asthma without complication fexofenadine (MADELINE) Take 1 Tab by 30 Tab 5 08/31/2018 Active 180 MG Oral mouth DAILY. TabIndications: Seasonal allergies Etonogestrel-Ethinyl Place 1 Device 1 Each 08/31/2018 Active Estradiol 0.12-0.015 into the vagina MG/24HR Vaginal EVERY 28 DAYS. RINGIndications: Family planning montelukast (SINGULAIR) Take 1 Tab by 30 Tab 5 08/31/2018 Active 10 MG Oral mouth DAILY. TabIndications: Mild persistent asthma without complication, Seasonal allergies valacyclovir (VALTREX) Take 1 Tab by 30 Tab 5 08/31/2018 Active 500 MG Oral mouth DAILY. TabIndications: Genital herpes simplex, unspecified site fluticasone (FLONASE) [place] 2 Sprays in 1 Bottle 08/31/2018 Active 50 MCG/ACT Nasal nose DAILY. SuspensionIndications: Seasonal allergies pantoprazole (PROTONIX) Take 1 Tab by 30 Tab 5 08/31/2018 Active 20 MG Oral Tab mouth DAILY. ECIndications: Gastroesophageal reflux disease without esophagitis Varenicline Tartrate Take 1 Package by 1 Kit 0 01/18/2019 Active 0.5 MG X 11 & 1 MG X 42 mouth Oral MiscIndications: DIRECTED. Cigarette nicotine dependence without complication documented as of this encounter (statuses as of 01/18/2019) Active Problems Problem Noted Date Bipolar 1 disorder 08/31/2018 Herpes simplex infection of genitourinary system 08/31/2018 Mild persistent asthma without complication 08/31/2018 Gastroesophageal reflux disease without esophagitis 08/31/2018 Asthma Depression Overview: past suicide attempts, sees Dr Michaels GERD (gastroesophageal reflux disease) ADHD Bipolar 1 disorder, mixed, mild Nicotine dependence Anxiety Chronic pain syndrome documented as of this encounter (statuses as of 01/18/2019) Immunizations Name Administration Dates Next Due DTAP Vaccine 02/01/1998, 05/10/1995, 1994, 1995, 1994 H1N1 Injectable Adult 04/24/2009 HIB (PRP-T) 05/10/1995, 1994, 1994, 1994 Hepatitis A Vaccine Peds 07/17/2010, 07/12/2009 Hepatitis B Vaccine 1994, 1994, 1994 Human Papillomavirus 11/01/2008, 06/01/2008, 04/11/2008 Influenza (IM) Preservative Free 01/18/2019 Influenza Virus Vaccine Pres Free 6-35 02/16/2011, 05/29/2010, 03/13/2009, Months 04/11/2008, 06/14/2006, 03/07/2005, 04/23/2003, 03/20/2003 MMR 02/01/1998, 05/10/1995 Meningococcal Polysaccharide (Groups 06/10/2007, 05/27/2007 A, C, Y And W-135) D) Poliomyelitis vaccine 02/01/1998, 1994, 1994, 1994 TDAP Vaccine 01/18/2019, 06/14/2006, 05/07/2006 Varicella Vaccine Live 06/01/2008, 02/10/1996 documented as of this encounter Social History Tobacco Use Types Packs/Day Years Used Date Current Every Day Smoker Smokeless Tobacco: Never Used Sex Assigned at Date Recorded Not on file Job Start Date Occupation Industry Not on file Not on file Not on file Travel History Travel Start Travel End No recent travel history available. documented as of this encounter Last Filed Vital Signs Vital Sign Reading Time Taken Comments Blood Pressure 128/78 01/18/2019 11:08 AM EDT Pulse 93 01/18/2019 11:08 AM EDT Temperature 37 01/18/2019 11:08 AM EDT C (98.6 F) Respiratory Rate - - Oxygen Saturation 97% 01/18/2019 11:08 AM EDT Inhaled Oxygen Concentration - - Weight 101.6 kg (224 lb) 01/18/2019 11:08 AM EDT Height 160 cm (5' 3") 01/18/2019 11:08 AM EDT Body Mass Index 39.68 01/18/2019 11:08 AM EDT documented in this encounter Patient Instructions Patient InstructionsRenetta Garcia FNP - 01/18/2019 11:00 AM EDTChantix as directed Flu and Tdap today Form signed Follow up as needed documented in this encounter Progress Notes Renetta Garcia FNP - 01/18/2019 11:00 AM EDT PATIENT: Ashanti Herr : 1995 DATE OF SERVICE: 01/18/2019 CHIEF COMPLAINT: Chief Complaint Patient presents with Employment Physical w/ PPD Subjective HISTORY OF PRESENT ILLNESS: Ashanti Herr is a 23-y.o. female. HPI Here for clearance for [facility] [employer] program and for new job. Immunizations reviewed - UTD except TDAP and Flu Had PPD placed by new employer Wants to quit smoking - did well on Wellbutrin in past - currently on other Psych meds Past Medical History: Diagnosis Date ADHD Anxiety Asthma Bipolar 1 disorder, mixed, mild (HCC) Chronic pain syndrome Depression past suicide attempts, sees Dr Michaels GERD (gastroesophageal reflux disease) Nicotine dependence No family history on file. Current Outpatient Medications Medication Sig albuterol HFA (VENTOLIN HFA) 108 (90 Base) MCG/ACT Inhalation Aero Soln Take 2 Puffs by inhalation EVERY FOUR HOURS NEEDED (SOB). amphetamine-dextroamphetamine (ADDERALL XR) 30 MG Oral CAPSULE SR 24 HR Take 30 mg by mouth EVERY MORNING. aripiprazole (ABILIFY) 10 MG Oral Tab Take 10 mg by mouth EVERY BEDTIME. Etonogestrel-Ethinyl Estradiol 0.12-0.015 MG/24HR Vaginal RING Place 1 Device into the vaginaEVERY 28 DAYS. fexofenadine (MADELINE) 180 MG Oral Tab Take 1 Tab by mouth DAILY. fluticasone (FLONASE) 50 MCG/ACT Nasal Suspension [place] 2 Sprays in nose DAILY. fluticasone-salmeterol diskus (ADVAIR DISKUS) 250-50 MCG/DOSE Inhalation AEROSOL POWDER, BREATH ACTIVATED Take 1 INHL by inhalation TWICE DAILY. Lisdexamfetamine Dimesylate (VYVANSE) 70 MG Oral Cap Take 70 mg by mouth DAILY. lithium 300 MG Oral Cap Take 300 mg by mouth TWICE DAILY. mirtazapine (REMERON) 30 MG Oral Tab Take 30 mg by mouth. montelukast (SINGULAIR) 10 MG Oral Tab Take 1 Tab by mouth DAILY. pantoprazole (PROTONIX) 20 MG Oral Tab EC Take 1 Tab by mouth DAILY. valacyclovir (VALTREX) 500 MG Oral Tab Take 1 Tab by mouth DAILY. Varenicline Tartrate 0.5 MG X 11 & 1 MG X 42 Oral Misc Take 1 Package by mouth DIRECTED. No current facility-administered medications for this visit. Allergies Allergen Reactions Reglan PATIENT BILLER Reaction Social History Socioeconomic History Marital status: Single Spouse name: Not on file Number of children: Not on file Years of education: Not on file Highest education level: Not on file Occupational History Not on file Social Needs Financial resource strain: Not on file Food insecurity: Worry: Not on file Inability: Not on file Transportation needs: Medical: Not on file Non-medical: Not on file Tobacco Use Smoking status: Current Every Day Smoker Smokeless tobacco: Never Used Substance and Sexual Activity Alcohol use: Not on file Drug use: Not on file Sexual activity: Yes Partners: Male control/protection: Vaginal Contraceptive Ring Lifestyle Physical activity: Days per week: Not on file Minutes per session: Not on file Stress: Not on file Relationships Social connections: Talks on phone: Not on file Gets together: Not on file Attends congregational service: Not on file Active member of club or organization: Not on file Attends meetings of clubs or organizations: Not on file Relationship status: Not on file Intimate partner violence: Fear of current or ex partner: Not on file Emotionally abused: Not on file Physically abused: Not on file Forced sexual activity: Not on file Other Topics Concern Not on file Social History Narrative Not on file Over the last 2 weeks, have you been feeling down, depressed, anxious, or hopeless?: 1 (anxiety) Over the past 2 weeks, have you felt little interest or pleasure in doing things ?: 0 REVIEW OF SYSTEMS: Review of Systems Constitutional: Negative for chills, fever and malaise/fatigue. HENT: Negative for ear pain and sinus pain. Eyes: Negative for discharge. Respiratory: Negative for cough, sputum production and shortness of breath. Cardiovascular: Negative for chest pain. Gastrointestinal: Negative for diarrhea, nausea and vomiting. Musculoskeletal: Negative for back pain and myalgias. Neurological: Negative for dizziness and headaches. Psychiatric/Behavioral: [facility] Objective PHYSICAL EXAM: VITALS: BP 128/78 (BP Location: Left arm, Patient Position: Sitting) | Pulse 93 | Temp 98.6 F(37 C) | Ht 5' 3" (1.6 m) | Wt 224 lb (101.6 kg) | SpO2 97% | BMI 39.68 kg/m Body mass index is 39.68 kg/m. Physical Exam Constitutional: She is oriented to person, place, and time. Vital signs are normal. She appears well-developed and well-nourished. HENT: Head: Normocephalic and atraumatic. Right Ear: Hearing and tympanic membrane normal. Left Ear: Hearing and tympanic membrane normal. Nose: Nose normal. Mouth/Throat: Uvula is midline and oropharynx is clear and moist. Eyes: Pupils are equal, round, and reactive to light. EOM are normal. Neck: Normal range of motion. No JVD present. Cardiovascular: Normal rate and regular rhythm. Pulmonary/Chest: Effort normal and breath sounds normal. Abdominal: Soft. Bowel sounds are normal. There is no hepatosplenomegaly. There is no tenderness. Musculoskeletal: Normal range of motion. Lymphadenopathy: She has no cervical adenopathy. Neurological: She is alert and oriented to person, place, and time. No cranial nerve deficit or sensory deficit. Gait normal. Skin: Skin is warm and dry. No rash noted. Vitals reviewed. ASSESSMENT / IMPRESSION: ICD-9-CM ICD-10-CM 1. Routine general medical examination at a health care facility V70.0 Z00.00 2. Cigarette nicotine dependence without complication 305.1 F17.210 Varenicline Tartrate 0.5 MG X 11& 1 MG X 42 Oral Misc 3. Flu vaccine need V04.81 Z23 [place] FLU VACCINE PRES FREE 3YRS+ ADULT (DX Z23) 4. Need for prophylactic vaccination with combined fugdeivxyd-ghtdeky-szlujkshr (DTP) vaccine V06.1 Z23 [place] TET, DIP & ACEL PERTUSSIS(DX Z23) Plan Chantix as directed - pt counseled on use and side effects of medication. Started pack sent to pharmacy Flu and Tdap today Form signed Follow up as needed Author: COURTNEY Ervin 01/18/2019 11:52 documented in this encounter Plan of Treatment Date Type Specialty Care Team Description 04/19/2019 Office Visit Internal Medicine Markus Levine MD [address] [place] [address] [phone] Health Maintenance Due Date Last Done Comments CHLAMYDIA SCREENING 1995 PAP SMEAR 1995 PNEUMOCOCCAL 0-64 YRS (1 of 1 01/30/2000 - PPSV23) HPV IMMUNIZATION SERIES (1 - 2009 Female 3-dose series) INFLUENZA VACCINE (#1) 2019 03/01/2015, 04/24/2009 DEPRESSION SCREENING 01/19/2020 01/18/2019 MENINGOCOCCAL VACCINE IMM Aged Out No longer eligible based on patient's age to complete this topic documented as of this encounter Goals Goal Patient Goal Associated Recent Patient-Stated? Author Type Problems Progress Depression Depression No umberto Garcia (PHQ-9) COURTNEY Jackson total score < 5 Note: This is an individualized treatment (depression) goal for Ashanti Herr: Displayed above is your goal for a depression screening (PHQ-9) score that would indicate good control of your depression. Keep a regular sleep schedule Lifestyle No Renetta Garcia FNP Note: This is an individualized lifestyle goal for Ashanti Herr: Please maintain a regular sleep schedule. This may help with some symptoms of depression. Take all prescribed medications as Self-management No Renetta Garcia FNP directed Note: This is an individualized self-management goal for Ashanti Herr: Please take all prescribed medications as directed. 1. Do not skip doses. If you cannot afford your medications, talk with your doctor. 2. Use a pill reminder system such as a pill box if needed. Your pharmacist can help you with this. 3. Contact your Pharmacy 5 days before your medication runs out. If you cannot take your medications for any reasons, talk with your doctor. 4. Please bring all of your medication bottles and inhalers (or a list of all your medications/inhalers) with you to every visit. Potential barriers to meeting all of your care plan goals will continue to be addressed on an ongoing basis. documented as of this encounter Results Not on filedocumented in this encounter Visit Diagnoses Diagnosis Routine general medical examination at a health care facility - Primary Cigarette nicotine dependence without complication Tobacco use disorder Flu vaccine need Need for prophylactic vaccination and inoculation against influenza Need for prophylactic vaccination with combined bqnrxyvchq-qfavdrr-ubbtyhzmk ( DTP) vaccine documented in this encounter (Home) Road [phone] [place], [place] (Work) [id number] documented as of this encounter
[2019-03-12 18:20] LABS: ALT 17 U/L (7-52); AST 14 U/L (13-39); Albumin 3.6 g/dL (3.2-5.2); Albumin/Globulin Ratio 1.4 (1-3); Alkaline Phosphatase 87 U/L (34-104); Anion Gap 6 mmol/L (2-11); BUN/Creatinine Ratio 9.1 (8-20); Blood Urea Nitrogen 6 mg/dL (6-24); C Reactive Protein 12.13 mg/L (<8.01); CO2 Carbon Dioxide 25 mmol/L (22-32); Chloride 111 mmol/L (101-111); EGFR Non-African American 109.1 (>60); Globulin 2.5 g/dL (2-4); Glucose 134 mg/dL (70-100); Magnesium 2.3 mg/dL (1.9-2.7); Potassium 3.9 mmol/L (3.5-5.0); Sodium 142 mmol/L (135-145); Total Protein 6.1 g/dL (6.4-8.9)
[2019-03-12 18:26] LABS: HCG Pregnancy < 0.60 mIU/mL
[2019-03-12] MEDS ORDERED: Albuterol 0.5% CONC NEB.SOL* 5 MG/ML 20 ml BOT INH ONE ×2 (18:27→20:50)
[2019-03-12] MEDS ORDERED: Mirtazapine TAB* 15 MG PO PRN (21:22)
--- NOTE | 2019-03-12 23:24 | HP ---
ADMISSION HISTORY AND PHYSICAL: DATE OF ADMISSION: 03/12/19 PRIMARY CARE PROVIDER: Dr. Levine. HEALTHCARE PROXY: Her Bharat gutierrez. CODE STATUS: Full. SOURCE OF INFORMATION: History obtained from interview with the patient and review of past medical records. RELIABILITY: Good. CHIEF COMPLAINT: "Asthma attack." HISTORY OF PRESENT ILLNESS: This is a 24-year-old female with a past medical history of asthma since childhood with multiple hospital stays, 4 to 5 times, she reports over the last 2 years in the setting of asthma exacerbations, but never needing intubation, who has had "months of not feeling well" with recent worsening approximately 2 weeks ago with increased shortness of breath, wheezing , and cough, more frequent use of her nebulizers. She presented to [facility] where she had a "steroid injection" as well as started on p.o. steroids 50 mg daily for approximately 10 days. She ended up, she thinks, between 3 and 10 days prior to this presentation. She did not feel that she got worse on this steroids, but also felt that she had gotten no better with continued shortness of breath, cough using her nebulizer overnight without much improvement of wheezing. No fevers, but endorsed chills, decreased appetite, lightheadedness, loss of consciousness. No chest pain. She reports that last 3 days she got particularly worse, been unable to function, unable to go to school, not each much or take any of her medications. Additionally, she denies any pleuritic chest pain. No sick contacts, although she does live with her own 4 and 7-year- old children. She has been referred to fixture designer multiple times, but has never seen them. In the emergency room, she was given 3 nebulizers, IV steroids, felt improved since presentation, however, was noted to be hypoxic, requiring 2 L of nasal cannula, remained above 88%. PAST MEDICAL HISTORY: Includes asthma, kidney stones, genital herpes, anxiety, PTSD, panic disorder, bipolar disorder, depression. MEDICATIONS: Reviewed with the patient. Of note, I did have some difficulty updating this in the computer. Please use this list as the most current medications: 1. Valtrex 500 mg daily. 2. Protonix 20 mg daily. 3. Nicotine patch 20 mg transdermally daily. 4. Singulair 10 mg daily. 5. Mirtazapine 30 mg at bedtime p.r.n. insomnia. 6. [place] 600 mg twice daily. 7. Vyvanse 70 mg daily. 8. Advair 500/50 one puff twice daily. 9. Fexofenadine 180 mg daily. 10. She does not take Flexeril. 11. She is not taking prednisone. 12. Adderall 30 mg daily. 13. Albuterol HFA every 6 hours as needed. 14. Albuterol nebulizer every 6 hours as needed. 15. Abilify 10 mg daily. ALLERGIES: To REGLAN causes itching and irritability. FAMILY HISTORY: Significant for brother with asthma. SOCIAL HISTORY: Has 2 children, 4 and 7. Half pack per day of tobacco. Marijuana 1 to 2 times per month. No vaping. No other illicits. Drinks 1 to 2 times per month. 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 REVIEW OF SYSTEMS: As per HPI, otherwise all other systems negative. PHYSICAL EXAMINATION GENERAL: Sitting up in bed, interacts, pleasant, in no apparent distress. VITAL SIGNS: When seen 128/92, respiratory rate is 16, she is 92% on 2 L, decreased to 90% on room air, T-max is 97.2. HEENT: Her oropharynx is clear. She does have discoloration of her tongue laterally with semicircular pattern into the discoloration, fairly symmetric distribution bilaterally at the lateral aspects of her tongue. She has no lymphadenopathy, cervical or supraclavicular. LUNGS: Her lungs have diffuse wheeze throughout. She does have rhonchi in bases. HEART: She has regular rate and rhythm. No murmurs, rubs, or gallops. EXTREMITIES: Warm, well perfused without clubbing, cyanosis or edema. Less than 2 seconds cap refill. ABDOMEN: Soft, nontender, nondistended. NEUROLOGIC: She is alert and oriented x3. DIAGNOSTIC STUDIES/LAB DATA: Labs reviewed. White blood cell count 11.7, platelets 255. D-dimer is less than 200. Lactic acid 1.6, CRP is 12. Data reviewed. Chest x-ray, no active cardiopulmonary disease on this author's interpretation. ASSESSMENT AND PLAN: This is a 24-year-old female with past medical history of asthma, shortness of breath for several months with worsening difficulty breathing and wheezing over the last several days. 1. Shortness of breath and wheeze: Suspect asthma exacerbation, has failed to improve the steroid over a 10-day course as well as albuterol in the emergency room. She has improved with albuterol in the emergency room. Continue steroids p.o., albuterol q.4 as needed while awake. Home medications including Spiriva and inhaled Dulera, Pulmonary consult would be useful in the hospital. Peak flow q.6 hours while awake. 2. Hypoxia, largely resolved, 90% on room air when checked. I suspect in the setting of asthma exacerbation. 3. Tobacco, counseled cessation. 4. Genital herpes: Continue Valtrex. 5. Attention deficit hyperactivity disorder. Prescribed Vyvanse and Adderall. We will continue Adderall, holding Vyvanse. 6. Bipolar disorder: Continue home medications including Abilify and lithium. 7. DVT prophylaxis: Enoxaparin. [id number]/[facility] #: [id number] CANDY
[2019-03-13] MEDS: Enoxaparin(*) 40 MG/0.4 ML SYR SUBCUT SCH ×2 (00:07→21:55)
[2019-03-13] MEDS: Albuterol/Ipratropium NEB.SOL* Albuterol 2.5 MG/Ipratropium 0.5 MG 3 ML INH PRN ×2 (03:07→07:36)
[2019-03-13] MEDS: Mometasone/Formoter 200/5 MDI INH SCH ×2 (07:30→19:40)
[2019-03-13] MEDS ORDERED: Amphetamine/Dextroamph ER(NF) 10 MG CAP.ER PO SCH (09:00)
[2019-03-13] MEDS: Pantoprazole TAB * 40 MG TAB PO SCH (09:13)
[2019-03-13] MEDS: predniSONE TAB* 50 MG PO SCH (09:13)
[2019-03-13] MEDS: Cetirizine* 10 MG TAB PO SCH (09:13)
[2019-03-13] MEDS: Montelukast Sodium TAB* 10 MG PO SCH (09:13)
[2019-03-13] MEDS: CMCS:Lithium Carbonate ER (NF) 300 MG TAB.ER PO SCH ×2 (09:13→21:54)
[2019-03-13] MEDS: ARIPiprazole TAB* 5 MG PO SCH (09:22)
[2019-03-13] MEDS: ValACYclovir (*) 500 MG TAB PO SCH (09:38)
[2019-03-13] MEDS ORDERED: Benzonatate CAP* 100 MG PO PRN (10:22)
[2019-03-13] MEDS: SPIRIVA Respimat* (tiotropium) 2.5 mcg/inh Inhaler INH SCH (13:14)
[2019-03-13] MEDS ORDERED: Nicotine* 2MG (FRUIT FLAVOR) GUM PO PRN (14:13)
--- NOTE | 2019-03-13 14:27 | PN ---
Subjective Date of Service: 03/13/19 Interval History: Patient is enthusiastic to quit smoking, but feels anxious that she will "mess it up" when she leaves the hospital. Discussed using Quit Now laexi which shows health benefits and monetary savings, which patient feels encouraged by. Had success quitting with wellbutrin in the past. Agreeable to nicotine patch considering wellbutrin interactions with abilify. Feels breathing is comfortable today and by this afternoon has needed fewer duonebs to feel comfortable. Has not ambulated much today but has not felt SOB with exertion. Denies fever/chills, chest pain, palpitations, dyspnea. Endorses cough which is productive and has been going on for several weeks and has been unchanged. Objective Active Medications: Albuterol/Ipratropium (Duoneb (Albuterol 2.5 Mg/Ipratropium 0.5 Mg)) 1 neb INH [id number] AWAKE PRN PRN Reason: sob/wheezing Last Admin: 03/13/19 07:36 Dose: 1 neb Aripiprazole (Abilify Tab*) 10 mg PO DAILY [facility] Last Admin: 03/13/19 09:22 Dose: 10 mg Benzonatate (Tessalon Cap*) 100 mg PO BID PRN PRN Reason: COUGH Last Admin: 03/13/19 11:03 Dose: 100 mg Cetirizine HCl (Zyrtec*) 10 mg PO DAILY [facility]; Protocol Last Admin: 03/13/19 09:13 Dose: 10 mg Enoxaparin Sodium (Lovenox(*)) 40 mg SUBCUT BEDTIME NELLY Last Admin: 03/13/19 00:07 Dose: 40 mg [place] Carbonate ([place] Carbonate Er (Nf)) 600 mg PO BID [facility]; Protocol Last Admin: 03/13/19 09:13 Dose: 600 mg Mirtazapine (Remeron Tab*) 30 mg PO BEDTIME PRN PRN Reason: INSOMNIA Mometasone Furoate/Formoterol Fumar (Dulera 200/5 Mdi*) 2 puff INH BID [facility] Last Admin: 03/13/19 07:30 Dose: 2 puff Montelukast Sodium (Singulair Tab*) 10 mg PO DAILY [facility] Last Admin: 03/13/19 09:13 Dose: 10 mg Nicotine (Nicotine Patch 21 Mg/24 Hr*) 1 patch TRANSDERM DAILY [facility] Nicotine Polacrilex (Nicotine Gum*) 2 mg PO Q2H PRN PRN Reason: CRAVING Pantoprazole Sodium (Protonix Tab*) 40 mg PO QAM [facility] Last Admin: 03/13/19 09:13 Dose: 40 mg Pharmacy Profile Note (Nicotine Patch Removal Note*) 1 note FOLLOW UP 2100 NELLY Prednisone (Deltasone Tab*) 50 mg PO DAILY [facility] Last Admin: 03/13/19 09:13 Dose: 50 mg Tiotropium [place] (Spiriva Respimat 2.5 Mcg) 1 puff INH DAILY [facility] Last Admin: 03/13/19 13:14 Dose: 1 puff Valacyclovir HCl (Valtrex 500 Mg (*)) 500 mg PO QAM [facility]; Protocol Last Admin: 03/13/19 09:38 Dose: 500 mg Vital Signs - 8 hr 03/13/19 03/13/19 03/13/19 07:35 07:40 08:00 Temperature 98.2 F Pulse Rate 86 98 Respiratory 20 17 20 Rate Blood Pressure 114/54 (mmHg) O2 Sat by Pulse 93 91 Oximetry 03/13/19 11:32 Temperature 98.4 F Pulse Rate 91 Respiratory 20 Rate Blood Pressure 122/72 (mmHg) O2 Sat by Pulse 93 Oximetry Oxygen Devices in Use Now: Nasal Cannula Appearance: Obese, young, white female, appears stated age, sitting on side of bed, appearing in NAD Eyes: No Scleral Icterus, - - PERRL Ears/Nose/Mouth/Throat: Mucous Membranes Moist Neck: NL Appearance and Movements; NL JVP Respiratory: Symmetrical Chest Expansion and Respiratory Effort, - - diffuse expiratory and inspiratory wheezes mixed with rhonchi at bases; no dyspnea; not using accessory muscles Cardiovascular: NL Sounds; No Murmurs; No JVD, RRR Abdominal: - - abd soft, nontender, nondistended Extremities: No Edema, No Clubbing, Cyanosis Skin: No Rash or Ulcers Neurological: Alert and Oriented x 3, NL Muscle Strength and Tone Result Diagrams: 03/12/19 17:45 03/12/19 17:45 Assess/Plan/Problems-Billing Assessment: 24 yo female with PMHx asthma, kidney stone, anxiety, PTSD, panic, BPD, current smoker presents with hypoxia and found to be in status asthmaticus. - Patient Problems (1) Asthma exacerbation Current Visit: No Status: Acute Code(s): J45.901 - UNSPECIFIED ASTHMA WITH ( ACUTE) EXACERBATION SNOMED Code(s): 016634252 Comment: -uncontrolled asthma for what sounds like at least 2 months leading up to hospitalization, presented in status asthmaticus. Poor follow up with pulmonology outpatient but follows with PCP -improved today though still with hypoxia on 2L oxygen this morning. Will attempt to wean. Additionally she feels symptomatically improved, denies dyspnea and needing duonebs less frequently. Still with diffuse wheezing -continue high dose dulera, singulair, cetirizine. Adding flonase as patient tells me she typically takes at home, updating home med rec to reflect this -continue prednisone -patient has had ongoing nasal congestion/postnasal drip since January which seems consistent with seasonal allergies. This may have caused this exacerbation. She had allergy testing 10+ years ago and would benefit from additional testing -ordering flutter valve to help with productive cough -patient admits to poor singulair adherence but tells me her best medication adherence is with advair, this is likely also contributing to her exacerbation -patient seems to be a good candidate for spiriva and Dr. Martin agrees, starting at 1.25mcg (one puff) -appreciate pulm consult. Will need PFTs and sleep study outpatient. (2) Hypoxia Current Visit: No Status: Acute Code(s): R09.02 - HYPOXEMIA SNOMED Code(s) : 201340133 Comment: - Improving - Suspect secondary to asthma exacerbation - Will attempt to wean as she is improving (3) Tobacco abuse Current Visit: No Status: Acute Code(s): Z72.0 - TOBACCO USE SNOMED Code(s ): 146496298 Comment: - Patient had cessation success with wellbutrin in the past, however it interacts with her abilify and would require adjusted abilify doses which should be discussed with her psychiatrist - Had adverse reactions of indigestion and nausea with chantix - Agreeable to nicotine patch and nicotine gum - Agreeable to attending smoking cessation groups, would appreciate coordination with case management (4) ADHD Current Visit: No Status: Acute Comment: -patient takes vyvanse daily and only takes adderal as needed when she has classes -holding adderal while in hospital, continue vyvanse (5) Bipolar disorder Current Visit: No Status: Acute Comment: -continue lithium, abilify, remeron (6) DVT prophylaxis Current Visit: No Status: Acute Code(s): BSH2556 - SNOMED Code(s): 764626779 Comment: -lovenox (7) Full code status Current Visit: No Status: Acute Code(s): Z78.9 - OTHER SPECIFIED HEALTH STATUS SNOMED Code(s): 268370370 Status and Disposition: Inpatient. Anticipate d/c home when stable.
[2019-03-13] MEDS: Nicotine PATCH 21 MG/24 HR* PATCH TRANSDERM SCH (16:04)
--- NOTE | 2019-03-13 17:32 | CONS ---
PULMONARY CONSULTATION REPORT: DATE OF CONSULT: 03/13/19 CONSULTATION REQUESTED BY: Dr. Neal. REASON FOR CONSULT: Evaluation of asthma. HISTORY OF PRESENT ILLNESS: The patient is a 24-year-old obese female with history of asthma since childhood, has been under good control until recently. The patient has been having recurrent asthma symptoms recently. She had multiple hospital stays recently. She has been hospitalized at least 4 to 5 times in the past 2 years. The patient also reports recurrent prednisone requirement. The patient presents for evaluation of worsening shortness of breath, wheezing, and cough. Symptoms started approximately 2 weeks ago. The patient did not have any improvement in symptoms with nebulizers. She presented to the [facility] and she was given Solu-Medrol and was also started on tapering course of prednisone. Symptoms got worse in spite of the prednisone usage and presented for further evaluation. The patient denies fevers, reports chills. The patient reports feeling ill and with decreased appetite. The patient denies chest pain, palpitations, dizziness, loss of weight. The patient denies pleuritic chest pain, sick contact, recent travel. The patient was given nebulizers in the emergency room for significant tachypnea. She was also found to be hypoxemic and required O2 supplementation at 2 L to maintain her sats above 88%. The patient was seen and examined at bedside this morning. The patient reports slight improvement in symptoms. The patient is a current smoker, unable to quit. She has history of anxiety/ depression, which also results in her using nicotine to help with her symptoms. She was seeing a psychiatrist in the past, currently was taken off of medications. The patient reports that she has not smoked for the past 5 days and does not have significant withdrawal from it. The patient denies any GERD symptoms while on PPI. The patient denies known allergies. She does endorse snoring and disruptive sleep. PAST MEDICAL HISTORY: 1. Asthma. 2. Kidney stones. 3. Genital herpes. 4. Anxiety. 5. PTSD. 6. Panic disorder. 7. Bipolar disorder. 8. Depression. MEDICATIONS: 1. Valtrex. 2. Protonix. 3. Nicotine patch. 4. Singulair. 5. Mirtazapine. 6. [place]. 7. Vyvanse. 8. Advair. 9. Fexofenadine. 10. Adderall. 11. Albuterol HFA nebulizer. 12. Abilify. ALLERGIES: REGLAN, itching and irritability. FAMILY HISTORY: Brother with asthma. SOCIAL HISTORY: , with children. She is a half-a-pack per day smoker. She also smokes marijuana 1 to 2 times in a month. Denies vaping. One to two drinks per month. 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 REVIEW OF SYSTEMS: All 14 systems reviewed, as per HPI. PHYSICAL EXAM: Obese female, in bed, in no apparent distress. Vital Signs: Temperature 98.4, pulse 91 beats per minute, respiratory rate 20 per minute, O2 sat 93% on 2 L, blood pressure 122/72. HEENT: Pupils equal, reactive to light. Mucous membranes moist. Mallampati class 4 airway. Lungs: Diminished air entry bilaterally. Mild wheeze on auscultation. Cardiovascular: S1, S2 present, regular. Abdomen: Soft, nontender, nondistended. Bowel sounds present. Extremities: Normal range of motion. Skin: No rash or bruises. DIAGNOSTIC STUDIES/LAB DATA: WBC count 11.7, hemoglobin 13, hematocrit 39, platelet count 255. Sodium 142, potassium 3.9, chloride 111, bicarb 25, BUN 6, creatinine 0.66, lactic acid 1.6. CRP 12.13. Chest x-ray performed on admission was personally reviewed by me and with the patient today - no airspace opacity is noted. No evidence of significant hyperinflation noted. IMPRESSION AND RECOMMENDATIONS: 24-year-old female with history of asthma, current smoker, with active asthma symptoms currently. The patient is having recurrent exacerbations recently, most likely secondary to continued smoking status. She also reports heartburn symptoms. Her body habitus also concerning for sleep apnea, which might be contributing to her symptoms. The patient reports significant personal stress that is not helping her to quit smoking. She would benefit from smoking cessation group sessions. Smoking cessation education and counseling was performed during today's visit that lasted 5 minutes. Consequences of smoking and interventions to quit smoking were discussed with the patient in detail. She is willing to quit smoking. The patient with no evidence of pneumonia or other opacities on the CT chest. She is hypoxemic and requiring O2 supplementation at 2 L, which might be resulting from her bronchospasms. She does still appear to be tight and wheezy. She is currently on prednisone at 50 mg daily. I would not taper that yet until her wheezing starts to improve. She would need PFTs as outpatient. She would also require sleep study as outpatient. She would benefit from resources to quit smoking successfully. She might also need followup with her psychiatrist to better manage her anxiety. Continue with bronchodilators. I agree with adding Spiriva to her Advair. Thank you for allowing me to participate in the care of your patient. Will follow up with you. [id number]/[facility] #: [id number] CANDY
[2019-03-13] MEDS: Fluticasone NASAL SPRAY 50MCG* 16 gm SPRAY BTL BOTH NARES SCH (17:45)
[2019-03-13] MEDS ORDERED: Nicotine Patch Removal NOTE FOLLOW UP SCH (21:00)
[2019-03-14 07:55] VITALS: BP 100/70
[2019-03-14] MEDS: SPIRIVA Respimat* (tiotropium) 2.5 mcg/inh Inhaler INH SCH (08:11)
[2019-03-14] MEDS: Mometasone/Formoter 200/5 MDI INH SCH (08:11)
--- NOTE | 2019-03-14 08:21 | PN ---
Progress Note - Progress Note Date of Service: 03/14/19 - Pulm f/u note Note: Pt seen and examined at bedside. Pt reports feeling better, able to sleep well last night. Not much cough this am, SOB is improved, dyspneic with exertion Active Medications Generic Name Dose Route Start Last Admin Trade Name Freq PRN Reason Stop Dose Admin Albuterol/Ipratropium 1 neb 03/12/19 21:20 03/13/19 07:36 Duoneb (Albuterol 2.5 Mg/Ipratropium 0.5 Mg) INH 1 neb [id number] AWAKE PRN Administration sob/wheezing Aripiprazole 10 mg 03/13/19 09:00 03/13/19 09:22 Abilify Tab* PO 10 mg DAILY NELLY Administration Benzonatate 100 mg 03/13/19 10:22 03/13/19 11:03 Tessalon Cap* PO 100 mg BID PRN Administration COUGH Cetirizine HCl 10 mg 03/13/19 09:00 03/13/19 09:13 Zyrtec* PO 10 mg DAILY NELLY Administration Protocol Enoxaparin Sodium 40 mg 03/12/19 22:00 03/13/19 21:55 Lovenox(*) SUBCUT 40 mg BEDTIME NELLY Administration Fluticasone Propionate 2 spray 03/13/19 15:00 03/13/19 17:45 Flonase Nasal [place] 50mcg* BOTH NARES 2 spray DAILY NELLY Administration [place] Carbonate 600 mg 03/13/19 09:00 03/13/19 21:54 [place] Carbonate Er (Nf) PO 600 mg BID NELLY Administration Protocol Mirtazapine 30 mg 03/12/19 21:22 Remeron Tab* PO BEDTIME PRN INSOMNIA Mometasone Furoate/Formoterol Fumar 2 puff 03/13/19 09:00 03/14/19 08:11 Dulera 200/5 Mdi* INH 2 puff BID NELLY Administration Montelukast Sodium 10 mg 03/13/19 09:00 03/13/19 09:13 Singulair Tab* PO 10 mg DAILY NELLY Administration Nicotine 1 patch 03/13/19 15:00 03/13/19 16:04 Nicotine Patch 21 Mg/24 Hr* TRANSDERM 1 patch DAILY NELLY Administration Nicotine Polacrilex 2 mg 03/13/19 14:13 Nicotine Gum* PO Q2H PRN CRAVING Pantoprazole Sodium 40 mg 03/13/19 09:00 03/13/19 09:13 Protonix Tab* PO 40 mg QAM NELLY Administration Pharmacy Profile Note 1 note 03/13/19 21:00 03/13/19 21:57 Nicotine Patch Removal Note* FOLLOW UP Not Given 2100 NELLY Prednisone 50 mg 03/13/19 09:00 03/13/19 09:13 Deltasone Tab* PO 50 mg DAILY NELLY Administration Tiotropium [place] 1 puff 03/13/19 13:00 03/14/19 08:11 Spiriva Respimat 2.5 Mcg INH 1 puff DAILY NELLY Administration Valacyclovir HCl 500 mg 03/13/19 09:00 03/13/19 09:38 Valtrex 500 Mg (*) PO 500 mg QAM NELLY Administration Protocol Vital Signs Temp Pulse Resp BP Pulse Ox 98.1 F 72 22 100/70 100 03/14/19 07:15 03/14/19 07:15 03/14/19 07:15 03/14/19 07:15 03/14/19 07:15 Labs: NO new labs O/E :Pt in NAD HEENT: PERRLA, no JVD Lungs: Good a/e b/l,mild wheeze CVS: S1, S2+, regular Abd: Soft, BS+ Ext: Normal ROM, no edema Skin: No rash Neuro: No focal deficits I/R: 24 y o obese f, current smoker with h/o asthma, allergies, anxiety a/w worsening SOB, being treated for acute asthma exacerbation Pt improved, hypoxia resolved [place] still present Has mild wheeze on auscultation Will c/w prednisone taper and to complete abx course Will need f/u in pulm clinic on d/c for PFTs and sleep study Smoking cessation education was reenforced
[2019-03-14] MEDS: Nicotine PATCH 21 MG/24 HR* PATCH TRANSDERM SCH (08:34)
[2019-03-14] MEDS: ValACYclovir (*) 500 MG TAB PO SCH (08:36)
[2019-03-14] MEDS: Fluticasone NASAL SPRAY 50MCG* 16 gm SPRAY BTL BOTH NARES SCH (08:36)
[2019-03-14] MEDS: CMCS:Lithium Carbonate ER (NF) 300 MG TAB.ER PO SCH (08:37)
[2019-03-14] MEDS: predniSONE TAB* 50 MG PO SCH (08:37)
[2019-03-14] MEDS: Pantoprazole TAB * 40 MG TAB PO SCH (08:37)
[2019-03-14] MEDS: ARIPiprazole TAB* 5 MG PO SCH (08:37)
[2019-03-14] MEDS: Montelukast Sodium TAB* 10 MG PO SCH (08:37)
[2019-03-14] MEDS: Cetirizine* 10 MG TAB PO SCH (08:37)
--- NOTE | 2019-03-15 00:55 | DS ---
CC: Dr. Levine * DISCHARGE SUMMARY: DATE OF ADMISSION: 03/12/19 DATE OF DISCHARGE: 03/14/19 ATTENDING PHYSICIAN WHILE IN THE HOSPITAL: Dr. Markie Browning * (dictated by ARGENTINA Scott). PRIMARY CARE PROVIDER: Dr. Levine. PRIMARY DIAGNOSIS: Presenting status asthmaticus, resolved. SECONDARY DIAGNOSES: 1. History of kidney stones. 2. Genital herpes. 3. Anxiety. 4. PTSD. 5. Panic disorder. 6. Bipolar disorder. 7. Depression. 8. Tobacco use. HISTORY OF PRESENT ILLNESS/HOSPITAL COURSE: Ashanti Herr is a 24-year-old white female with past medical history significant for asthma, anxiety, depression, and panic disorder, who presented to emergency department on for increased shortness of breath, wheezing, and cough. For further details , please see the admitting history and physical written by Dr. Andriy Neal. In brief, the patient was recently treated for an asthma exacerbation outpatient from the Urgent Care and was given 10 days of prednisone; however, the patient felt little relief of her ongoing shortness of breath but had noted days of worsening once the prednisone was completed. The patient presented initially with hypoxia and was initially requiring 2 L of oxygen via nasal cannula; however, during her hospital stay, returned to only room air need and had no ambulatory hypoxia. The patient improved greatly with her p.o. steroids , her home high-dose inhale corticosteroids. The equivalent of her home Advair was continued with Dulera inhaler and DuoNebs were used. Dr. Martin saw the patient in consultation and agreed with the management and recommended that the patient has assistance with her smoking cessation as well as outpatient PFTs and sleep study. Dr. Martin agreed with adding Spiriva to her medications to increase therapy for her asthma. The patient does admit to poor medication adherence, however, she tells me that she is most well adhered to her Advair inhaler. We thoroughly discussed habits to improve medication adherence and additionally discussed smoking cessation techniques. She was seen by smoking cessation nurse who will be following her outpatient. The patient's, ultimately by date of discharge, wheezing was resolved and was no longer dyspneic and felt safe for discharge. She is afebrile during the entirety of her hospital stay. PHYSICAL EXAMINATION ON DAY OF DISCHARGE: General: Obese young white female sitting in hospital chair, appearing comfortable, in no acute distress. Head: Normocephalic, atraumatic. Eyes: PERRL. Sclerae anicteric. ENT: Mucous membranes moist. Lungs: Trace rhonchi at bilateral bases, however, clear to auscultation. Cardio: Regular rate and rhythm without murmurs, rubs, or gallops. Abdomen: Soft, nontender, and nondistended. Extremities: No clubbing , cyanosis, or edema. Neuro: The patient is alert and oriented x3. No focal deficits. Able to move all extremities. Stable gait. DISCHARGE PLAN: Diet: Regular, unrestricted diet. Activity: The patient may return to normal activity as tolerated. Work and school excuses were provided to the patient for the time of her hospital stay including the day after discharge. The patient is advised to follow up with her primary care provider within 1 week to ensure further improvement of her respiratory status. She is to follow up with Dr. Martin in outpatient setting likely within 1 month because she needs to have PFTs and sleep study. It may additionally be of benefit for the patient to have additional allergy testing and she and I discussed ways to reduce environmental allergens as well dust mite allergens in her lifestyle to reduce future exacerbations. She will be followed by a smoking cessation nurse in the outpatient setting. The patient had a pulmonary nodule during her last hospitalization in November and it will be followed up in the outpatient CT. Additionally, the patient and I discussed that the patient would like to use Wellbutrin to assist her smoking cessation; however, this would not be safe with her Abilify. If the patient is adamant about using Wellbutrin for smoking cessation, then this should be prescribed by psychiatrist and likely with adjustment of her Abilify; however, she is currently stable for current Abilify regimen. The patient agrees with avoiding Wellbutrin at this time. The patient is advised to return to the emergency department if she experiences fever or chills, shortness of breath is not resolved by her rescue inhaler or DuoNebs, or chest pain. DISCHARGE MEDICATIONS: New medications: 1. Spiriva 1.25 mcg inhaled daily. 2. Prednisone 50 mg x5 days and 40 mg x3 days and 30 mg x3 days and 15 mg x3 days then 10 mg x3 days, and then discontinue. 3. Nicotine patch 21 mg transdermally daily. 4. Nicotine gum 2 mg p.o. q.2 hours p.r.n. cravings. 5. Tessalon 100 mg p.o. b.i.d. p.r.n. cough. Continued home medications: 1. Tina 180 mg p.o. daily. 2. Albuterol inhaler 1 puff inhale q.6 hours p.r.n. shortness of breath and wheezing. 3. Albuterol nebulization 2.5 mg inhale q.6 hours p.r.n. shortness of breath/ wheezing. 4. Abilify 10 mg p.o. daily. 5. Protonix 20 mg p.o. daily. 6. Singulair 10 mg p.o. daily. 7. Remeron 30 mg p.o. at bedtime p.r.n. insomnia. 8. [place] 600 mg p.o. b.i.d. 9. Advair 500 mg/50 mg 1 puff inhale b.i.d. 10. Valtrex 500 mg p.o. daily. 11. Flonase 1 nasal spray both nares daily. 12. Adderall 30 mg p.o. Wednesday, Wednesday, Wednesday. 13. Vyvanse 70 mg p.o. daily. CONDITION ON DISCHARGE: Stable. DISPOSITION: Home. TIME SPENT: Approximately 35 minutes was spent on this discharge, approximately half the time was spent at bedside evaluating the patient, discussing the plan of care. ARGENTINA SCOTT [id number]/[facility] #: [id number] [facility] HOSPITALRambo
== END 2019-03-14 12:20 | disposition home or self-care (01) ==
LOC: ED 16:26 → MED 21:20
PROVIDERS: ADMIT Internal Medicine; ATTEND Internal Medicine
DX: J45.902 Unspecified asthma with status asthmaticus (principal); A60.00 Herpesviral infection of urogenital system, unspecified; F41.9 Anxiety disorder, unspecified; F43.10 Post-traumatic stress disorder, unspecified; F41.0 Panic disorder [episodic paroxysmal anxiety]; F31.9 Bipolar disorder, unspecified; F32.9 Major depressive disorder, single episode, unspecified; F17.210 Nicotine dependence, cigarettes, uncomplicated; Z79.899 Other long term (current) drug therapy; Z87.442 Personal history of urinary calculi
CPT/HCPCS: 36415; 71046; 80053; 83605; 83735; 84702; 85025; 85379; 86140; 94640; 96365; 96366; 96372; 96375; 99284; 99406; A9270-GY; G0378; J1650; J2930; J3475; J3535; J7512

== ENCOUNTER 2019-03-31 19:51 | Emergency (ER) | payer OTHER ==
--- NOTE | 2019-03-31 20:44 | ED ---
Psychiatric Complaint - HPI Summary HPI Summary: 24 year old F brought in by [employer] police on 9.41 to [facility] complains of worsening depression and suicidal ideation since minutes prior to arrival. Patient states her mother called [employer] police to do welfare check on patient because mother thought patient had suicidal plan. Patient denies suicidal plan. 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 Patient states that recently she has been sleeping a lot and not eating that much. Symptoms aggravated by recent stress. Symptoms alleviated by nothing. Patient reports that her finance is part of her support system. Patient denies fever, chills, erythema of eyes, sore throat, chest pain, shortness of breath, cough, abdominal pain, nausea/vomiting, dysuria, hematuria , myalgia, edema, rash, or dizziness. Hx suicidal ideation. Hx suicidal attempt. Patient states that in the past, she has tried to commit suicide by taking medications and cutting herself but no recent suicide attempts. She states she has been to the ED before. Medications reviewed. - History Of Current Complaint Chief Complaint: EDMentalHealth Time Seen by Provider: 03/31/19 20:09 Hx Obtained From: Patient Onset/Duration: Lasting Hours, Still Present Timing: Constant Aggravating Factor(s): Recent Stress Alleviating Factor(s): Nothing Associated Signs And Symptoms: Positive: Negative - fever, chills, erythema of eyes, sore throat, chest pain, shortness of breath, cough, abdominal pain, nausea/vomiting, dysuria, hematuria, myalgia, edema, rash, or dizziness Has Suicidal: Reports: Thoughts. Denies: With A Plan - Allergies/Home Medications Allergies/Adverse Reactions: Allergies Allergy/AdvReac Type Severity Reaction Status Date / Time metoclopramide [From Reglan] Allergy Itching Verified 03/31/19 19:57 PMH/Surg Hx/FS Hx/Imm Hx Endocrine/Hematology History: Denies: Hx Anticoagulant Therapy, Hx Diabetes, Hx Thyroid Disease Cardiovascular History: Denies: Hx Hypertension, Hx Pacemaker/ICD Respiratory History: Reports: Hx Asthma, Hx Pneumonia, Hx Seasonal Allergies Denies: Hx Chronic Obstructive Pulmonary Disease (COPD) GI History: Denies: Hx Ulcer History: Reports: Hx Kidney Stones Denies: Hx Renal Disease Sensory History: Reports: Hx Contacts or Glasses Denies: Hx Hearing Aid Opthamlomology History: Reports: Hx Contacts or Glasses Neurological History: Reports: Hx Migraine, Other Neuro Impairments/Disorders - Vertigo Denies: Hx Dementia, Hx Seizures Psychiatric History: Reports: Hx Anxiety - on prozac, Hx Attention Deficit Hyperactivity Disorder, 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 - Immunization History Date of Tetanus Vaccine: up to date per pt Infectious Disease History: No Infectious Disease History: Denies: Hx Clostridium Difficile, Hx Hepatitis, Hx Human Immunodeficiency Virus (HIV), Hx of Known/Suspected MRSA, Hx Shingles, Hx Tuberculosis, Hx Known/ Suspected VRE, Hx Known/Suspected VRSA, History Other Infectious Disease, Traveled Outside the [place] in Last 30 Days - Family History Known Family History: Positive: Respiratory Disease - asthma in brother - Social History Alcohol Use: Rare Hx Substance Use: Yes Substance Use Type: Reports: Marijuana Substance Use Comment - Amount & Last Used: HX MARIJUANA USE in past Hx Tobacco Use: Yes - quit 2 weeks ago Smoking Status (MU): Former Smoker Type: Cigarettes Amount Used/How Often: 1 pk/wk Have You Smoked in the Last Year: Yes Review of Systems Negative: Fever, Chills Negative: Erythema Negative: Sore Throat Negative: Chest Pain Negative: Shortness Of Breath, Cough Negative: Abdominal Pain, Vomiting, Nausea Negative: dysuria, hematuria Negative: Myalgia, Edema Negative: Rash Neurological: Negative - Dizziness Positive: Depressed, Other - suicidal ideation; NEG: suicidal plan All Other Systems Reviewed And Are Negative: Yes Physical Exam - Summary Physical Exam Summary: Constitutional: Well-developed, Well-nourished, Alert. (-) Distressed Skin: Warm, Dry HENT: Normocephalic; Atraumatic Eyes: Conjunctiva normal Neck: Musculoskeletal ROM normal neck. (-) JVD, (-) Stridor, (-) Tracheal deviation Cardio: Rhythm regular, rate normal, Heart sounds normal; Intact distal pulses; The pedal pulses are 2+ and symmetric. Radial pulses are 2+ and symmetric. (-) Murmur Pulmonary/Chest wall: Effort normal. (-) Respiratory distress, (-) Wheezes, (-) Rales Abd: Soft, (-) tenderness, (-) Distension, (-) Guarding, (-) Rebound Musculoskeletal: (-) Edema Lymph: (-) Cervical adenopathy Neuro: Alert, Oriented x3 Psych: Mood and affect Normal Triage Information Reviewed: Yes Vital Signs On Initial Exam: Initial Vitals Temp Pulse Resp BP Pulse Ox 97.7 F 103 16 143/107 95 03/31/19 19:53 03/31/19 19:53 03/31/19 19:53 03/31/19 19:53 03/31/19 19:53 Vital Signs Reviewed: Yes Procedures - Sedation Patient Received Moderate/Deep Sedation with Procedure: No Diagnostics - Vital Signs Vital Signs Temp Pulse Resp BP Pulse Ox 03/31/19 19:53 97.7 F 103 16 143/107 95 - Laboratory Result Diagrams: 03/31/19 20:45 03/31/19 20:46 Lab Statement: Any lab studies that have been ordered have been reviewed, and results considered in the medical decision making process. Re-Evaluation - Re-Evaluation First Eval Re-Evaluation Time: 21:15 Change: Unchanged Comment: patient is medically cleared for MHE Course/Dx - Course Course Of Treatment: 24 year old F brought in by [employer] police on 9.41 complains of worsening depression and suicidal ideation since minutes prior to arrival. Patient states her mother called [employer] police to do welfare check on patient because mother thought patient had suicidal plan. Patient denies suicidal plan. Patient states she did not mean to say she had suicidal ideation. Hx suicidal ideation. Hx suicidal attempt. Hx ED visit for psychiatric complaint. Bloodwork results with no significant abnormalities except for WBC 11.7, RBC 5.08, MPV 6.8, absolute neuts 8.6, BUN/creatinine 22.4, glucose 118. Toxicology results with no significant abnormalities except for lithium <0.10. Mental health textile machinery sales representative Nanette reviewed case with Dr. Rojas, psychiatry. They recommend discharge. The patient will be discharged. - Differential Dx/Clinical Impression Provider Diagnosis: Bipolar disorder, Depression Discharge ED - Sign-Out/Discharge Documenting (check all that apply): Patient Departure - Discharge - Discharge Plan Condition: Stable Referrals: Markus Levine MD [Primary Care Provider] - - Attestation Statements Document Initiated by Scribe: Yes Documenting Scribe: Kayce Huggins Provider For Whom Scribe is Documenting (Include Credential): Magdaleno Barker MD Scribe Attestation: IKayce, scribed for Magdaleno Barker MD on 03/31/19 at 2134. Status of Scribe Document: Ready
[2019-03-31 21:00] LABS: ABS Basophils 0.1 10^3/ul (0-0.2); ABS Eosinophils 0.1 10^3/ul (0-0.6); ABS Lymphocytes 2.3 10^3/ul (1.0-4.8); ABS Monocytes 0.6 10^3/ul (0-0.8); ABS Neutrophils 8.6 10^3/ul (1.5-7.7); Eosinophil % 1.1 %; Hematocrit 44 % (35-47); Hemoglobin 14.4 g/dL (12.0-16.0); Lymphocyte % 19.3 %; Mean Corpuscular HGB Conc 33 g/dL (31-36); Mean Corpuscular Hemoglobin 28 pg (27-31); Mean Corpuscular Volume 86 fL (80-97); Mean Platelet Volume 6.8 fL (7.4-10.4); Platelet Count 312 10^3/uL (150-450); Red Blood Count 5.08 10^6 /uL (3.70-4.87); Red Cell Distribution Width 14 % (10-15); White Blood Count 11.7 10^3/uL (3.5-10.8)
[2019-03-31 21:12] LABS: ALT 20 U/L (7-52); AST 16 U/L (13-39); Albumin/Globulin Ratio 1.3 (1-3); Alkaline Phosphatase 79 U/L (34-104); Anion Gap 8 mmol/L (2-11); BUN/Creatinine Ratio 22.4 (8-20); Blood Urea Nitrogen 17 mg/dL (6-24); CO2 Carbon Dioxide 26 mmol/L (22-32); Calcium 9.5 mg/dL (8.6-10.3); Chloride 105 mmol/L (101-111); EGFR African American 112.2 (>60); EGFR Non-African American 92.7 (>60); Glucose 118 mg/dL (70-100); Potassium 3.9 mmol/L (3.5-5.0); Sodium 139 mmol/L (135-145)
[2019-03-31 21:20] LABS: Acetaminophen < 15 mcg/mL; Alcohol < 10 mg/dL (<10); Lithium < 0.10 mmol/L (0.6-1.2); Salicylate < 2.50 mg/dL (<30)
[2019-03-31 21:34] LABS: TSH (Thyroid Stimulating Horm) 1.24 mcIU/mL (0.34-5.60)
[2019-03-31 21:54] VITALS: BP 114/79
== END 2019-03-31 21:50 | disposition home or self-care (01) ==
LOC: ED 19:51
DX: F31.9 Bipolar disorder, unspecified (principal); J45.909 Unspecified asthma, uncomplicated; F41.9 Anxiety disorder, unspecified; F43.10 Post-traumatic stress disorder, unspecified; Z87.891 Personal history of nicotine dependence; Z87.442 Personal history of urinary calculi; Z79.899 Other long term (current) drug therapy; Z88.8 Allergy status to other drugs, medicaments and biological substances
CPT/HCPCS: 36415; 80053; 80178; 80320; 80329; 84443; 85025; 99285; G0480

== ENCOUNTER 2019-04-25 21:15 | Inpatient (IN) | payer OTHER ==
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
[2019-04-25 22:36] LABS: ABS Basophils 0.1 10^3/ul (0-0.2); ABS Eosinophils 0.2 10^3/ul (0-0.6); ABS Lymphocytes 2.3 10^3/ul (1.0-4.8); ABS Monocytes 0.5 10^3/ul (0-0.8); ABS Neutrophils 5.5 10^3/ul (1.5-7.7); Eosinophil % 2.2 %; Hematocrit 40 % (35-47); Hemoglobin 13.7 g/dL (12.0-16.0); Lymphocyte % 26.6 %; Mean Corpuscular HGB Conc 34 g/dL (31-36); Mean Corpuscular Hemoglobin 30 pg (27-31); Mean Corpuscular Volume 87 fL (80-97); Mean Platelet Volume 7.5 fL (7.4-10.4); Nucleated Red Blood Cells % 0.1; Platelet Count 282 10^3/uL (150-450); Red Cell Distribution Width 15 % (10-15); White Blood Count 8.5 10^3/uL (3.5-10.8)
[2019-04-25 22:54] LABS: ALT 24 U/L (7-52); AST 22 U/L (13-39); Albumin 3.8 g/dL (3.2-5.2); Albumin/Globulin Ratio 1.4 (1-3); Alkaline Phosphatase 81 U/L (34-104); Anion Gap 8 mmol/L (2-11); BUN/Creatinine Ratio 11.3 (8-20); Blood Urea Nitrogen 9 mg/dL (6-24); CO2 Carbon Dioxide 25 mmol/L (22-32); Calcium 9.2 mg/dL (8.6-10.3); Chloride 108 mmol/L (101-111); EGFR African American 105.8 (>60); EGFR Non-African American 87.4 (>60); Globulin 2.7 g/dL (2-4); Glucose 134 mg/dL (70-100); Potassium 3.5 mmol/L (3.5-5.0); Sodium 141 mmol/L (135-145); Total Protein 6.5 g/dL (6.4-8.9)
[2019-04-25 22:59] LABS: Acetaminophen < 15 mcg/mL; Alcohol < 10 mg/dL (<10); Salicylate < 2.50 mg/dL (<30)
[2019-04-25 23:00] LABS: HCG Pregnancy < 0.60 mIU/mL
[2019-04-25 23:14] LABS: TSH (Thyroid Stimulating Horm) 1.23 mcIU/mL (0.34-5.60)
[2019-04-26] MEDS ORDERED: LORazepam TAB(*) 1 MG PO ONE (00:17)
[2019-04-26 00:44] LABS: Urine Benzodiazepine Screen None Detected (None Detect); Urine Opiates Screen None Detected (None Detect)
[2019-04-26 01:24] LABS: Urine Appearance Clear; Urine Bilirubin Negative (Negative); Urine Blood 2+ (Negative); Urine Color Yellow; Urine Glucose Negative (Negative); Urine Ketones Negative (Negative); Urine Nitrite Negative (Negative); Urine Protein Negative (Negative); Urine Specific Gravity 1.013 (1.010-1.030); Urine Urobilinogen Negative (Negative)
[2019-04-26 01:27] LABS: Urine Bacteria Absent (Absent); Urine Red Blood Cell Trace(0-2/hpf) (Absent); Urine Squamous Epithelial Cell Present (Absent); Urine White Blood Cell 3+(>20/hpf) (Absent)
--- NOTE | 2019-04-26 07:36 | ED ---
Progress - Progress Note Progress Note: The patient is a sign-out from Dr. Javier Montgomery MD, to Dr. Hugh Barnard MD, at change of shift at 0700 on 04/26/2019, pending mental health evaluation and disposition. 1036 - Fabiola, mental health server assistant, states that the patient has been evaluated by Dr. Keating, and he has determined voluntary admission with diagnosis of depression NOS, suicidal ideation with plan Course/Dx - Course Course Of Treatment: The patient is a sign-out from Dr. Javier Montgomery MD, to Dr. Hugh Barnard MD, at change of shift at 0700 on 04/26/2019, pending mental health evaluation and disposition. Dr. Keating has evaluated the patient and has determined that she should be admitted. Fabiola from mental health states diagnosis of depression NOS and suicidal ideation with plan. It is a voluntary admission. - Diagnoses Provider Diagnoses: Depression, Suicidal ideation - Provider Notifications Discussed Care Of Patient With: Fabiola Abbott - mental health server assistant Time Discussed With Above Provider: 10:36 Instructed by Provider To: Other - Fabiola states that Dr. Keating, psychiatry, has evaluated the patient and determined that she will be be admitted Discharge ED - Sign-Out/Discharge Documenting (check all that apply): Patient Departure - Patient will be admitted to mental health unit., Receiving Sign-Out Receiving patient FROM: Javier Montgomery - Patient is a sign-out from Dr. Javier Montgomery MD, at 0700 on 04/26/2019, pending mental health evaluation and disposition. - Discharge Plan Condition: Stable [place] [place]errals: Markus Levine MD [Primary Care Provider] - - Attestation Statements Document Initiated by Scribe: Yes Documenting Scribe: Riana Hernandez Provider For Whom Saroj is Documenting (Include Credential): Dr. Hugh Barnard MD Scribe Attestation: Riana Jung scribed for Dr. Hugh Barnard MD on 04/26/19 at 1036. Status of Scribe Document: Ready Procedures - Sedation Patient Received Moderate/Deep Sedation with Procedure: No
[2019-04-26] MEDS ORDERED: Al Hydrox/Mg Hydrox/Simet LIQ* 30 ML UDC PO PRN (10:25)
[2019-04-26] MEDS ORDERED: Acetaminophen TAB* 325 MG PO PRN (10:25)
[2019-04-26] MEDS ORDERED: Albuterol 2.5 MG/3 ML NEB.SOL* (0.083%) INH PRN (10:26)
[2019-04-26] MEDS ORDERED: Benzonatate CAP* 100 MG PO PRN (10:26)
[2019-04-26] MEDS ORDERED: Albuterol HFA INHALER* 8 gm MDI INH PRN ×2 (10:26→14:16)
[2019-04-26] MEDS ORDERED: Mirtazapine TAB* 15 MG PO PRN ×2 (10:26→14:16)
[2019-04-26] MEDS: hydrOXYzine HCL TAB* 50 MG PO PRN (14:45)
[2019-04-26] MEDS: Lithium Carbonate ER (NF) 300 MG TAB.ER PO SCH (20:09)
[2019-04-26] MEDS: Nicotine Patch Removal NOTE PATCH OFF SCH (20:09)
[2019-04-26] MEDS: Mometasone/Formoter 200/5 MDI INH SCH (20:10)
[2019-04-26] MEDS ORDERED: Fluticasone-Salmeterol 500-50* DISKUS INH SCH (21:00)
[2019-04-26] MEDS ORDERED: Lithium Carbonate ER (NF) 300 MG TAB.ER PO SCH (21:00)
[2019-04-27] MEDS ORDERED: ARIPiprazole TAB* 5 MG PO SCH ×2 (09:00)
[2019-04-27] MEDS ORDERED: ValACYclovir (*) 500 MG TAB PO SCH (09:00)
[2019-04-27] MEDS ORDERED: Fluticasone NASAL SPRAY 50MCG* 16 gm SPRAY BTL BOTH NARES SCH (09:00)
[2019-04-27] MEDS ORDERED: TIOTROPIUM BROMIDE 1.25 MCG IN SCH (09:00)
[2019-04-27] MEDS: Nicotine PATCH 21 MG/24 HR* PATCH TRANSDERM SCH (09:38)
[2019-04-27] MEDS: Cetirizine* 10 MG TAB PO SCH (09:38)
[2019-04-27] MEDS: Montelukast Sodium TAB* 10 MG PO SCH (09:39)
[2019-04-27] MEDS: Lithium Carbonate ER (NF) 300 MG TAB.ER PO SCH (09:40)
[2019-04-27] MEDS: ValACYclovir (*) 500 MG TAB PO SCH (09:40)
[2019-04-27] MEDS: Pantoprazole TAB * 40 MG TAB PO SCH (09:41)
[2019-04-27] MEDS: hydrOXYzine HCL TAB* 50 MG PO PRN (09:42)
[2019-04-27] MEDS: Fluticasone NASAL SPRAY 50MCG* 16 gm SPRAY BTL BOTH NARES SCH (09:43)
[2019-04-27] MEDS: Mometasone/Formoter 200/5 MDI INH SCH (09:43)
[2019-04-27] MEDS: TIOTROPIUM BROMIDE 1.25 MCG IN SCH (09:46)
[2019-04-27 11:38] LABS: Lithium < 0.10 mmol/L (0.6-1.2)
[2019-04-27] MEDS: Gabapentin CAP(*) 300 MG PO SCH ×2 (13:19→17:19)
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
[2019-04-27] MEDS ORDERED: Lithium Carbonate ER (NF) 300 MG TAB.ER PO ONE (21:00)
[2019-04-27] MEDS ORDERED: ARIPiprazole TAB* 5 MG PO ONE (21:00)
[2019-04-28] MEDS: Mometasone/Formoter 200/5 MDI INH SCH ×3 (01:28→20:26)
[2019-04-28] MEDS: Gabapentin CAP(*) 300 MG PO SCH ×5 (01:28→20:22)
[2019-04-28] MEDS: Nicotine Patch Removal NOTE PATCH OFF SCH ×2 (01:29→20:59)
[2019-04-28 07:57] LABS: HDL Cholesterol 63.5 mg/dL
[2019-04-28] MEDS: Nicotine PATCH 21 MG/24 HR* PATCH TRANSDERM SCH (09:34)
[2019-04-28] MEDS: Pantoprazole TAB * 40 MG TAB PO SCH (09:35)
[2019-04-28] MEDS: ValACYclovir (*) 500 MG TAB PO SCH (09:35)
[2019-04-28] MEDS: Montelukast Sodium TAB* 10 MG PO SCH (09:35)
[2019-04-28] MEDS: Cetirizine* 10 MG TAB PO SCH (09:36)
[2019-04-28] MEDS: TIOTROPIUM BROMIDE 1.25 MCG IN SCH (09:36)
[2019-04-28] MEDS: Fluticasone NASAL SPRAY 50MCG* 16 gm SPRAY BTL BOTH NARES SCH (09:38)
--- NOTE | 2019-04-28 12:54 | PN ---
Subjective - Subjective Date of Service: 04/28/19 Service Type: 65176 Hosp care 15 min low complexity Subjective: Ashanti is found in bed around 10:45. She is not sleeping, but she states she wants to because she is feeling depressed. We discuss the skill of "opposite action" and she is asked to go to groups and stay out of bed. This statement is reiterated by Apurva Dunn LMSW, who comes in at the end of our conversation. Ashanti also states that she misses her children. Objective - General Observations Appearance: Disheveled Appears Stated Age: Yes Stature: Overweight Posture: Slumped Eye Contact: Average Behavior/Activity: Slowed - Interaction Observations Attitude Towards Examiner: Cooperative, Defensive Stated Mood: Dysphoric Affect: Blunted Speech Pattern/Tone: Clear, Normal Volume Thought Process: Coherent Perception: WNL Thought Content: Preoccupation/Ruminations, Depressive, Self-Deprecatory Thought Process: Lethality: Passive Wish Hallucination Type: None Delusion Type: None - Cognitive Function Orientation: A&O x 4 Level of Consciousness: Awake, Alert, Appropriate Cognition: WNL Estimated Intelligence: Normal Insight: WNL Judgment Within Normal Limits: No Ability to Make Reasonable Decisions: Mildly Impaired - Medication Compliance Cooperative with Inpatient Medication Regimen: Yes - Group Participation Participates in Group Activities: Partial Assessment - Assessment Merits Inpatient Hospitalization: For Immediate Safety Inpatient DSM-V Dx: F31.4 Clinical Impression: Ashanti is a 24-year-old woman who is diagnosed with bipolar 1 disorder, current episode depressed, severe without psychotic features is admitted related to suicidal ideation following a month of depression and ensuing severe stressors such as losing a job and being evicted from her home. Plan - Plan Treatment Plan: Name: ASHANTI KELLY Birthdate: 1995 [id number] 04/28/19 We have moved Ashanti's lithium ER to bedtime and increased the Abilify she was taking from 10 to 15 mg. We discontinued Prozac, as well. Continued Medication Management: Different Medication Medications: Current Medications Acetaminophen (Tylenol Tab*) 650 mg PO Q4H PRN PRN Reason: for pain; or Temp >101 F Al Hydrox/Mg Hydrox/Simethicone (Maalox Plus*) 30 ml PO Q4H PRN PRN Reason: INDIGESTION Albuterol (Ventolin 2.5 Mg/3 Ml Neb.Rajwinder*) 2.5 mg INH Q6H PRN PRN Reason: WHEEZING Albuterol (Ventolin Hfa Inhaler*) 1 puff INH Q6H PRN PRN Reason: SOB/WHEEZING Aripiprazole (Abilify Tab*) 15 mg PO BEDTIME [facility]LLY Benzonatate (Tessalon Cap*) 100 mg PO BID PRN PRN Reason: COUGH Cetirizine HCl (Zyrtec*) 10 mg PO DAILY [facility]; Protocol Last Admin: 04/28/19 09:36 Dose: 10 mg Fluticasone Propionate (Flonase Nasal [place] 50mcg*) 1 spray BOTH NARES DAILY [facility] Last Admin: 04/28/19 09:38 Dose: 1 spray Gabapentin (Neurontin Cap(*)) 300 mg PO QID [facility] Last Admin: 04/28/19 09:35 Dose: 300 mg Hydroxyzine HCl (Atarax Tab*) 50 mg PO Q6H PRN PRN Reason: anxiety Last Admin: 04/27/19 09:42 Dose: 50 mg [place] Carbonate ([place] Carbonate Er (Nf)) 1,200 mg PO BEDTIME [facility]; Protocol Mirtazapine (Remeron Tab*) 30 mg PO BEDTIME PRN PRN Reason: INSOMNIA Mometasone Furoate/Formoterol Fumar (Dulera 200/5 Mdi*) 2 puff INH BID [facility] Last Admin: 04/28/19 09:38 Dose: 2 puff Montelukast Sodium (Singulair Tab*) 10 mg PO DAILY [facility] Last Admin: 04/28/19 09:35 Dose: 10 mg Nicotine (Nicotine Patch 21 Mg/24 Hr*) 1 patch TRANSDERM DAILY [facility] Last Admin: 04/28/19 09:34 Dose: 1 patch Nicotine Polacrilex (Nicotine Gum*) 2 mg PO Q2H PRN PRN Reason: CRAVING Non-Formulary Medication (Tiotropium [place] [Spiriva Respimat]) 1.25 mcg IN DAILY [facility] Last Admin: 04/28/19 09:36 Dose: Not Given Pantoprazole Sodium (Protonix Tab*) 40 mg PO QAM [facility] Last Admin: 04/28/19 09:35 Dose: 40 mg Pharmacy Profile Note (Nicotine Patch Removal Note*) 1 note PATCH OFF 2100 [facility] Last Admin: 04/28/19 01:29 Dose: 1 note Valacyclovir HCl ([facility]altrex 500 Mg (*)) [facility] Protocol Last Admin: 04/28/19 09:35 Dose: 500 mg - Discharge Plan Discharge Plan: Outpatient Follow Up Outpatient Program: [facility]
[2019-04-28] MEDS ORDERED: LORazepam TAB(*) 1 MG ONE (19:42)
[2019-04-28] MEDS: ARIPiprazole TAB* 15 MG PO SCH (20:22)
[2019-04-28] MEDS: Lithium Carbonate ER (NF) 300 MG TAB.ER PO SCH (20:23)
[2019-04-28] MEDS: LORazepam TAB(*) 1 MG PO PRN (20:25)
[2019-04-29] MEDS: LORazepam TAB(*) 1 MG PO PRN ×4 (05:30→17:30)
[2019-04-29] MEDS: Nicotine* 2MG (FRUIT FLAVOR) GUM PO PRN (05:30)
[2019-04-29] MEDS: Nicotine PATCH 21 MG/24 HR* PATCH TRANSDERM SCH (08:06)
[2019-04-29] MEDS: Fluticasone NASAL SPRAY 50MCG* 16 gm SPRAY BTL BOTH NARES SCH (09:14)
[2019-04-29] MEDS: Mometasone/Formoter 200/5 MDI INH SCH ×2 (09:14→21:03)
[2019-04-29] MEDS: Gabapentin CAP(*) 300 MG PO SCH ×4 (09:15→20:57)
[2019-04-29] MEDS: ValACYclovir (*) 500 MG TAB PO SCH (09:15)
[2019-04-29] MEDS: Montelukast Sodium TAB* 10 MG PO SCH (09:16)
[2019-04-29] MEDS: Pantoprazole TAB * 40 MG TAB PO SCH (09:16)
[2019-04-29] MEDS: Cetirizine* 10 MG TAB PO SCH (09:16)
[2019-04-29] MEDS: TIOTROPIUM BROMIDE 1.25 MCG IN SCH (10:24)
[2019-04-29] MEDS: Lithium Carbonate ER (NF) 300 MG TAB.ER PO SCH (20:56)
[2019-04-29] MEDS: ARIPiprazole TAB* 15 MG PO SCH (20:56)
[2019-04-29] MEDS: Nicotine Patch Removal NOTE PATCH OFF SCH (21:05)
[2019-04-30] MEDS: LORazepam TAB(*) 1 MG PO PRN ×3 (05:10→16:31)
[2019-04-30] MEDS: Nicotine* 2MG (FRUIT FLAVOR) GUM PO PRN (05:10)
[2019-04-30] MEDS: Cetirizine* 10 MG TAB PO SCH (09:15)
[2019-04-30] MEDS: Pantoprazole TAB * 40 MG TAB PO SCH (09:16)
[2019-04-30] MEDS: Gabapentin CAP(*) 300 MG PO SCH ×3 (09:16→21:53)
[2019-04-30] MEDS: ValACYclovir (*) 500 MG TAB PO SCH (09:16)
[2019-04-30] MEDS: Montelukast Sodium TAB* 10 MG PO SCH (09:16)
[2019-04-30] MEDS: Nicotine PATCH 21 MG/24 HR* PATCH TRANSDERM SCH (09:16)
[2019-04-30] MEDS: Fluticasone NASAL SPRAY 50MCG* 16 gm SPRAY BTL BOTH NARES SCH (09:17)
[2019-04-30] MEDS: Mometasone/Formoter 200/5 MDI INH SCH ×2 (09:17→21:55)
[2019-04-30] MEDS: TIOTROPIUM BROMIDE 1.25 MCG IN SCH (09:21)
--- NOTE | 2019-04-30 17:49 | PN ---
Subjective - Subjective Date of Service: 04/30/19 Subjective: Ayse has been seclusive to her room, she learned of the passing of her daughter' s father recently and she was allowed to view the body. She endorses feeling overwhelmed, sad and anxious. She denies SI or urges for sib and she contracts for safety. She denies side effects from prescribed medications. Objective - General Observations Appearance: Neat Appears Stated Age: Yes Stature: Overweight Posture: WNL Behavior/Activity: WNL - Interaction Observations Attitude Towards Examiner: Cooperative Stated Mood: Dysphoric, Anxious Affect: Restricted Speech Pattern/Tone: Clear, Normal Volume Thought Process: Coherent, Goal Directed Perception: WNL Thought Content: WNL Hallucination Type: None Delusion Type: None - Cognitive Function Orientation: A&O x 4 Level of Consciousness: Alert Cognition: WNL Estimated Intelligence: Normal Judgment Within Normal Limits: Yes - Medication Compliance Cooperative with Inpatient Medication Regimen: Yes - Group Participation Participates in Group Activities: Yes Assessment - Assessment Merits Inpatient Hospitalization: [facility], For Discharge Planning Inpatient DSM-V Dx: F31.4 Clinical Impression: Ashanti is a 24-year-old woman who is diagnosed with bipolar 1 disorder, current episode depressed, severe without psychotic features is admitted related to suicidal ideation following a month of depression and ensuing severe stressors such as losing a job and being evicted from her home. Endorsing high level of emotional distress but denying suicidality and shiela for safety. Med management continues trial of [place] and Abilify. She agrees to staying out of bed unless it is bedtime. Plan - Plan Treatment Plan: Name: ASHANTI KELLY Birthdate: 1995 [id number] 04/28/19 We have moved Ashanti's lithium ER to bedtime and increased the Abilify she was taking from 10 to 15 mg. We discontinued Prozac, as well. Continued Medication Management: Continue Outpt Medication Medications: Current Medications Acetaminophen (Tylenol Tab*) 650 mg PO Q4H PRN PRN Reason: for pain; or Temp >101 F Al Hydrox/Mg Hydrox/Simethicone (Maalox Plus*) 30 ml PO Q4H PRN PRN Reason: INDIGESTION Albuterol (Ventolin 2.5 Mg/3 Ml Neb.Rajwinder*) 2.5 mg INH Q6H PRN PRN Reason: WHEEZING Albuterol (Ventolin Hfa Inhaler*) 1 puff INH Q6H PRN PRN Reason: SOB/WHEEZING Aripiprazole (Abilify Tab*) 15 mg PO BEDTIME [facility] Last Admin: 04/29/19 20:56 Dose: 15 mg Benzonatate (Tessalon Cap*) 100 mg PO BID PRN PRN Reason: COUGH Cetirizine HCl (Zyrtec*) 10 mg PO DAILY [facility]; Protocol Last Admin: 04/30/19 09:15 Dose: 10 mg Fluticasone Propionate (Flonase Nasal [place] 50mcg*) 1 spray BOTH NARES DAILY [facility] Last Admin: 04/30/19 09:17 Dose: 1 spray Gabapentin (Neurontin Cap(*)) 300 mg PO QID [facility] Last Admin: 04/30/19 14:29 Dose: Not Given Hydroxyzine HCl (Atarax Tab*) 50 mg PO Q6H PRN PRN Reason: anxiety Last Admin: 04/27/19 09:42 Dose: 50 mg [place] Carbonate ([place] Carbonate Er (Nf)) 1,200 mg PO BEDTIME [facility]; Protocol Last Admin: 04/29/19 20:56 Dose: 1,200 mg Lorazepam (Ativan Tab(*)) 1 mg PO Q4H PRN PRN Reason: .AGITATION/ANXIETY Last Admin: 04/30/19 16:31 Dose: 1 mg Mirtazapine (Remeron Tab*) 30 mg PO BEDTIME PRN PRN Reason: INSOMNIA Last Admin: 04/28/19 20:21 Dose: 30 mg Mometasone Furoate/Formoterol Fumar (Dulera 200/5 Mdi*) 2 puff INH BID [facility] Last Admin: 04/30/19 09:17 Dose: 2 puff Montelukast Sodium (Singulair Tab*) 10 mg PO DAILY [facility] Last Admin: 04/30/19 09:16 Dose: 10 mg Nicotine (Nicotine Patch 21 Mg/24 Hr*) 1 patch TRANSDERM DAILY [facility] Last Admin: 04/30/19 09:16 Dose: 1 patch Nicotine Polacrilex (Nicotine Gum*) 2 mg PO Q2H PRN PRN Reason: CRAVING Last Admin: 04/30/19 05:10 Dose: 2 mg Non-Formulary Medication (Tiotropium [place] [Spiriva Respimat]) 1.25 mcg IN DAILY [facility] Last Admin: 04/30/19 09:21 Dose: Not Given Pantoprazole Sodium (Protonix Tab*) 40 mg PO QAM [facility] Last Admin: 04/30/19 09:16 Dose: 40 mg Pharmacy Profile Note (Nicotine Patch Removal Note*) 1 note PATCH OFF 2100 [facility] Last Admin: 04/29/19 21:05 Dose: 1 note Valacyclovir HCl (Valtrex 500 Mg (*)) 500 mg PO QAM [facility]; Protocol Last Admin: 04/30/19 09:16 Dose: 500 mg - Discharge Plan Discharge Plan: Outpatient Follow Up Outpatient Program: [facility]
[2019-04-30] MEDS: Lithium Carbonate ER (NF) 300 MG TAB.ER PO SCH (21:52)
[2019-04-30] MEDS: ARIPiprazole TAB* 15 MG PO SCH (21:52)
[2019-04-30] MEDS: Nicotine Patch Removal NOTE PATCH OFF SCH (21:53)
[2019-05-01] MEDS: LORazepam TAB(*) 1 MG PO PRN (03:14)
[2019-05-01] MEDS: Nicotine PATCH 21 MG/24 HR* PATCH TRANSDERM SCH (09:56)
[2019-05-01] MEDS: Gabapentin CAP(*) 300 MG PO SCH (09:57)
[2019-05-01] MEDS: Montelukast Sodium TAB* 10 MG PO SCH (09:58)
[2019-05-01] MEDS: Cetirizine* 10 MG TAB PO SCH (09:58)
[2019-05-01] MEDS: Pantoprazole TAB * 40 MG TAB PO SCH (09:58)
[2019-05-01] MEDS: Mometasone/Formoter 200/5 MDI INH SCH ×2 (09:59→23:44)
[2019-05-01] MEDS: ValACYclovir (*) 500 MG TAB PO SCH (10:00)
[2019-05-01] MEDS: Fluticasone NASAL SPRAY 50MCG* 16 gm SPRAY BTL BOTH NARES SCH (10:00)
[2019-05-01] MEDS: TIOTROPIUM BROMIDE 1.25 MCG IN SCH (10:01)
[2019-05-01] MEDS: Nicotine* 2MG (FRUIT FLAVOR) GUM PO PRN (10:17)
--- NOTE | 2019-05-01 17:52 | PN ---
Subjective - Subjective Date of Service: 05/01/19 Service Type: 48588 Hosp care 35 min high complexity Subjective: Ashanti discussed her relationship with her ex who this weekend. She was getting caught up in some details that seemed less relevant to her grief, but it did seem to help her process what had happened to her, including that her other child's father also . Ashanti states she feels better than she did before the medication change. She states she is willing to get up and participate now, even though she is still tired. She is interested in leaving today, but I would prefer she stay an extra day and transition to some clonidine to help her sleep and to discontinue the Ativan. Objective - General Observations Appearance: Disheveled Appears Stated Age: Yes Stature: Overweight Posture: WNL Eye Contact: Average Behavior/Activity: WNL - Interaction Observations Attitude Towards Examiner: Cooperative, Anxious Stated Mood: Dysphoric, Anxious Affect: Full Speech Pattern/Tone: Clear, Appropriate, Normal Volume Thought Process: Coherent, Goal Directed Perception: WNL Thought Content: Depressive Hallucination Type: None Delusion Type: None - Cognitive Function Orientation: A&O x 4 Level of Consciousness: Awake, Alert, Appropriate Cognition: WNL Estimated Intelligence: Normal Insight: WNL Judgment Within Normal Limits: No Ability to Make Reasonable Decisions: Mildly Impaired - Medication Compliance Cooperative with Inpatient Medication Regimen: Yes - Group Participation Participates in Group Activities: Partial Assessment - Assessment Merits Inpatient Hospitalization: For Immediate Safety Inpatient DSM-V Dx: F31.4 Clinical Impression: Ashanti is a 24-year-old woman who is diagnosed with bipolar 1 disorder, current episode depressed, severe without psychotic features is admitted related to suicidal ideation following a month of depression and ensuing severe stressors such as losing a job and being evicted from her home. Endorsing high level of emotional distress but denying suicidality and shiela for safety. Med management continues trial of [place] and Abilify. She agrees to staying out of bed unless it is bedtime. Plan - Plan Treatment Plan: Name: ASHANTI KELLY Birthdate: 1995 [id number] 04/28/19 We have moved Ashanti's lithium ER to bedtime and increased the Abilify she was taking from 10 to 15 mg. We discontinued Prozac, as well. 05/01/19 Ashanti is satisfied with her medications as they are, but I am not comfortable with her leaving with a benzodiazepine prescription. Instead she will stay one more night to change to a clonidine sleeping aid that may also reduce her panicking during the day. Continued Medication Management: Different Medication Medications: Current Medications Acetaminophen (Tylenol Tab*) 650 mg PO Q4H PRN PRN Reason: for pain; or Temp >101 F Al Hydrox/Mg Hydrox/Simethicone (Maalox Plus*) 30 ml PO Q4H PRN PRN Reason: INDIGESTION Albuterol (Ventolin 2.5 Mg/3 Ml Neb.Rajwinder*) 2.5 mg INH Q6H PRN PRN Reason: WHEEZING Albuterol (Ventolin Hfa Inhaler*) 1 puff INH Q6H PRN PRN Reason: SOB/WHEEZING Aripiprazole (Abilify Tab*) 15 mg PO BEDTIME [facility] Last Admin: 04/30/19 21:52 Dose: 15 mg Benzonatate (Tessalon Cap*) 100 mg PO BID PRN PRN Reason: COUGH Cetirizine HCl (Zyrtec*) 10 mg PO DAILY [facility]; Protocol Last Admin: 05/01/19 09:58 Dose: 10 mg Clonidine HCl (Catapres Tab*) 0.1 mg PO BEDTIME [facility] Fluticasone Propionate (Flonase Nasal [place] 50mcg*) 1 spray BOTH NARES DAILY [facility] Last Admin: 05/01/19 10:00 Dose: 1 spray Gabapentin (Neurontin Cap(*)) 400 mg PO TID [facility] Hydroxyzine HCl (Atarax Tab*) 50 mg PO Q6H PRN PRN Reason: anxiety Last Admin: 04/27/19 09:42 Dose: 50 mg [place] Carbonate ([place] Carbonate Er (Nf)) 1,200 mg PO BEDTIME [facility]; Protocol Last Admin: 04/30/19 21:52 Dose: 1,200 mg Lorazepam (Ativan Tab(*)) 1 mg PO Q4H PRN PRN Reason: .AGITATION/ANXIETY Last Admin: 05/01/19 03:14 Dose: 1 mg Mometasone Furoate/Formoterol Fumar (Dulera 200/5 Mdi*) 2 puff INH BID [facility] Last Admin: 05/01/19 09:59 Dose: 2 puff Montelukast Sodium (Singulair Tab*) 10 mg PO DAILY [facility] Last Admin: 05/01/19 09:58 Dose: 10 mg Nicotine (Nicotine Patch 21 Mg/24 Hr*) 1 patch TRANSDERM DAILY [facility] Last Admin: 05/01/19 09:56 Dose: 1 patch Nicotine Polacrilex (Nicotine Gum*) 2 mg PO Q2H PRN PRN Reason: CRAVING Last Admin: 05/01/19 10:17 Dose: 2 mg Non-Formulary Medication (Tiotropium [place] [Spiriva Respimat]) 1.25 mcg IN DAILY [facility] Last Admin: 05/01/19 10:01 Dose: Not Given Pantoprazole Sodium (Protonix Tab*) 40 mg PO QAM [facility] Last Admin: 05/01/19 09:58 Dose: 40 mg Pharmacy Profile Note (Nicotine Patch Removal Note*) 1 note PATCH OFF 2100 [facility] Last Admin: 04/30/19 21:53 Dose: 1 note Valacyclovir HCl (Valtrex 500 Mg (*)) 500 mg PO QAM [facility]; Protocol Last Admin: 05/01/19 10:00 Dose: 500 mg
[2019-05-01] MEDS ORDERED: cloNIDine TAB* 0.1 MG PO SCH (21:00)
[2019-05-01] MEDS: Lithium Carbonate ER (NF) 300 MG TAB.ER PO SCH (22:25)
[2019-05-01] MEDS: Gabapentin CAP(*) 400 MG PO SCH (22:26)
[2019-05-01] MEDS: ARIPiprazole TAB* 15 MG PO SCH (22:26)
[2019-05-01] MEDS: Nicotine Patch Removal NOTE PATCH OFF SCH (23:45)
[2019-05-02] MEDS: Gabapentin CAP(*) 400 MG PO SCH ×2 (01:08→08:35)
[2019-05-02] MEDS: Gabapentin CAP(*) 300 MG PO SCH (01:11)
[2019-05-02] MEDS: Fluticasone NASAL SPRAY 50MCG* 16 gm SPRAY BTL BOTH NARES SCH (08:34)
[2019-05-02] MEDS: Pantoprazole TAB * 40 MG TAB PO SCH (08:35)
[2019-05-02] MEDS: Cetirizine* 10 MG TAB PO SCH (08:35)
[2019-05-02] MEDS: Mometasone/Formoter 200/5 MDI INH SCH (08:35)
[2019-05-02] MEDS: ValACYclovir (*) 500 MG TAB PO SCH (08:36)
[2019-05-02] MEDS: Montelukast Sodium TAB* 10 MG PO SCH (08:36)
[2019-05-02] MEDS: TIOTROPIUM BROMIDE 1.25 MCG IN SCH (08:46)
[2019-05-02] MEDS: Nicotine PATCH 21 MG/24 HR* PATCH TRANSDERM SCH (09:09)
[2019-05-02] MEDS: Nicotine* 2MG (FRUIT FLAVOR) GUM PO PRN (09:11)
[2019-05-02 10:42] VITALS: BP 121/76
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
== END 2019-05-02 11:05 | disposition home or self-care (01) | DRG 753 ==
LOC: ED 21:15 → BSU 04-26 10:25 → ED 04-26 12:25
PROVIDERS: ADMIT Psychiatry & Neurology Psychiatry; ATTEND Psychiatry & Neurology Psychiatry
DX: F31.4 Bipolar disorder, current episode depressed, severe, without psychotic features (principal); R45.851 Suicidal ideations; F41.9 Anxiety disorder, unspecified; J45.909 Unspecified asthma, uncomplicated; Z87.891 Personal history of nicotine dependence; Z79.899 Other long term (current) drug therapy; Z88.8 Allergy status to other drugs, medicaments and biological substances; Z81.8 Family history of other mental and behavioral disorders
CPT/HCPCS: 36415; 80053; 80061; 80178; 80307; 80320; 80329; 81003; 81015; 83036; 84443; 84702; 85025; 87086; 99222; 99231; 99233; 99238; 99284; A9270-GY; G0480

== ENCOUNTER 2019-06-29 09:56 | Emergency (ER) | payer SELFPAY ==
--- OUTSIDE RECORDS SUMMARY | 2019-06-29 10:02 | XMS REPORT ---
:1995 Author Organization [facility] Care Team Providers Name Role Phone YOLANDA RIBERA Primary Care Physician Unavailable Allergies, Adverse Reactions, Alerts Allergy Code CodeSystem Reaction Severity Criticality Status Start Substance Date Moderate Medications Medication Medication Medication Start Stop Route Dose Status Fill Code CodeSystem Date Date Instructions dextroamphetam 836012 RxNorm 2019- oral 30 mg completed for 30 ine-amphetamin 7- 08-28 capsule,e day(s) e xtended release 24hr dextroamphetam 091966 RxNorm 2018- oral 30 mg completed for 30 ine-amphetamin 4- 05-29 capsule,e day(s) e xtended release 24hr Vyvanse 451177 RxNorm 2018- oral 70 mg 1 completed 1 capsule 6- 08-09 capsule once a day once a for 30 day(s) day dextroamphetam 389556 RxNorm 2019- oral 30 mg completed for 30 ine-amphetamin 8- 09-27 capsule,e day(s) e xtended release 24hr Vyvanse 634299 RxNorm 2019- oral 70 mg completed for 30 3-25 06-06 capsule day(s) aripiprazole 401846 RxNorm 2017-05 2019- oral 10 mg active for 30 2-31 10-21 tablet day(s) dextroamphetam 825900 RxNorm 2019- oral 30 mg completed for 30 ine-amphetamin 4-29 05-29 capsule,e day(s) e xtended release 24hr lithium 847515 RxNorm 2019- oral 300 mg active for 30 carbonate 1-08 10-24 tablet day(s) extended release Vyvanse 181429 RxNorm 2019- oral 70 mg active for 30 9-23 10-23 capsule day(s) dextroamphetam 112962 RxNorm 2019- oral 30 mg completed for 30 ine-amphetamin 3-25 04-29 capsule,e day(s) e xtended release 24hr mirtazapine 731527 RxNorm 2019- oral 30 mg active for 30 2-26 12-26 tablet day(s) dextroamphetam 728063 RxNorm 2019- oral 30 mg completed for 30 ine-amphetamin 5-29 08-25 capsule,e day(s) e xtended release 24hr dextroamphetam 306911 RxNorm 2019- oral 30 mg active for 30 ine-amphetamin 9-27 10-27 capsule,e day(s) e xtended release 24hr Vyvanse 753137 RxNorm 2019- oral 70 mg completed for 30 7-10 09-20 capsule day(s) fluoxetine 600752 RxNorm 2019- oral 20 mg completed for 30 4-17 05-17 capsule day(s) fluoxetine 311565 RxNorm 2019- oral 20 mg completed for 30 4-17 07-23 capsule day(s) fluoxetine 057959 RxNorm 2019- oral 20 mg active for 30 7-23 10-21 capsule day(s) Problems Problem Name Code CodeSystem Alternate Alternate Start End Status Narrative Code CodeSystem Date Date 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 Nicotine 89213073 SNOMED-CT Active dependence, 4-02 unspecified, uncomplicated Relevant diagnostic tests/laboratory data Narrative No Information Procedures Procedure Code CodeSystem Target Date of Status Service Device Device Device Name Site Procedure Delivery Code Name UID Location Psychotherap [id number] SNOMED-CT () 2018-08-24 complete Mental y, 45 04 d Health- minutes with [place] patient [address], [id number] Psychotherap [id number] SNOMED-CT () 2018-09-07 complete Mental y, 45 04 d Health- minutes with [place] patient [address], [id number] Office [place] [id number] SNOMED-CT () 2018-09-07 complete Mental other 7 d Health- outpatient [place] visit for [address], [facility] [id number] patient, [id number] which requires at least 2 of these 3 umana components: An expanded problem focused history; An expanded problem focused examination; Medical decision making of low Psychotherap [id number] SNOMED-CT () 2018-09-22 complete Mental y, 45 04 d Health- minutes with [place] patient [address], [id number] [phone] Office or [id number] SNOMED-CT () 2018-11-01 complete Mental other 7 d Health- outpatient [place] visit for [address], [facility] [place] [id number] patient, [phone] which requires at least 2 of these 3 umana components: An expanded problem focused history; An expanded problem focused examination; Medical decision making of low Office or [id number] SNOMED-CT () 2018-12-13 complete Mental other 7 d Health- outpatient [place] visit for [address], [facility] [id number] patient, [id number] which requires at least 2 of these 3 umana components: An expanded problem focused history; An expanded problem focused examination; Medical decision making of low Psychotherap [id number] SNOMED-CT () 2018-12-13 complete Mental y, 30 87 d Health- minutes with [place] patient when [address] with an [facility], service [phone] (List [id number] separately in addition to the code for primary procedure) Office or [id number] SNOMED-CT () 2019-02-17 complete Mental other 7 d Health- outpatient [place] visit for [address], [facility] [place] [id number] patient, [phone] which requires at least 2 of these 3 umana components: An expanded problem focused history; An expanded problem focused examination; Medical decision making of low Office or [id number] SNOMED-CT () 2019-05-04 complete Mental other 7 d Health- outpatient [place] visit for [address], [facility] [id number] patient, [id number] which requires at least 2 of these 3 umana components: An expanded problem focused history; An expanded problem focused examination; Medical decision making of low Encounters/Encounter Diagnoses Encounter Encounter Diagnosis Diagnosis Diagnosis Date of Service Name Code Code Name CodeSystem Diagnosis Delivery Location Non-Billable 74823 SNOMED-CT 2019-05-09 [facility] , , , Vital Signs No Information Social History Element Description Description Start End Code CodeSystem AdditionalInfo Date Date SexAssignedAtBirth Female F AdministrativeGender 01-29 Hospital Discharge Instructions Reason For Referral Medical Equipment FDA Assessments
[2019-06-29 10:05] VITALS: BP 147/97
--- NOTE | 2019-06-29 10:54 | UC ---
Back Pain HPI - HPI Summary HPI Summary: CHIEF COMPLAINT: HPI: This is a 24-year-old female complaining of bilateral lower lumbar pain. Description of Pain: 10 with movement. Worse with twisting. Nonradiating. Sharp. Patient also requests a test. Patient says that approximately 10 days ago she fell. 3 days ago her lower back became "tight". Patient denies any problems with urination or bowel movements or any burning pain going down her legs or any lower extremity weakness. VITAL SIGNS REVIEWED. Within normal limits unless noted here. NURSES NOTE REVIEWED. back pain lower radiating to left leg not improving after rest also wants a preg test - History of Current Complaint Chief Complaint: UCBackPain Stated Complaint: BACK PAIN Time Seen by Provider: 06/29/19 10:43 Hx Last Menstrual Period: 05/23/19 Pain Intensity: 10 - Allergies/Home Medications Allergies/Adverse Reactions: Allergies Allergy/AdvReac Type Severity Reaction Status Date / Time metoclopramide [From Reglan] Allergy Itching Verified 06/29/19 10:05 PMH/Surg Hx/FS Hx/Imm Hx - Additional Past Medical History Additional PMH: PAST MEDICAL HISTORY- CHRONIC and RECURRENT HEALTH PROBLEM LIST REVIEWED. Extended PMH including psychiatric complaints. Information relevant to present complaint: non contributory. VISIT HISTORY REVIEWED. MEDICATIONS & ALLERGIES REVIEWED. HYPERTENSION STATUS: no anti-HTN medications. 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 - Family History Known Family History: Positive: Respiratory Disease - asthma in brother - Social History Alcohol Use: Rare Alcohol Amount: "a little bit" Substance Use Type: Marijuana Substance Use Comment - Amount & Last Used: HX MARIJUANA USE in past Smoking Status (MU): Light Every Day Tobacco Smoker Type: Cigarettes Amount Used/How Often: 1 pk/wk Have You Smoked in the Last Year: Yes When Did the Patient Quit Smoking/Using Tobacco: 05/30/2014 - Immunization History Most Recent Influenza Vaccination: Fall 2018 Most Recent Tetanus Shot: 11/06/14 Most Recent Pneumonia Vaccination: none Review of Systems All Other Systems Reviewed And Are Negative: Yes Constitutional: Positive: Negative Respiratory: Positive: Negative, Other - some wheezing Cardiovascular: Positive: Negative Gastrointestinal: Positive: Negative Musculoskeletal: Positive: Myalgia - lumbar Is Patient Immunocompromised?: No Physical Exam - Summary Physical Exam Summary: Appearance: The patient is well-appearing, is in no pain or distress, and is well-nourished. Eyes: Conjunctiva are clear. Pupils are equal and reactive to light and accommodation. Extra ocular muscle movement is intact. ENT: The hearing is grossly normal, the pharynx is normal, and the TMs are normal. There is no muffled or hoarse voice. No stridor. Neck: The neck is supple and there is no lymphadenopathy. Respiratory: The chest is non-tender to palpation and without crepitus. The lungs are clear, there are normal breath sounds, and there is no respiratory distress. No wheezes, rales or rhonchi. Cardiovascular: Heart sounds reveal a regular rate and rhythm. There are no clicks, rubs or murmurs. There are no carotid bruits or thrills. Circulation is grossly intact. Abdomen: The abdomen is soft and nontender. There is no organomegaly. Bowel sounds are present and within normal limits. No point tenderness at McBurneys point. No CVA tenderness. Musculoskeletal: Strength is intact. The patient moves all extremities. . Examination of the lower back shows no obvious trauma. The patient can't ambulate with full strength. There is no distal decrease in sensation or strength in the lower extremities. There is mild paraspinal discomfort in the lumbar area. Neurological: The patient is alert. Motor and sensory are examination grossly intact. Speech is normal. Psychological: The patient displays age appropriate behavior, and is conversant. GCS=15. Skin: Negative for rashes. Triage Information Reviewed: Yes Vital Signs: Initial Vital Signs Temp 98 F 06/29/19 10:01 Pulse 110 06/29/19 10:01 Resp 20 06/29/19 10:01 BP 147/97 06/29/19 10:01 Pulse Ox 100 06/29/19 10:01 Vital Signs Reviewed: Yes Back Pain Course/Dx - Course Course Of Treatment: This is a 24-year-old female complaining of bilateral lower lumbar pain. Description of Pain: 10 with movement. Worse with twisting. Nonradiating. Sharp. Patient also requests a test. It was negative. Patient says that approximately 10 days ago she fell. 3 days ago her lower back became "tight". Patient denies any problems with urination or bowel movements or any burning pain going down her legs or any lower extremity weakness. Physical examination is consistent with lumbar strain without neurologic involvement. Patient also has a history of asthma and has started smoking again. She does have some scattered wheezes. She has been counseled about this. Her blood pressure is 147/97 and she has been told to recheck this. I have given her Flexeril for low back pain. - Differential Dx/Diagnosis Differential Diagnosis/HQI/PQRI: Strain Provider Diagnosis: Lumbar strain Discharge ED - Sign-Out/Discharge Documenting (check all that apply): Patient Departure All imaging exams completed and their final reports reviewed: No Studies - Discharge Plan Condition: Stable Disposition: HOME Prescriptions: Cyclobenzaprine TAB* [Flexeril TAB*] 10 mg PO BID #10 tab MDD 2 Referrals: Markus Levine MD [Primary Care Provider] - Additional Instructions: WE DISCUSSED: PLEASE SEEK CARE AT THE EMERGENCY DEPARTMENT IF SYMPTOMS WORSEN OR IF NEW SYMPTOMS DEVELOP. FOLLOW UP WITH YOUR PRIMARY CARE PHYSICIAN IF CONDITION CONTINUES BEYOND 3 DAYS WITHOUT IMPROVEMENT. YOUR DIAGNOSIS IS: Strain of your lower back YOUR PRESCRIPTION RECOMMENDATION IS: Flexeril OTHER INSTRUCTIONS: Hypertension Discharge Instructions: Your blood pressure reading today was 147/97, indicating HYPERTENSION. Follow- up with your primary care provider within 4 weeks for blood pressure check and appropriate recommendations and treatment, as needed. FOR PAIN AND/OR SLEEP: For pain: Ibuprofen (Motrin and other brand names) 400-600mg PLUS acetaminophen (Tylenol and other brand names) 500mg - 1000mg every 8 hours. Warm moist fluids or shower in the morning; ice to the area of discomfort for any sharp or new pain. Make sure to lift with your legs and not with your lower back. Try not to smoke to reduce any symptoms of asthma. - Billing Disposition and Condition Condition: STABLE Disposition: Home
== END 2019-06-29 12:00 | disposition home or self-care (01) ==
LOC: UCEAST 09:56
DX: S39.012A Strain of muscle, fascia and tendon of lower back, initial encounter (principal); F17.210 Nicotine dependence, cigarettes, uncomplicated; Z91.81 History of falling; Z88.8 Allergy status to other drugs, medicaments and biological substances; X50.0XXA Overexertion from strenuous movement or load, initial encounter; Y92.9 Unspecified place or not applicable
CPT/HCPCS: 81003; 84702; 87086; 99212; G0463

== ENCOUNTER 2019-07-01 21:20 | Emergency (ER) | payer SELFPAY ==
[2019-07-01] MEDS ORDERED: Fluorescein Sodium TOPICAL* 1 MG TEST STRIP OPHTHALMIC ONE (21:40)
[2019-07-01] MEDS ORDERED: BSS OPTH.SOL* BTL OPHTHALMIC ONE (21:40)
--- NOTE | 2019-07-01 21:40 | UC ---
Eye Complaint HPI - HPI Summary HPI Summary: both eyes are swollen red itchy with light yellow mdrainage - History of Current Complaint Chief Complaint: UCEye Stated Complaint: EYE COMPLAINTS Time Seen by Provider: 07/01/19 21:29 Hx Obtained From: Patient Hx Last Menstrual Period: 05/23/19 ?: No Onset/Duration: Sudden Onset, Lasting Days - 1 Timing: Constant Severity Initially: Mild Severity Currently: Moderate Location of Injury: Conjunctiva, Eye Lid (lower), Eye Lid (upper) Aggravating Factor(s): Nothing Alleviating Factor(s): Nothing Associated Signs And Symptoms: Positive: Drainage (Purulent), Swelling - Allergies/Home Medications Allergies/Adverse Reactions: Allergies Allergy/AdvReac Type Severity Reaction Status Date / Time metoclopramide [From Reglan] Allergy Itching Verified 07/03/19 18:53 PMH/Surg Hx/FS Hx/Imm Hx Previously Healthy: No GI/ History: Gastroesophageal Reflux Psychological History: Bipolar Disorder Other History Of: Negative For: Anticoagulant Therapy - Surgical History Surgical History: Yes Surgery Procedure, Year, and Place: Right arm reset as a child under anesthesia. - Family History Known Family History: Positive: Respiratory Disease - asthma in brother - Social History Occupation: Employed Full-time Lives: With Family Alcohol Use: Rare Alcohol Amount: "a little bit" Substance Use Type: Marijuana Substance Use Comment - Amount & Last Used: HX MARIJUANA USE in past Smoking Status (MU): Light Every Day Tobacco Smoker Type: Cigarettes Amount Used/How Often: 1 pk/wk Have You Smoked in the Last Year: Yes When Did the Patient Quit Smoking/Using Tobacco: 05/30/2014 - Immunization History Most Recent Influenza Vaccination: Fall 2018 Most Recent Tetanus Shot: 11/06/14 Most Recent Pneumonia Vaccination: none Review of Systems All Other Systems Reviewed And Are Negative: Yes Constitutional: Positive: Negative Skin: Positive: Negative Eyes: Positive: Drainage - b/l, Eye Redness - b/l ENT: Positive: Negative Respiratory: Positive: Negative Cardiovascular: Positive: Negative Gastrointestinal: Positive: Negative Genitourinary: Positive: Negative Motor: Positive: Negative Neurovascular: Positive: Negative Musculoskeletal: Positive: Negative Neurological/Mental Status: Positive: Negative Psychological: Positive: Negative Is Patient Immunocompromised?: No Physical Exam Triage Information Reviewed: Yes Appearance: Well-Appearing, No Pain Distress, Obese Vital Signs Reviewed: Yes Eye Exam: Normal Eyes: Positive: Conjunctiva Inflamed, Discharge, Other: - perrla, erythema and swelling with itching around both eyes ENT Exam: Normal ENT: Positive: Normal ENT inspection, Hearing grossly normal, Pharynx normal, TMs normal. Negative: Nasal congestion, Trismus, Muffled voice, Hoarse voice Dental Exam: Normal Neck exam: Normal Neck: Positive: Supple, Nontender, No Lymphadenopathy Respiratory Exam: Normal Respiratory: Positive: Chest non-tender, Lungs clear, Normal breath sounds, No respiratory distress, No accessory muscle use Cardiovascular Exam: Normal Cardiovascular: Positive: RRR, Pulses Normal, Brisk Capillary Refill Musculoskeletal Exam: Normal Musculoskeletal: Positive: Strength Intact, ROM Intact, No Edema Neurological Exam: Normal Neurological: Positive: Alert, Muscle Tone Normal Psychological Exam: Normal Skin Exam: Normal Eye Complaint Course/Dx - Course Course Of Treatment: cool compress, Benadryl, treat from bacterial conjunctivitis as well with polytrim--- - Differential Dx/Diagnosis Provider Diagnosis: Allergic conjunctivitis Discharge ED - Sign-Out/Discharge Documenting (check all that apply): Patient Departure All imaging exams completed and their final reports reviewed: No Studies - Discharge Plan Condition: Stable Disposition: HOME Patient Education Materials: Diphenhydramine (By mouth), How to Use Eye Drops ( ED), Conjunctivitis (ED) Forms: *Work Release Referrals: Matheus Cronin MD [Medical Doctor] - If Needed - Billing Disposition and Condition Condition: STABLE Disposition: Home
[2019-07-01 21:45] VITALS: BP 131/72
[2019-07-01] MEDS ORDERED: Ciprofloxacin 0.3% OPTH.SOL* BTL BOTH EYES ONE (21:52)
[2019-07-01] MEDS ORDERED: diPHENhydraMINE PO* 50 MG PO ONE (21:53)
== END 2019-07-01 22:17 | disposition home or self-care (01) ==
LOC: UCEAST 21:20
DX: H10.13 Acute atopic conjunctivitis, bilateral (principal); Z88.8 Allergy status to other drugs, medicaments and biological substances; Z87.891 Personal history of nicotine dependence
CPT/HCPCS: 99213; A9270-GY; G0463

== ENCOUNTER 2019-09-10 16:47 | Emergency (ER) | payer MEDICAID ==
--- NOTE | 2019-09-10 17:36 | ED ---
Psychiatric Complaint - HPI Summary HPI Summary: 24 y/o female presented to [facility] for suicidal thoughts present for months. Pt reports being depressed for months with suicidal thoughts and manic episodes. She reports staying up for days at a time. The most recent episode lasted 3 days until she slept last night. Pt reports specific thoughts of taking her car and driving off of a road. She reports use of crack cocaine over the past 2 months, mostly through smoking. She has tried to hurt herself before through cutting; her last episode of cutting was one year ago. She has also tried to overdose on drugs before. At 1725 pt was cleared by Dr. Barker for MHE. Patient denies any fever, chills, erythema of eyes, sore throat, chest pain, shortness of breath, cough, abdominal pain, nausea/vomiting, dysuria, hematuria, myalgia, edema, rash, or dizziness. - History Of Current Complaint Chief Complaint: EDSuicidal Time Seen by Provider: 09/10/19 16:56 Hx Obtained From: Patient Hx Last Menstrual Period: now Onset/Duration: Lasting Weeks, Still Present Timing: Weeks Character: Manic, Depressed Aggravating Factor(s): Drug Use - crack cocaine, mostly smoking Has Suicidal: Reports: Thoughts, With A Plan - driving car off road - Allergies/Home Medications Allergies/Adverse Reactions: Allergies Allergy/AdvReac Type Severity Reaction Status Date / Time metoclopramide [From Reglan] Allergy Itching Verified 07/03/19 18:53 Home Medications: Home Medications Fexofenadine (NF) [Tina 180 (NF)] 180 mg PO DAILY 03/24/18 [History Confirmed 07/01/19] Lisdexamfetamine (NF) [Vyvanse (NF)] 70 mg PO DAILY 03/24/18 [History Confirmed 07/03/19] Montelukast Sodium TAB* [Singulair 10 MG TAB*] 10 mg PO DAILY 12/21/18 [History Confirmed 07/03/19] Fluticasone-Salmeterol 500-50* [Advair Diskus 500-50*] 1 puff INH BID #1 diskus 02/16/19 [Rx Confirmed 07/03/19] Albuterol HFA INHALER* [Ventolin HFA Inhaler*] 2 puff INH Q4H PRN 04/26/19 [ History Confirmed 07/03/19] ARIPiprazole TAB* [Abilify 15 MG TAB*] 15 mg PO BEDTIME #30 tab 05/02/19 [Rx Confirmed 07/03/19] Gabapentin CAP(*) [Neurontin 400 mg CAP(*)] 400 mg PO TID #90 cap 05/02/19 [Rx Confirmed 07/03/19] [place] Carbonate ER (NF) 1,200 mg PO BEDTIME #120 tab.er 05/02/19 [Rx Confirmed 07/03/19] Pantoprazole TAB * [Protonix TAB*] 40 mg PO QAM tab 05/02/19 [Rx Confirmed 03/12] Tiotropium [place] [Spiriva Respimat] 1.25 mcg IN DAILY 05/02/19 [Rx Confirmed 07/03/19] hydrOXYzine pamoate [Vistaril] 25 mg PO Q4H PRN #120 cap 05/02/19 [Rx Confirmed 07/03/19] Cyclobenzaprine TAB* [Flexeril TAB*] 10 mg PO BID #10 tab MDD 2 06/29/19 [Rx Confirmed 07/03/19] Amoxicillin/Clavulanate TAB* [Augmentin TAB 875*] 875 mg PO BID #13 tab [Rx] Ciprofloxacin 0.3% OPTH.[place]* [Cipro 0.3% Opth*] 1 drop BOTH EYES 07/03/19 [ History] Erythromycin OPHTH.OINT* [Ilotycin OPHTH.OINT*] 1 applic BOTH EYES BEDTIME 7 Days #1 ophth.oint 07/03/19 [Rx] Sulfamethox/Trimethoprim DS* [Bactrim DS 800/160 TAB*] 1 tab PO BID #13 tab 03/12 [Rx] PMH/Surg Hx/FS Hx/Imm Hx Endocrine/Hematology History: Denies: Hx Anticoagulant Therapy, Hx Diabetes, Hx Thyroid Disease Cardiovascular History: Denies: Hx Hypertension, Hx Pacemaker/ICD Respiratory History: Reports: Hx Asthma, Hx Pneumonia, Hx Seasonal Allergies Denies: Hx Chronic Obstructive Pulmonary Disease (COPD) GI History: Denies: Hx Ulcer History: Reports: Hx Kidney Stones Denies: Hx Renal Disease Sensory History: Reports: Hx Contacts or Glasses Denies: Hx Hearing Aid Opthamlomology History: Reports: Hx Contacts or Glasses Neurological History: Reports: Hx Migraine, Other Neuro Impairments/Disorders - Vertigo Denies: Hx Dementia, Hx Seizures Psychiatric History: Reports: Hx Anxiety - on prozac, Hx Attention Deficit Hyperactivity Disorder, Hx Eating Disorder - used to purge, Hx Depression - on prozac, Hx Panic Disorder, Hx Post Traumatic Stress Disorder, Hx Inpatient Treatment, Hx Community Mental Health Tx, Hx Bipolar Disorder, Hx Suicide Attempt, Hx of Violent Episodes Against Others, Other Psychiatric Issues/ Disorders Denies: Hx Schizophrenia, Hx Substance Abuse - Surgical History Surgery Procedure, Year, and Place: Right arm reset as a child under anesthesia , kidney stone removal 2019 - Immunization History Date of Tetanus Vaccine: up to date per pt Infectious Disease History: No Infectious Disease History: Denies: Hx Clostridium Difficile, Hx Hepatitis, Hx Human Immunodeficiency Virus (HIV), Hx of Known/Suspected MRSA, Hx Shingles, Hx Tuberculosis, Hx Known/ Suspected VRE, Hx Known/Suspected VRSA, History Other Infectious Disease, Traveled Outside the [place] in Last 30 Days - Family History Known Family History: Positive: Respiratory Disease - asthma in brother - Social History Alcohol Use: Rare Alcohol Amount: "a little bit" Hx Substance Use: Yes Substance Use Type: Reports: Marijuana Substance Use Comment - Amount & Last Used: occasional Hx Tobacco Use: Yes - quit 2 weeks ago Smoking Status (MU): Current Every Day Smoker Type: Cigarettes Amount Used/How Often: 1/2 ppd Have You Smoked in the Last Year: Yes Review of Systems Negative: Fever, Chills Negative: Erythema Negative: Sore Throat Negative: Chest Pain Negative: Shortness Of Breath, Cough Negative: Abdominal Pain, Vomiting, Nausea Negative: dysuria, hematuria Negative: Myalgia, Edema Negative: Rash Neurological/Mental Status: Other - negative - dizziness Positive: Depressed All Other Systems Reviewed And Are Negative: Yes Physical Exam - Summary Physical Exam Summary: General: Well appearing, no distress Cardiovascular: Skin is well perfused Pulmonary: No respiratory distress, no tachypnea Abdomen: Non-distended Skin: Warm, pink, dry Psych: Normal affect Neuro: A&Ox3 Triage Information Reviewed: Yes Vital Signs On Initial Exam: Initial Vitals Temp Pulse Resp BP Pulse Ox 96.0 F 104 18 138/90 95 09/10/19 16:47 09/10/19 16:47 09/10/19 16:47 09/10/19 16:47 09/10/19 16:47 Vital Signs Reviewed: Yes Procedures - Sedation Patient Received Moderate/Deep Sedation with Procedure: No Diagnostics - Vital Signs Vital Signs Temp Pulse Resp BP Pulse Ox 09/10/19 16:47 96.0 F 104 18 138/90 95 - Laboratory Lab Statement: Any lab studies that have been ordered have been reviewed, and results considered in the medical decision making process. Course/Dx - Course Course Of Treatment: 24 y/o female presented to [facility] for suicidal thoughts present for months. Pt reports being depressed for months with suicidal thoughts and manic episodes. She reports staying up for days at a time. The most recent episode lasted 3 days until she slept last night. Pt reports specific thoughts of taking her car and driving off of a road. She reports use of crack cocaine over the past 2 months, mostly through smoking. She has tried to hurt herself before through cutting; her last episode of cutting was one year ago. She has also tried to overdose on drugs before. At 1725 pt was cleared by Dr[address] Barker for MHE. Patient denies any fever, chills, erythema of eyes, sore throat, chest pain, shortness of breath, cough, abdominal pain, nausea/vomiting, dysuria, hematuria, myalgia, edema, rash, or dizziness. Exam was normal. Pt signed out to Dr. Barnard at 09/10/19 termination of midday shift pending MHE and dispo. - Differential Dx/Clinical Impression Provider Diagnosis: Suicidal ideation - Critical Care Time Critical Care Statement: Critical care time is provided exclusive of any time spent performing procedures. Discharge ED - Sign-Out/Discharge Documenting (check all that apply): Sign-Out Patient Signing out patient TO: Hugh Barnard - Pt signed out to Dr. Barnard at 09/10/19 termination of midday shift pending MHE and dispo. Receiving patient FROM: Magdaleno Barker - Discharge Plan Referrals: Markus Levine MD [Primary Care Provider] - - Attestation Statements Document Initiated by Scribe: Yes Documenting Scribe: Donny Davis Provider For Whom Scribe is Documenting (Include Credential): Magdaleno Barker MD Scribe Attestation: Donny Jung, scribed for Magdaleno Barker MD on 09/10/19 at 1820. Status of Scribe Document: Ready
--- OUTSIDE RECORDS SUMMARY | 2019-09-10 18:00 | XMS REPORT ---
:1995 Author Organization [facility] Care Team Providers Name Role Phone YOLANDA RIBERA Primary Care Physician Unavailable Allergies, Adverse Reactions, Alerts Allergy Code CodeSystem Reaction Severity Criticality Status Start Substance Date Moderate Medications Medication Medication Medication Start Stop Route Dose Status Fill Code CodeSystem Date Date Instructions dextroamphetam 139766 RxNorm 2019- oral 30 mg completed for 30 ine-amphetamin 8- 09-27 capsule,e day(s) e xtended release 24hr aripiprazole 926412 RxNorm 2017-05- oral 10 mg active for 30 2-31 10-21 tablet day(s) fluoxetine 562302 RxNorm 2019- oral 20 mg completed for 30 4-17 05-17 capsule day(s) dextroamphetam 613391 RxNorm 2019- oral 30 mg completed for 30 ine-amphetamin 3-25 04-29 capsule,e day(s) e xtended release 24hr dextroamphetam 811560 RxNorm 2018- oral 30 mg completed for 30 ine-amphetamin 4-29 05-29 capsule,e day(s) e xtended release 24hr lithium 544788 RxNorm 2019- oral 300 mg active for 30 carbonate 1- 10-24 tablet day(s) extended release Vyvanse 384621 RxNorm 2019- oral 70 mg 1 completed 1 capsule 11-01 08-09 capsule once a day once a for 30 day(s) day dextroamphetam 515498 RxNorm 2019- oral 30 mg completed for 30 ine-amphetamin 4-29 05-29 capsule,e day(s) e xtended release 24hr fluoxetine 738666 RxNorm 2019- oral 20 mg completed for 30 4-17 07-23 capsule day(s) Vyvanse 462344 RxNorm 2019-0 2019- oral 70 mg active for 30 9-23 10-23 capsule day(s) Vyvanse 404163 RxNorm 2019- oral 70 mg completed for 30 7-10 09-20 capsule day(s) dextroamphetam 780186 RxNorm 2018- oral 30 mg completed for 30 ine-amphetamin 7-26 08-28 capsule,e day(s) e xtended release 24hr fluoxetine 616828 RxNorm 2019- oral 20 mg active for 30 7-23 10-21 capsule day(s) Vyvanse 817282 RxNorm 2019- oral 70 mg completed for 30 3-25 06-06 capsule day(s) dextroamphetam 173115 RxNorm 2018- oral 30 mg completed for 30 ine-amphetamin 5-29 08-25 capsule,e day(s) e xtended release 24hr mirtazapine 493070 RxNorm 2018- oral 30 mg active for 30 2-26 12-26 tablet day(s) dextroamphetam 644246 RxNorm 2018- oral 30 mg active for 30 ine-amphetamin 9-27 10-27 capsule,e day(s) e xtended release 24hr Problems Problem Name Code CodeSystem Alternate Alternate Start End Status Narrative Code CodeSystem Date Date 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 Nicotine 24061508 SNOMED-CT Active dependence, 4-02 unspecified, uncomplicated Relevant diagnostic tests/laboratory data Narrative No Information Procedures Procedure Code CodeSystem Target Date of Status Service Device Device Device Name Site Procedure Delivery Code Name UID Location Psychotherap [id number] SNOMED-CT () 2018-08-24 complete Mental y, 44 04 d Health- minutes with [facility] patient [address], [id number] [id number] Psychotherap [id number] SNOMED-CT () 2018-09-07 complete Mental y, 45 04 d Health- minutes with [facility] patient [address], [id number] [phone] Office [place] [id number] SNOMED-CT () 2018-09-07 complete Mental other 7 d Health- outpatient [facility] visit for [address], [facility] [id number] patient, [phone] which requires at least 2 of these 3 umana components: An expanded problem focused history; An expanded problem focused examination; Medical decision making of low Psychotherap 592373 SNOMED-CT () 2018-09-22 complete Mental y, 45 04 d Health- minutes with [facility] patient [address], [id number] [phone] Office or [id number] SNOMED-CT () 2018-11-01 complete Mental other 7 d Health- outpatient [facility] visit for [address], [facility] [id number] patient, [phone] which requires at least 2 of these 3 umana components: An expanded problem focused history; An expanded problem focused examination; Medical decision making of low Office or [id number] SNOMED-CT () 2018-12-13 complete Mental other 7 d Health- outpatient [facility] visit for [address], [facility] [id number] patient, [phone] which requires at least 2 of these 3 umana components: An expanded problem focused history; An expanded problem focused examination; Medical decision making of low Psychotherap 888738 SNOMED-CT () 2018-12-13 complete Mental y, 30 87 d Health- minutes with [facility] patient when [address] with an [facility], service [phone] (List [id number] separately in addition to the code for primary procedure) Office or [id number] SNOMED-CT () 2019-02-17 complete Mental other 7 d Health- outpatient [facility] visit for [address], [facility] [id number] patient, [phone] which requires at least 2 of these 3 umana components: An expanded problem focused history; An expanded problem focused examination; Medical decision making of low Office or [id number] SNOMED-CT () 2019-05-04 complete Mental other 7 d Health- outpatient [facility] visit for [address], [facility] [id number] patient, [phone] which requires at least 2 of these 3 umana components: An expanded problem focused history; An expanded problem focused examination; Medical decision making of low Psychotherap 607351 SNOMED-CT () 2019-07-19 complete Mental y, 45 04 d Health- minutes with [facility] patient [address], [id number] [id number] Office or [id number] SNOMED-CT () 2019-07-19 complete Mental other 7 d Health- outpatient [facility] visit for [address], management [place], of an [place], established [id number] patient, [phone] which requires at least 2 of these 3 umana components: An expanded problem focused history; An expanded problem focused examination; Medical decision making of low Encounters/Encounter Diagnoses Encounter Name Encounter Diagnosis Diagnosis Diagnosis Date of Service Code Code Name CodeSystem Diagnosis Delivery Location Psychotherapy - 25802 SNOMED-CT 2019-07-26 Behavioral [facility] , , , Vital Signs No Information Social History Element Description Description Start End Code CodeSystem AdditionalInfo Date Date SexAssignedAtBirth Female F AdministrativeGender 01-29 Hospital Discharge Instructions Reason For Referral Medical Equipment FDA Assessments
--- OUTSIDE RECORDS SUMMARY | 2019-09-10 18:00 | XMS REPORT ---
:1995 Author Organization [facility] Care Team Providers Name Role Phone YOLANDA RIBERA Primary Care Physician Unavailable Allergies, Adverse Reactions, Alerts Allergy Code CodeSystem Reaction Severity Criticality Status Start Substance Date Moderate Medications Medication Medication Medication Start Stop Route Dose Status Fill Code CodeSystem Date Date Instructions fluoxetine 420067 RxNorm 2019- oral 20 mg active for 30 7-23 10-21 capsule day(s) dextroamphetam 946841 RxNorm 2018- oral 30 mg completed for 30 ine-amphetamin 3-25 04-29 capsule,e day(s) e xtended release 24hr Vyvanse 284140 RxNorm 2018- oral 70 mg completed for 30 7-10 09-20 capsule day(s) dextroamphetam 964610 RxNorm 2019- oral 30 mg completed for 30 ine-amphetamin 7- 08-28 capsule,e day(s) e xtended release 24hr Vyvanse 432510 RxNorm 2019- oral 70 mg 1 completed 1 capsule 6- 08-09 capsule once a day once a for 30 day(s) day dextroamphetam 853405 RxNorm 2019- oral 30 mg active for 30 ine-amphetamin 9-27 10-27 capsule,e day(s) e xtended release 24hr Vyvanse 438190 RxNorm 2019- oral 70 mg completed for 30 3-25 06-06 capsule day(s) dextroamphetam 531421 RxNorm 2019- oral 30 mg completed for 30 ine-amphetamin 8-28 09-27 capsule,e day(s) e xtended release 24hr mirtazapine 931636 RxNorm 2019- oral 30 mg active for 30 2-26 12-26 tablet day(s) dextroamphetam 874547 RxNorm 2019- oral 30 mg completed for 30 ine-amphetamin 5-29 08-25 capsule,e day(s) e xtended release 24hr aripiprazole 573748 RxNorm 2017-05 2019- oral 10 mg active for 30 2-31 10-21 tablet day(s) Vyvanse 335860 RxNorm 2018- oral 70 mg active for 30 9-23 10-23 capsule day(s) fluoxetine 066543 RxNorm 2019- oral 20 mg completed for 30 4-17 05-17 capsule day(s) fluoxetine 599675 RxNorm 2019- oral 20 mg completed for 30 4-17 07-23 capsule day(s) dextroamphetam 054936 RxNorm 2018- oral 30 mg completed for 30 ine-amphetamin 4-29 05-29 capsule,e day(s) e xtended release 24hr dextroamphetam 951492 RxNorm 2018- oral 30 mg completed for 30 ine-amphetamin 4- 05-29 capsule,e day(s) e xtended release 24hr lithium 545796 RxNorm 2019- oral 300 mg active for 30 carbonate 1-08 10-24 tablet day(s) extended release Problems Problem Name Code CodeSystem Alternate Alternate Start End Status Narrative Code CodeSystem Date Date Hyperkinetic 68100714 SNOMED-CT 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 disorder Nicotine 56072520 SNOMED-CT Active dependence, 4-02 unspecified, uncomplicated Relevant diagnostic tests/laboratory data Narrative No Information Procedures Procedure Code CodeSystem Target Date of Status Service Device Device Device Name Site Procedure Delivery Code Name UID Location Psychotherap [id number] SNOMED-CT () 2018-08-24 complete Mental y, 45 04 d Health- minutes with [facility] patient [address], [id number] [phone] Psychotherap [id number] SNOMED-CT () 2018-09-07 complete Mental y, 45 04 d Health- minutes with [facility] patient [address], [id number] [phone] Office or [id number] SNOMED-CT () 2018-09-07 complete Mental other 7 d Health- outpatient [facility] visit for [address], [facility] [id number] patient, [phone] which requires at least 2 of these 3 umana components: An expanded problem focused history; An expanded problem focused examination; Medical decision making of low Psychotherap 434160 SNOMED-CT () 2018-09-22 complete Mental y, 45 04 d Health- minutes with [facility] patient [address], [id number] [phone] Office or [id number] SNOMED-CT () 2018-11-01 complete Mental other 7 d Health- outpatient [facility] visit for [address], [facility] [id number] patient, [phone] which requires at least 2 of these 3 umana components: An expanded problem focused history; An expanded problem focused examination; Medical decision making of low Office or [id number] SNOMED-CT () 2018-12-13 complete Mental other 7 d Health- outpatient [facility] visit for [address], [facility] [id number] patient, [phone] which requires at least 2 of these 3 umana components: An expanded problem focused history; An expanded problem focused examination; Medical decision making of low Psychotherap 829332 SNOMED-CT () 2018-12-13 complete Mental y, 29 87 d Health- minutes with [facility] patient when [address] with an [facility], service [phone] (List [id number] separately in addition to the code for primary procedure) Office or [id number] SNOMED-CT () 2019-02-17 complete Mental other 7 d Health- outpatient [facility] visit for [address], [facility] [id number] patient, [phone] which requires at least 2 of these 3 umana components: An expanded problem focused history; An expanded problem focused examination; Medical decision making of low Office or [id number] SNOMED-CT () 2019-05-04 complete Mental other 7 d Health- outpatient [facility] visit for [address], [facility] [id number] patient, [phone] which requires at least 2 of these 3 umana components: An expanded problem focused history; An expanded problem focused examination; Medical decision making of low Psychotherap 851529 SNOMED-CT () 2019-07-19 complete Mental y, 45 04 d Health- minutes with [facility] patient [address], [id number] [id number] Office or [id number] SNOMED-CT () 2019-07-19 complete Mental other 7 d Health- outpatient [facility] visit for [address], [facility], of an [place], established [id number] patient, [phone] which requires at least 2 of these 3 umana components: An expanded problem focused history; An expanded problem focused examination; Medical decision making of low SNOMED-CT () 2019-07-26 complete Mental d Health- [address], [id number] [phone] Encounters/Encounter Diagnoses Encounter Name Encounter Diagnosis Diagnosis Diagnosis Date of Service Code Code Name CodeSystem Diagnosis Delivery Location Injectable H2010 SNOMED-CT 2019-08-02 Behavioral Medication [facility] , , with Monitoring & , Education Vital Signs No Information Social History Element Description Description Start End Code CodeSystem AdditionalInfo Date Date SexAssignedAtBirth Female F AdministrativeGender 01-29 Hospital Discharge Instructions Reason For Referral Medical Equipment FDA Assessments
--- OUTSIDE RECORDS SUMMARY | 2019-09-10 18:00 | XMS REPORT | Summary of Care ---
:1995 Author Organization [facility] Address [address] [address] Care Team Providers Name Role Phone None, [place] Primary Care Provider Unavailable Reason for Visit Reason Comments Cough Encounter Details Date Type Department Care Team Description 08/08/2019 Office Visit [facility] Bettie Calderon, Encounter for female control (Primary Dx); Practice [facility] INSPECTOR-C Mild persistent asthma without complication; [address] [facility] Seasonal allergies; [place], [place] [id number] [place] [address] Gastroesophageal reflux disease without esophagitis; [phone] Genital herpes simplex, unspecified site Allergies Active Allergy Reactions Severity Noted Date Comments Reglan MOLD MOVER Reaction Medium 08/31/2018 documented as of this encounter (statuses as of 08/08/2019) Medications Medication Sig Dispensed Refills Start End Date Status Date lithium 300 MG Oral Take 300 mg by 0 Active Cap mouth TWICE DAILY. aripiprazole Take 10 mg by 0 Active (ABILIFY) 10 MG Oral mouth EVERY Tab BEDTIME. fexofenadine Take 1 Tab by 30 Tab 5 Active (MADELINE) 180 MG mouth DAILY. 0 Oral TabIndications: Seasonal allergies albuterol HFA Take 2 Puffs 1 Inhaler 5 Active (VENTOLIN HFA) 108 by inhalation 0 (90 Base) MCG/ACT EVERY FOUR Inhalation Aero HOURS SolnIndications: NEEDED (SOB). Mild persistent asthma without complication fluticasone Huxford 2 Sprays 1 Bottle 5 Active (FLONASE) 50 MCG/ACT in nose DAILY. 0 Nasal SuspensionIndication s: Seasonal allergies fluticasone-salmeter Take 1 INHL by 60 Each 5 Active ol diskus (ADVAIR inhalation 0 DISKUS) 250-50 TWICE DAILY. MCG/DOSE Inhalation AEROSOL POWDER, BREATH ACTIVATEDIndications : Mild persistent asthma without complication montelukast Take 1 Tab by 30 Tab 5 Active (SINGULAIR) 10 MG mouth DAILY. 0 Oral TabIndications: Mild persistent asthma without complication, Seasonal allergies pantoprazole Take 1 Tab by 30 Tab 5 Active (PROTONIX) 20 MG mouth DAILY. 0 Oral Tab ECIndications: Gastroesophageal reflux disease without esophagitis valacyclovir Take 1 Tab by 30 Tab 5 Active (VALTREX) 500 MG mouth DAILY. 0 Oral TabIndications: Genital herpes simplex, unspecified site Levonorgest-Eth Take 1 Day by 91 Tab 0 Active Estrad 91-Day mouth DAILY. 0 0.15-0.03 MG Oral Tab mirtazapine Take 30 mg by 0 08/08/19 Discontinued (REMERON) 30 MG Oral mouth. 20 (Alternative Tab Therapy) Lisdexamfetamine Take 70 mg by 0 08/08/19 Discontinued Dimesylate (VYVANSE) mouth DAILY. 20 (Alternative 70 MG Oral Cap Therapy) amphetamine-dextroam Take 30 mg by 0 08/08/19 Discontinued phetamine (ADDERALL mouth EVERY 20 (Alternative XR) 30 MG Oral MORNING. Therapy) CAPSULE SR 24 HR albuterol HFA Take 2 Puffs 1 Inhaler 5 08/08/19 Discontinued (VENTOLIN HFA) 108 by inhalation 9 20 (Reorder) (90 Base) MCG/ACT EVERY FOUR Inhalation Aero HOURS SolnIndications: NEEDED (SOB). Mild persistent asthma without complication fluticasone-salmeter Take 1 INHL by 60 Each 5 08/08/19 Discontinued ol diskus (ADVAIR inhalation 9 20 (Reorder) DISKUS) 250-50 TWICE DAILY. MCG/DOSE Inhalation AEROSOL POWDER, BREATH ACTIVATEDIndications : Mild persistent asthma without complication fexofenadine Take 1 Tab by 30 Tab 5 08/08/19 Discontinued (MADELINE) 180 MG mouth DAILY. 9 20 (Reorder) Oral TabIndications: Seasonal allergies Etonogestrel-Ethinyl Place 1 Device 1 Each 5 08/08/19 Discontinued Estradiol 0.12-0.015 into the 9 20 (Alternative MG/24HR Vaginal vagina EVERY Therapy) RINGIndications: 28 DAYS. Family planning montelukast Take 1 Tab by 30 Tab 5 08/08/19 Discontinued (SINGULAIR) 10 MG mouth DAILY. 9 20 (Reorder) Oral TabIndications: Mild persistent asthma without complication, Seasonal allergies valacyclovir Take 1 Tab by 30 Tab 5 08/08/19 Discontinued (VALTREX) 500 MG mouth DAILY. 9 20 (Reorder) Oral TabIndications: Genital herpes simplex, unspecified site fluticasone Huxford 2 Sprays 1 Bottle 5 08/08/19 Discontinued (FLONASE) 50 MCG/ACT in nose DAILY. 9 20 (Reorder) Nasal SuspensionIndication s: Seasonal allergies pantoprazole Take 1 Tab by 30 Tab 5 08/08/19 Discontinued (PROTONIX) 20 MG mouth DAILY. 9 20 (Reorder) Oral Tab ECIndications: Gastroesophageal reflux disease without esophagitis Varenicline Tartrate Take 1 Tab by 60 Tab 5 08/08/19 Discontinued 1 MG Oral Tab mouth TWICE 9 20 (Alternative DAILY. Therapy) documented as of this encounter (statuses as of 08/08/2019) Active Problems Problem Noted Date Bipolar 1 disorder 08/31/2018 Herpes simplex infection of genitourinary system 08/31/2018 Mild persistent asthma without complication 08/31/2018 Gastroesophageal reflux disease without esophagitis 08/31/2018 Asthma Depression Overview: past suicide attempts, sees Dr Michaels GERD (gastroesophageal reflux disease) ADHD Bipolar 1 disorder, mixed, mild Nicotine dependence Anxiety Chronic pain syndrome documented as of this encounter (statuses as of 08/08/2019) Immunizations Name Administration Dates Next Due DTAP [...] Assigned at Date Recorded Not on file documented as of this encounter Last Filed Vital Signs Vital Sign Reading Time Taken Comments Blood Pressure 124/88 08/08/2019 11:19 AM EDT Pulse 94 08/08/2019 11:19 AM EDT Temperature 36.8 08/08/2019 11:19 AM EDT C (98.2 F) Respiratory Rate - - Oxygen Saturation 98% 08/08/2019 11:19 AM EDT Inhaled Oxygen Concentration - - Weight 107 kg (236 lb) 08/08/2019 11:19 AM EDT Height - - Body Mass Index 41.81 01/18/2019 11:08 AM EDT documented in this encounter Progress Notes Bettie Taylor FNP-C - 08/08/2019 11:00 AM EDT PATIENT: Ashanti Herr : 1995 DATE OF SERVICE: 08/08/2019 CHIEF COMPLAINT: No chief complaint on file. Subjective HISTORY OF PRESENT ILLNESS: Ahsanti Herr is a 24-y.o. female. New patient establishing care. Prior PCP:THIEN Current Concerns: Out of all her regular medications for months for the last 1.5 weeks she is coughing more sputum production Wheezing and coughing especially at night No fever Would like to get on control currently just using condoms 50-75% of the time Not currently sexually active has irregular menses- usually has bad cramping LMP 07/23/19 Has used mirena and depo which she didn't like Chronic Conditions: Asthma Bipolar disorder smoker obesity Specialists: [facility]- PNP Myra Perez Health Maintenance: Pap (21-65): 2018- [employer] Past Medical History: Diagnosis Date ? ADHD ? Anxiety ? Asthma ? Bipolar 1 disorder, mixed, mild (HCC) ? Chronic pain syndrome ? Depression past suicide attempts, sees Dr Michaels ? GERD (gastroesophageal reflux disease) ? Nicotine dependence Family History Problem Relation Age of Onset ? Depression/Depressed Mother ? Hypertension Mother ? Thyroid Disease Father ? Asthma Brother ? Heart Disease Paternal Grandfather Current Outpatient Medications Medication Sig ? albuterol HFA (VENTOLIN HFA) 108 (90 Base) MCG/ACT Inhalation Aero Soln Take 2 Puffs by inhalation EVERY FOUR HOURS NEEDED (SOB). ? aripiprazole (ABILIFY) 10 MG Oral Tab Take 10 mg by mouth EVERY BEDTIME. ? fexofenadine (MADELINE) 180 MG Oral Tab Take 1 Tab by mouth DAILY. ? fluticasone (FLONASE) 50 MCG/ACT Nasal Suspension Huxford 2 Sprays in nose DAILY. ? fluticasone-salmeterol diskus (ADVAIR DISKUS) 250-50 MCG/DOSE Inhalation AEROSOL POWDER, BREATH ACTIVATED Take 1 INHL by inhalation TWICE DAILY. ? Levonorgest-Eth Estrad -Day 0.15-0.03 MG Oral Tab Take 1 Day by mouth DAILY. ? lithium 300 MG Oral Cap Take 300 mg by mouth TWICE DAILY. ? montelukast (SINGULAIR) 10 MG Oral Tab Take 1 Tab by mouth DAILY. ? pantoprazole (PROTONIX) 20 MG Oral Tab EC Take 1 Tab by mouth DAILY. ? valacyclovir (VALTREX) 500 MG Oral Tab Take 1 Tab by mouth DAILY. No current facility-administered medications for this visit. Allergies Allergen Reactions ? Reglan MOLD MOVER Reaction Social History Socioeconomic History ? Marital status: Single Spouse name: Not on file ? Number of children: Not on file ? Years of education: Not on file ? Highest education level: Not on file Occupational History ? Not on file Social Needs ? Financial resource strain: Not on file ? Food insecurity Worry: Not on file Inability: Not on file ? Transportation needs Medical: Not on file Non-medical: Not on file Tobacco Use ? Smoking status: Current Every Day Smoker ? Smokeless tobacco: Never Used Substance and Sexual Activity ? Alcohol use: Not on file ? Drug use: Not on file ? Sexual activity: Yes Partners: Male control/protection: Vaginal Contraceptive Ring Lifestyle ? Physical activity Days per week: Not on file Minutes per session: Not on file ? Stress: Not on file Relationships ? Social connections Talks on phone: Not on file Gets together: Not on file Attends mosque service: Not on file Active member of club or organization: Not on file Attends meetings of clubs or organizations: Not on file Relationship status: Not on file ? Intimate partner violence Fear of current or ex partner: Not on file Emotionally abused: Not on file Physically abused: Not on file Forced sexual activity: Not on file Other Topics Concern ? Not on file Social History Narrative ? Not on file REVIEW OF SYSTEMS: Review of Systems Constitutional: Negative for fever and malaise/fatigue. HENT: Negative for congestion and sore throat. Eyes: Negative for pain. Respiratory: Positive for cough, sputum production and wheezing. Negative for shortness of breath. Cardiovascular: Negative for chest pain and palpitations. Gastrointestinal: Positive for diarrhea. Negative for abdominal pain, nausea and vomiting. Genitourinary: Negative for dysuria. Musculoskeletal: Negative for myalgias. Skin: Negative for rash. Neurological: Positive for headaches. Psychiatric/Behavioral: Negative for depression. The patient has insomnia. Objective PHYSICAL EXAM: VITALS: BP 124/88 | Pulse 94 | Temp 98.2 F (36.8 C) | Wt 236 lb ( 107 kg) | SpO2 98% | BMI 41.81 kg/m Body mass index is 41.81 kg/m. Physical Exam Constitutional: Appearance: She is obese. HENT: Head: Normocephalic. Right Ear: Tympanic membrane normal. Left Ear: Tympanic membrane normal. Nose: Nose normal. Mouth/Throat: Mouth: Mucous membranes are moist. Eyes: Extraocular Movements: Extraocular movements intact. Conjunctiva/sclera: Conjunctivae normal. Pupils: Pupils are equal, round, and reactive to light. Cardiovascular: Rate and Rhythm: Normal rate. Heart sounds: Normal heart sounds. No murmur. Pulmonary: Effort: Pulmonary effort is normal. Breath sounds: Normal breath sounds. Abdominal: General: Bowel sounds are normal. There is no distension. Palpations: There is no mass. Tenderness: There is no abdominal tenderness. Musculoskeletal: General: No swelling. Lymphadenopathy: Cervical: No cervical adenopathy. Skin: General: Skin is warm. Capillary Refill: Capillary refill takes less than 2 seconds. Findings: No rash. Neurological: Mental Status: She is alert and oriented to person, place, and time. Gait: Gait normal. Psychiatric: Mood and Affect: Mood normal. ASSESSMENT / IMPRESSION: ICD-9-CM ICD-10-CM 1. Encounter for female control V25.8 Z30.019 HCG, QUALITATIVE, URINE ( AMB POCT) 2. Mild persistent asthma without complication 493.90 J45.30 albuterol HFA ( VENTOLIN HFA) 108 (90 Base) MCG/ACT Inhalation Aero Soln fluticasone-salmeterol diskus (ADVAIR DISKUS) 250-50 MCG/DOSE Inhalation AEROSOL POWDER, BREATH ACTIVATED montelukast (SINGULAIR) 10 MG Oral Tab 3. Seasonal allergies 477.9 J30.2 fexofenadine (MADELINE) 180 MG Oral Tab fluticasone (FLONASE) 50 MCG/ACT Nasal Suspension montelukast (SINGULAIR) 10 MG Oral Tab 4. Gastroesophageal reflux disease without esophagitis 530.81 K21.9 pantoprazole (PROTONIX) 20 MG Oral Tab EC 5. Genital herpes simplex, unspecified site 054.10 A60.00 valacyclovir (VALTREX ) 500 MG Oral Tab Plan Restart your regular medications Asthma - restart your regular asthma medications Your urine test is negative control pill - take one tablet daily at the same time each day. To Start: You can either start taking the control pills today You can start on the first Wednesday after your period begins (this method can help you to avoid having your period on the weekends, which some women prefer) You can start on the first day of your period. It does not matter which method you choose, but if the start method you choose is more than 5 days from your last menstrual period you will need to use a back up method of control for the first week after starting the pills. If you miss pills: If you miss one pill - take the missed pill as soon as you realize, then continue taking your pills daily as prescribed. You may end up taking two pills on one day, and that is ok. If you miss two or more pills - Take the remaining pills daily as prescribed and use a back up method of control (such as condoms) for one week. Please be aware that this protects against if used properly, but does not protect against sexually transmitted diseases - it is still recommended that you use a condom to protect yourself from STD's. If you have the following symptoms you need to seek medical attention : severe headache, eye pain, chest pain, abdominal pain, shortness of breath or pain in your legs Author: TRISTON Omalley 08/08/2019 13:11 documented in this encounter Plan of Treatment Date Type Specialty Care Team Description 09/05/2019 Office Visit Family Practice Bettie Taylor FNP-C [address] [place] [address] 11/09/2019 Office Visit Internal Medicine Markus Levine MD [address] [place] [address] [phone] Name Type Priority Associated Diagnoses Order Schedule HCG, QUALITATIVE, URINE POCT Routine Encounter for female Ordered: (AMB POCT) control Health Maintenance Due Date Last Done Comments PNEUMOCOCCAL 0-64 YRS (1 of 01/30/2000 1 - PPSV23) PAP SMEAR 2015 DEPRESSION SCREENING 01/19/2020 01/18/2019 DTaP/Tdap/Td Vaccines ( - 01/18/2029 01/18/2019, 06/14/2006, Tdap) 05/07/2006, Additional history exists MENINGOCOCCAL VACCINE IMM Aged Out 06/10/2007, 05/27/2007 No longer eligible based on patient's age to complete this topic HPV IMMUNIZATION SERIES Completed 11/01/2008, 06/01/2008, 04/11/2008 HEPATITIS A IMMUNIZATION Completed 07/17/2010, 07/12/2009 SERIES INFLUENZA VACCINE Completed 01/18/2019, 04/24/2009 documented as of this encounter Goals Goal [...] filedocumented in this encounter Visit Diagnoses Diagnosis Encounter for female control Other specified contraceptive management Mild persistent asthma without complication Unspecified asthma Seasonal allergies Allergic rhinitis, cause unspecified Gastroesophageal reflux disease without esophagitis Esophageal reflux Genital herpes simplex, unspecified site documented in this encounter Insurance Payer Benefit Plan / Subscriber ID Effective Dates Phone Address Type Group [place] [id number] 2019-Present Medicaid [place] ([place] [id number] documented as of this encounter"
--- NOTE | 2019-09-10 18:23 | ED ---
Progress - Progress Note Progress Note: The patient is a sign-out from Dr. Magdaleno Barker MD, to Dr. Hugh Barnard MD, at change of shift at 1800 on 09/10/2019, pending psychiatric evaluation and disposition. Patient requesting Albuterol treatment. Pratima Torres has evaluated the patient and spoke with Dr. Rojas from psychiatry. They agree that the patient is safe for discharge. Diagnosis of bipolar disorder. Re-Evaluation - Re-Evaluation First Eval Re-Evaluation Time: 20:28 Comment: Patient requests Albuterol Course/Dx - Course Course Of Treatment: Patient was signed out by Dr. Barker at shift change. Patient is awaiting for mental health evaluation. Dr. Rojas did the evaluation , and he recommends for the patient to be discharged with a diagnosis of bipolar disorder. Patient is hemodynamically stable. - Diagnoses Provider Diagnoses: Bipolar disorder - Provider Notifications Discussed Care Of Patient With: Sae Rojas - psychiatry Time Discussed With Above Provider: 20:35 Instructed by Provider To: Other - Dr. Rojas and the psychiatry team have evaluted the patient and determined she is appropriate for discharge. - Critical Care Time Critical Care Statement: Critical care time is provided exclusive of any time spent performing procedures. Discharge ED - Sign-Out/Discharge Documenting (check all that apply): Patient Departure - Patient will be discharged home., Receiving Sign-Out Receiving patient FROM: Magdaleno Barker - Patient is a sign-out from Dr. Magdaleno Barker MD, at 1800 on 09/10/2019, pending MHE and disposition. - Discharge Plan Condition: Stable Disposition: HOME Referrals: Markus Levine MD [Primary Care Provider] - - Billing Disposition and Condition Condition: STABLE Disposition: Home - Attestation Statements Document Initiated by Anaibe: Yes Documenting Scribe: Riana Hernandez Provider For Whom Saroj is Documenting (Include Credential): Hugh Barnard MD Scribe Attestation: Riana Jung, anaibed for Hugh Barnard MD on 09/12/19 at 0758. Scribe Documentation Reviewed: Yes Provider Attestation: The documentation as recorded by the Riana whitman accurately reflects the service I personally performed and the decisions made by me, Hugh Barnard MD Status of Scribe Document: Viewed
[2019-09-10 18:55] LABS: Urine Appearance Cloudy; Urine Bilirubin Negative (Negative); Urine Blood Negative (Negative); Urine Color Yellow; Urine Glucose Negative (Negative); Urine Ketones Negative (Negative); Urine Nitrite Negative (Negative); Urine Protein Negative (Negative); Urine Specific Gravity 1.011 (1.010-1.030); Urine Urobilinogen Positive (Negative)
[2019-09-10 19:15] LABS: Urine Benzodiazepine Screen None Detected (None Detect); Urine Opiates Screen None Detected (None Detect)
[2019-09-10 19:20] LABS: Urine Bacteria Absent (Absent); Urine Red Blood Cell Absent (Absent); Urine Squamous Epithelial Cell Present (Absent); Urine White Blood Cell 2+(11-20/hpf) (Absent)
[2019-09-10 19:36] LABS: ABS Basophils 0.1 10^3/ul (0-0.2); ABS Eosinophils 0.3 10^3/ul (0-0.6); ABS Lymphocytes 2.3 10^3/ul (1.0-4.8); ABS Monocytes 0.6 10^3/ul (0-0.8); ABS Neutrophils 5.6 10^3/ul (1.5-7.7); Eosinophil % 3.5 %; Hematocrit 37 % (35-47); Hemoglobin 12.4 g/dL (12.0-16.0); Lymphocyte % 25.3 %; Mean Corpuscular HGB Conc 34 g/dL (31-36); Mean Corpuscular Hemoglobin 29 pg (27-31); Mean Corpuscular Volume 86 fL (80-97); Mean Platelet Volume 7.8 fL (7.4-10.4); Platelet Count 275 10^3/uL (150-450); Red Blood Count 4.28 10^6 /uL (3.70-4.87); Red Cell Distribution Width 15 % (10-15); White Blood Count 8.9 10^3/uL (3.5-10.8)
[2019-09-10 19:52] LABS: ALT 25 U/L (7-52); AST 14 U/L (13-39); Albumin 3.7 g/dL (3.2-5.2); Albumin/Globulin Ratio 1.5 (1-3); Alkaline Phosphatase 55 U/L (34-104); Anion Gap 6 mmol/L (2-11); BUN/Creatinine Ratio 11.7 (8-20); Blood Urea Nitrogen 9 mg/dL (6-24); CO2 Carbon Dioxide 25 mmol/L (22-32); Calcium 8.8 mg/dL (8.6-10.3); Chloride 109 mmol/L (101-111); EGFR African American 110.5 (>60); EGFR Non-African American 91.3 (>60); Globulin 2.5 g/dL (2-4); Glucose 116 mg/dL (70-100); Sodium 140 mmol/L (135-145); Total Protein 6.2 g/dL (6.4-8.9)
[2019-09-10 20:10] LABS: Alcohol < 10 mg/dL (<10); Salicylate < 2.50 mg/dL (<30)
[2019-09-10 20:25] LABS: TSH (Thyroid Stimulating Horm) 0.97 mcIU/mL (0.34-5.60)
[2019-09-10 20:27] LABS: Acetaminophen < 15 mcg/mL
[2019-09-10] MEDS ORDERED: Albuterol HFA INHALER* 8 gm MDI INH ONE (20:28)
[2019-09-10 21:50] VITALS: BP 0/0
--- NOTE | 2019-09-12 16:46 | ED ---
Imaging and Labs Follow Up Follow Up Type: Labs/Cultures Labs/Culture Result: Urine culture growing 25-50k e. coli and normal cristina. Patient Communication/Plan: Pt. seen for MHE. Per ER note pt. had no urinary sxs. Given low colony count and normal cristina and no symptoms, likely contaminant, will not tx at this time. Provider Diagnoses: Bipolar disorder
== END 2019-09-10 21:49 | disposition home or self-care (01) ==
LOC: ED 16:47
DX: R45.851 Suicidal ideations (principal); F14.90 Cocaine use, unspecified, uncomplicated; F31.9 Bipolar disorder, unspecified; F32.9 Major depressive disorder, single episode, unspecified; F17.210 Nicotine dependence, cigarettes, uncomplicated
CPT/HCPCS: 36415; 80053; 80307; 80320; 80329; 81003; 81015; 84443; 85025; 87077; 87086; 87186; 99285; A9270-GY; G0480

== ENCOUNTER 2022-07-06 11:19 | Observation (INO) ==
[2022-07-06] MEDS ORDERED: Ondansetron 4 mg VIAL 2 MG/ML 2 ml VIAL IV ONE (14:58)
[2022-07-06 15:13] LABS: ABS Basophils 0.1 10^3/ul (0-0.2); ABS Eosinophils 0.2 10^3/ul (0-0.6); ABS Monocytes 0.5 10^3/ul (0-0.8); ABS Neutrophils 4.2 10^3/ul (1.5-7.7); Eosinophil % 2.6 %; Hematocrit 37 % (35-47); Hemoglobin 11.9 g/dL (12.0-16.0); Lymphocyte % 37.4 %; Mean Corpuscular HGB Conc 32 g/dL (31-36); Mean Corpuscular Hemoglobin 27 pg (27-31); Mean Corpuscular Volume 86 fL (80-97); Mean Platelet Volume 7.4 fL (7.4-10.4); Platelet Count 291 10^3/uL (150-450); Red Blood Count 4.33 10^6 /uL (3.70-4.87); Red Cell Distribution Width 15 % (10-15)
[2022-07-06 16:03] LABS: HCG Pregnancy 0.93 mIU/mL
[2022-07-06 16:35] LABS: ALT 24 U/L (7-52); Albumin 3.8 g/dL (3.2-5.2); Albumin/Globulin Ratio 1.8 (1-3); Alkaline Phosphatase 75 U/L (35-149); Blood Urea Nitrogen 14 mg/dL (6-24); CO2 Carbon Dioxide 23 mmol/L (22-32); Calcium 8.6 mg/dL (8.6-10.3); Creatinine, Serum 0.71 mg/dL (0.51-0.95); Globulin 2.1 g/dL (2-4); Glucose 141 mg/dL (70-100); Sodium 141 mmol/L (135-145); Total Protein 5.9 g/dL (6.4-8.9); eGFR CKD-EPI 118.7 (>60)
[2022-07-06 16:43] LABS: Anion Gap 6 mmol/L (2-11); Chloride 112 mmol/L (101-111)
[2022-07-06] MEDS ORDERED: Albuterol HFA INHALER 8 gm MDI INH PRN (18:27)
[2022-07-06] MEDS: Nicotine PATCH 14 MG/24 HR PATCH TRANSDERM SCH (19:24)
[2022-07-06] MEDS: Mometasone/Formoter 200/5 MDI INH SCH (20:31)
[2022-07-06] MEDS: Enoxaparin 40 MG/0.4 ML SYR SUBCUT SCH (21:36)
[2022-07-06 23:17] LABS: Potassium Redraw 3.8 mmol/L (3.5-5.0)
[2022-07-07] MEDS ORDERED: Benzocaine (plain) Lozenge 15 MG MT PRN (06:17)
[2022-07-07 06:51] LABS: ABS Basophils 0.1 10^3/ul (0-0.2); ABS Eosinophils 0.2 10^3/ul (0-0.6); ABS Lymphocytes 3.5 10^3/ul (1.0-4.8); ABS Monocytes 0.6 10^3/ul (0-0.8); ABS Neutrophils 3.2 10^3/ul (1.5-7.7); Eosinophil % 2.1 %; Hematocrit 35 % (35-47); Hemoglobin 11.4 g/dL (12.0-16.0); Lymphocyte % 46.4 %; Mean Corpuscular HGB Conc 32 g/dL (31-36); Mean Corpuscular Hemoglobin 28 pg (27-31); Mean Corpuscular Volume 86 fL (80-97); Mean Platelet Volume 7.8 fL (7.4-10.4); Platelet Count 262 10^3/uL (150-450); Red Blood Count 4.11 10^6 /uL (3.70-4.87); Red Cell Distribution Width 15 % (10-15); White Blood Count 7.6 10^3/uL (3.5-10.8)
[2022-07-07] MEDS: Mometasone/Formoter 200/5 MDI INH SCH ×3 (07:27→19:30)
[2022-07-07] MEDS ORDERED: NS 0.9% 1000 ml BAG 1,000 ML IV ONE (08:07)
[2022-07-07] MEDS: CMCS: Lisdexamfetamine 10 mg CAP(NF) PO SCH (08:56)
[2022-07-07] MEDS: Nicotine PATCH 14 MG/24 HR PATCH TRANSDERM SCH (08:56)
[2022-07-07] MEDS ORDERED: Magnesium Sulfate 2 gm BAG 2 GM/50 ML BAG IVPB ONE (12:49)
[2022-07-07 14:15] LABS: TSH Ultra Thyroid Stim Horm 1.16 mcIU/mL (0.34-5.60)
[2022-07-07 14:37] LABS: Activated Partial Thrombo Time 33.7 seconds (26.0-38.0); INR 1.03 (0.88-1.18)
[2022-07-07] MEDS: Enoxaparin 40 MG/0.4 ML SYR SUBCUT SCH (21:35)
[2022-07-08] MEDS: Mometasone/Formoter 200/5 MDI INH SCH (07:51)
[2022-07-08] MEDS: CMCS: Lisdexamfetamine 10 mg CAP(NF) PO SCH (08:58)
[2022-07-08] MEDS: Nicotine PATCH 14 MG/24 HR PATCH TRANSDERM SCH (09:01)
[2022-07-08] MEDS ORDERED: Lidocaine 2% PF 10 ML AMP (OR) ONE (14:56)
[2022-07-08 15:22] LABS: Body Fluid Source Cerebral Spinal
[2022-07-08 15:36] LABS: CSF Glucose 67 mg/dL (40-70)
[2022-07-08 15:40] VITALS: BP 119/86
[2022-07-08] MEDS ORDERED: methylPREDNISolone SOD SUCC 125 mg 2 ML VIAL IV ONE (16:10)
[2022-07-08 17:11] LABS: Body Fluid Appearance Clear; Body Fluid Color Colorless; CSF Tube # 4
[2022-07-08 17:41] LABS: Body Fluid WBC 1 /mcL
== END 2022-07-08 17:15 | disposition home or self-care (01) ==
LOC: ED 11:19 → SUATTDRO 20:10 → INTOOBSV 20:10 → EDHOLD 20:10 → MEDTELE 20:48
PROVIDERS: ADMIT Internal Medicine; ATTEND Internal Medicine

== ENCOUNTER 2024-06-15 17:08 | Inpatient (IN) ==
[2024-06-15 18:59] LABS: ALT 25 U/L (7-52); Acetaminophen < 15 mcg/mL; Albumin 4.6 g/dL (3.5-5.7); Albumin/Globulin Ratio 1.7 (1-3); Alcohol, S < 13 mg/dL (<13); Alkaline Phosphatase 74 U/L (35-149); Anion Gap 5 mmol/L (2-16); Blood Urea Nitrogen 14 mg/dL (6-24); CO2 Carbon Dioxide 25 mmol/L (22-32); Calcium 9.4 mg/dL (8.6-10.3); Chloride 110 mmol/L (101-111); Creatinine, Serum 0.63 mg/dL (0.51-0.95); Globulin 2.7 g/dL (2-4); Glucose 94 mg/dL (70-100); Salicylate < 2.50 mg/dL (<30); Sodium 140 mmol/L (135-145); TSH Ultra Thyroid Stim Horm 0.98 mcIU/mL (0.34-5.60); Total Bilirubin 0.7 mg/dL (0.2-1.0); Total Protein 7.3 g/dL (6.4-8.9); eGFR CKD-EPI 122.3 (>60)
[2024-06-15 19:07] LABS: ABS Basophils 0.1 10^3/uL (0.0-0.1); ABS Eosinophils 0.1 10^3/uL (0.0-0.5); ABS Lymphocytes 1.7 10^3/uL (1.0-4.8); ABS Monocytes 0.4 10^3/uL (0.0-0.9); ABS Neutrophils 4.6 10^3/uL (1.5-7.6); ABS Nucleated RBC 0.05 10^3/ul; Eosinophil % 0.8 %; Hematocrit 43.4 % (35-45); Hemoglobin 14.5 g/dL (11.5-14.3); Lymphocyte % 25.2 %; Mean Corpuscular Hgb Conc 33.5 g/dL (31-36); Mean Corpuscular Volume 92.5 fL (80-97); Mean Platelet Volume 8.1 fL (7.5-11.2); Nucleated Red Blood Cells % 0.7 %/100WBC (0.0-0.8); Platelet Count 201 10^3/uL (150-450); Red Blood Count 4.69 10^6/uL (3.63-4.92); Red Cell Distribution Width 13.6 % (12-17); White Blood Count 6.9 10^3/uL (3.8-11.8)
[2024-06-15] MEDS ORDERED: Al Hydrox/Mg Hydrox/Simet LIQ 30 ML UDC PO PRN (20:57)
[2024-06-15 21:25] LABS: Urine Appearance Clear; Urine Bilirubin Negative (Negative); Urine Blood Negative (Negative); Urine Color Yellow; Urine Glucose Negative (Negative); Urine Ketones Trace (Negative); Urine Nitrite Negative (Negative); Urine Protein Trace (Negative); Urine Specific Gravity 1.032 (1.002-1.030); Urine Urobilinogen 1+ (Negative)
[2024-06-15 21:26] LABS: Urine Bacteria Absent /HPF (Absent); Urine Red Blood Cell 1+(3-5/hpf) /HPF (0-Trace); Urine Squamous Epithelial Cell Present /HPF (Absent); Urine White Blood Cell Trace(0-5/hpf) /HPF (0-Trace)
[2024-06-15 21:41] LABS: Urine Benzodiazepine Screen None Detected (None Detect); Urine Cannabinoids Screen Presumptive Positive (None Detect); Urine Opiates Screen None Detected (None Detect)
[2024-06-16 08:47] LABS: HDL Cholesterol 41.4 mg/dL
[2024-06-16] MEDS: Vitamin THERAPEUTIC TAB PO SCH (09:07)
[2024-06-16] MEDS ORDERED: Albuterol HFA INHALER 8 gm MDI INH PRN (11:47)
[2024-06-16] MEDS ORDERED: Fluticas/Salmet 230/21 HFA(NF) MDI INH SCH (12:00)
[2024-06-16] MEDS: Cholecalciferol (VIT D3) 1,000 unit TAB PO SCH (13:14)
[2024-06-16] MEDS: Fluoxetine 40 mg CAP (NF) PO SCH (13:15)
[2024-06-16] MEDS: Lisdexamfetamine 10 mg CAP(NF) PO SCH (13:54)
[2024-06-16] MEDS: DOXYCYCLINE HYCLATE 50 MG PO SCH (14:00)
[2024-06-16] MEDS: BUPRENORPHINE HCL 150 MCG SL SCH (16:28)
[2024-06-16] MEDS: Nicotine GUM 4MG FRUIT FLAVOR PO PRN (18:35)
[2024-06-16] MEDS: Mometasone/Formoter 200/5 MDI INH SCH (18:36)
[2024-06-17] MEDS: BUPRENORPHINE HCL 150 MCG SL SCH (08:49)
[2024-06-17] MEDS: Lidocaine PATCH 5% PATCH TRANSDERM PRN (23:47)
[2024-06-19] MEDS: PAIN RELIEVING RUB (MENTHOL/SALICYLATE) 1 APPLIC TUBE TOPICAL PRN (01:54)
[2024-06-21 09:47] VITALS: BP 115/77
== END 2024-06-21 12:25 | disposition home or self-care (01) | DRG 751 ==
LOC: ED 17:08 → EDHOLD 20:58 → BSU 23:23
PROVIDERS: ADMIT Psychiatry & Neurology Psychiatry; ATTEND Psychiatry & Neurology Psychiatry